=== PATIENT | male | born 1950 | race Caucasian/White ===

== ENCOUNTER → 2021-04-08 14:11 | Outpatient (BNVA) | payer OTHER, SELFPAY | PROVIDERS: PCP Family Medicine; Visit Provider Urology | DX: R35.0 Frequency of micturition (principal); N30.11 Interstitial cystitis (chronic) with hematuria; R35.1 Nocturia; N20.0 Calculus of kidney; N40.1 Benign prostatic hyperplasia with lower urinary tract symptoms; N13.8 Other obstructive and reflux uropathy; Z88.8 Allergy status to other drugs, medicaments and biological substances; Z79.899 Other long term (current) drug therapy | CPT/HCPCS: 51798; 99212 ==

== ENCOUNTER → 2021-10-10 10:49 | Outpatient (BNVA) | payer OTHER, SELFPAY | PROVIDERS: PCP Family Medicine; Visit Provider Urology ==

== ENCOUNTER → 2022-04-14 11:20 | Outpatient (BNVA) | payer OTHER, SELFPAY | PROVIDERS: PCP Family Medicine; Visit Provider Urology | DX: N40.1 Benign prostatic hyperplasia with lower urinary tract symptoms (principal); N13.8 Other obstructive and reflux uropathy; R35.0 Frequency of micturition; N20.0 Calculus of kidney; N30.11 Interstitial cystitis (chronic) with hematuria | CPT/HCPCS: 51798; 99212 ==

== ENCOUNTER → 2022-10-20 14:55 | Outpatient (BNVA) | payer OTHER, SELFPAY | PROVIDERS: PCP Family Medicine; Visit Provider Urology | DX: Z13.89 Encounter for screening for other disorder (principal) ==

== ENCOUNTER 2023-04-20 13:47 | Outpatient (AMB) | payer OTHER, SELFPAY ==
--- NOTE | 2023-04-20 13:48 | A.OFFVIS_ITS ---
Intake Intake Visit Reasons: 6m follow up/PVR Intake Note: Patient is present for Follow Up PVR Urology Med: Finasteride, Tamsulosin Antibiotic Allergy: Erythromycin, Blood Thinner: None Pharmacy: [facility] Allergies erythromycin base [ERYTHROMYCIN BASE] Allergy (Severe, Verified 04/20/23 13:54) GI UPSET hydrochlorothiazide [HYDROCHLOROTHIAZIDE] Allergy (Severe, Verified 04/20/23 13:54) PANCREATITIS zolpidem [ZOLPIDEM] Allergy (Intermediate, Verified 04/20/23 13:54) LACK OF EFFECT latex Allergy (Mild, Verified 04/20/23 13:54) Rash ibuprofen [IBUPROFEN] Adverse Reaction (Intermediate, Verified 04/20/23 13:54) LOOSE STOOLS HPI HPI Comments History of Present Illness Details David is a pleasant male. He is a patient of Dr. Mccormick. He is seen for the following urologic conditions - interstitial cystitis - lower urinary tract symptoms Bladder currently stable Does have triggers from spicy food Good response when he takes Tums and Tagamet as needed [facility] Elm[facility] Medications represcribed Six month follow-up Interstitial cystitis Longstanding Primary therapy diet modification Current therapy Pyridium and Elmiron Also takes Tums and Tagamet as needed Lower urinary tract symptoms Longstanding Response to finasteride and tamsulosin [facility]rol[facility] No stones on prior ultrasound September 2018 [facility] Medical History Interstitial cystitis (chronic) with hematuria Nocturia Renal stones Review of Systems Const Denies chills and Denies fever(s) Card Reports no additional complaints and Denies syncope Resp Denies cough GI Denies abdominal pain and Denies heartburn Reports as per HPI and Denies change in libido Neuro Denies syncope Psych Denies change in libido Endo Denies change in libido Physical Exam Const General: cooperative, healthy appearing, comfortable and no acute distress Orientation/consciousness: patient oriented x3 HEENT Face and sinus: Yes normal facial exam Mouth: moist mucous membranes Neck Neck: Yes normal visual inspection, Yes full ROM and Yes trachea midline Chest Chest palpation & inspection: normal inspection of the chest Resp Effort & Inspection: normal respiratory effort, able to speak in complete sentences and no respiratory distress GI Inspection: Yes normal to inspection Back/Spine/Pelvis Cervical Spine: normal cervical lordosis Thoracic/Lumbar Spine: thoracic and lumbar spine normal to inspection Skin General skin exam: no rashes or lesions noted Neuro General: patient oriented x3, gait normal, tone normal and moves all extremities Extrem General: Yes normal to inspection and Yes capillary refill normal Assessment & Plan Assessment & Plan (1) Interstitial cystitis (chronic) with hematuria: Code(s): N30.11 - Interstitial cystitis (chronic) with hematuria (2) Nocturia: Code(s): R35.1 - Nocturia (3) BPH w urinary obs/LUTS: Code(s): N40.1 - Benign prostatic hyperplasia with lower urinary tract symptoms; N13.8 - Other obstructive and reflux uropathy Plan Six month follow-up Orders: Orders AMB Urinalysis Automated 04/20/23 Z13.9 - Encounter for screening, unspecified AMB Post Void Residual by ultrasound 04/20/23 N40.1 - Benign prostatic hyperplasia with lower urinary tract symptoms, N13.8 - Other obstructive and reflux uropathy Medications: Refilled finasteride 5 mg PO DAILY 90 tabs 1RF 90 days N40.1 - Benign prostatic hyperplasia with lower urinary tract symptoms, N13.8 - Other obstructive and reflux uropathy tamsulosin 0.4 mg PO BEDTIME 90 caps 1RF 90 days N40.1 - Benign prostatic hyperplasia with lower urinary tract symptoms, N13.8 - Other obstructive and reflux uropathy Patient Instructions: Imaging studies, laboratory and physical exam results were discussed and reviewed in detail. No major barriers to patient understanding were identified. An opportunity to ask questions regarding the treatment plan was provided. All questions were answered. The patient expressed understanding and agreement with the above treatment plan. The patient is aware they should contact our office by phone for worsening of their current condition or the appearance of new urologic symptoms. Compliance is encouraged with any medications and followup testing that is ordered. It is a privilege to participate in the urologic care of your patient. If you have any questions or concerns regarding treatment for the above conditions, or other urologic issues, please do not hesitate to contact me. The office telephone contact is [phone]. This note is constructed using voice recognition software. While every effort has been made to ensure accuracy green building design specialist errors may have been included. Yours sincerely, Dr Daniel Brasher MD, [facility] - Urology Providers of Expert, Compassionate Care for the Genitourinary System Coding Level of Care Code Est Pt Level 3 (53882) Diagnoses Interstitial cystitis (chronic) with hematuria N30.11 Nocturia R35.1 BPH w urinary obs/LUTS N40.1; N13.8
== END 2023-04-20 14:51 | disposition home or self-care (01) ==
PROVIDERS: PCP Family Medicine; Visit Provider Urology
DX: N40.1 Benign prostatic hyperplasia with lower urinary tract symptoms (principal); N13.8 Other obstructive and reflux uropathy; N30.11 Interstitial cystitis (chronic) with hematuria; R35.1 Nocturia
CPT/HCPCS: 99213

== ENCOUNTER → 2023-04-20 13:47 | Outpatient (BNVA) | payer OTHER, SELFPAY | PROVIDERS: PCP Family Medicine; Visit Provider Urology | DX: N40.1 Benign prostatic hyperplasia with lower urinary tract symptoms (principal); N13.8 Other obstructive and reflux uropathy; N30.11 Interstitial cystitis (chronic) with hematuria; R35.1 Nocturia | CPT/HCPCS: 99212 ==

== ENCOUNTER 2023-12-09 10:45 | Outpatient (AMB) | payer OTHER, SELFPAY ==
--- NOTE | 2023-12-09 10:53 | A.OFFVIS_ITS ---
Intake Intake Visit Reasons: 6M PVR confirmed Intake Note: Patient presents today for a follow up on: PVR Meds- Finasteride, Pyridium prn, Tamsulosin, Elmiron Allergies to Antibiotic- Erytrhomycin Blood Thinner- None Post Void Residual: 27ml Tap Builder Required: No Accompanied by: Self / Same As Patient Allergies erythromycin base [ERYTHROMYCIN BASE] Allergy (Severe, Verified 12/09/23 10:55) GI UPSET hydrochlorothiazide [HYDROCHLOROTHIAZIDE] Allergy (Severe, Verified 12/09/23 10:55) PANCREATITIS zolpidem [ZOLPIDEM] Allergy (Intermediate, Verified 12/09/23 10:55) LACK OF EFFECT latex Allergy (Mild, Verified 12/09/23 10:55) Rash ibuprofen [IBUPROFEN] Adverse Reaction (Intermediate, Verified 12/09/23 10:55) LOOSE STOOLS Medication List - Last Reconciled 12/09/23 by Daniel Brasher MD cholecalciferol (vitamin D3) 1,250 mcg PO QWEEK diclofenac sodium 1% grams topical finasteride 5 mg PO DAILY 90 days fluticasone propionate 50 mcg/actuation 1 spray intranasal DAILY levothyroxine (Synthroid) 0 mcg PO qytzjn-fpayknzx-srkbnuz 6,000-19,000 -30,000 unit (Creon) caps PO oxycodone 5 mg PO TID PRN pentosan polysulfate sodium (Elmiron) 200 mg (2 x 100 mg) PO BID 90 days phenazopyridine (Pyridium) 200 mg PO TID 90 days ramipril 2.5 mg PO DAILY tamsulosin (Flomax) 0.4 mg PO BEDTIME 30 days tamsulosin 0.4 mg PO BEDTIME 90 days vitamin A 4 caps PO DAILY HPI HPI Comments History of Present Illness Details David is a pleasant male. He is a patient of Dr. Mccormick. 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 Receives prostate medications [facility] Elmiron [facility] Medications represcribed Six month follow-up Interstitial cystitis Longstanding Primary therapy diet modification Current therapy Pyridium and Elmiron Also takes Tums and Tagamet as needed Lower urinary tract symptoms Longstanding Response to finasteride and tamsulosin [facility]rol[facility] No stones on prior ultrasound September 2018 [facility] Medical History Renal stones Interstitial cystitis (chronic) with hematuria Nocturia Review of Systems Const Denies chills and Denies fever(s) Card Reports no additional complaints and Denies syncope Resp Denies cough GI Denies abdominal pain and Denies heartburn Reports as per HPI and Denies change in libido Neuro Denies syncope Psych Denies change in libido Endo Denies change in libido Physical Exam Const General: cooperative, healthy appearing, comfortable and no acute distress Orientation/consciousness: patient oriented x3 HEENT Face and sinus: Yes normal facial exam Mouth: moist mucous membranes Neck Neck: Yes normal visual inspection, Yes full ROM and Yes trachea midline Chest Chest palpation & inspection: normal inspection of the chest Resp Effort & Inspection: normal respiratory effort, able to speak in complete sentences and no respiratory distress GI Inspection: Yes normal to inspection Back/Spine/Pelvis Cervical Spine: normal cervical lordosis Thoracic/Lumbar Spine: thoracic and lumbar spine normal to inspection Skin General skin exam: no rashes or lesions noted Neuro General: patient oriented x3, gait normal, tone normal and moves all extremities Extrem General: Yes normal to inspection and Yes capillary refill normal Office Procedures Post Void Residual Post Residual Void Post Void Residual (PVR): 27 [id number]-[id number] Void Residual by ultrasound Assessment & Plan Assessment & Plan (1) Renal stones: Code(s): N20.0 - Calculus of kidney (2) BPH w urinary obs/LUTS: Code(s): N40.1 - Benign prostatic hyperplasia with lower urinary tract symptoms; N13.8 - Other obstructive and reflux uropathy (3) Interstitial cystitis (chronic) with hematuria: Code(s): N30.11 - Interstitial cystitis (chronic) with hematuria Plan Six-month follow-up office Orders: Orders AMB Post Void Residual by ultrasound Today R33.9 - Retention of urine, unspecified Medications: Refilled pentosan polysulfate sodium (Elmiron) 200 mg (2 x 100 mg) PO BID 90 days 360 caps 1RF interstitial cystitis finasteride 5 mg PO DAILY 90 days 90 tabs 1RF N13.8 - Other obstructive and r eflux uropathy, N40.1 - Benign prostatic hyperplasia with lower urinary tract symptoms tamsulosin 0.4 mg PO BEDTIME 90 days 90 caps 1RF N13.8 - Other obstructive and reflux uropathy, N40.1 - Benign prostatic hyperplasia with lower urinary tract symptoms Patient Instructions: Imaging studies, laboratory and physical exam results were discussed and reviewed in detail. No major barriers to patient understanding were identified. An opportunity to ask questions regarding the treatment plan was provided. All questions were answered. The patient expressed understanding and agreement with the above treatment plan. The patient is aware they should contact our office by phone for worsening of their current condition or the appearance of new urologic symptoms. Compliance is encouraged with any medications and followup testing that is ordered. It is a privilege to participate in the urologic care of your patient. If you have any questions or concerns regarding treatment for the above conditions, or other urologic issues, please do not hesitate to contact me. The office telephone contact is [phone]. This note is constructed using voice recognition software. While every effort has been made to ensure accuracy code enforcement supervisor errors may have been included. Yours sincerely, Dr Daniel Brasher MD, [facility] - Urology Providers of Expert, Compassionate Care for the Genitourinary System Coding Level of Care Code Est Pt Level 3 (12460) Diagnoses Renal stones N20.0 BPH w urinary obs/LUTS N40.1; N13.8 Interstitial cystitis (chronic) with hematuria N30.11 CPT Codes Post Residual Void - PVR CPT Code: 50935-Kzss Void Residual by ultrasound ([id number])
== END 2023-12-09 11:25 | disposition home or self-care (01) ==
PROVIDERS: PCP Family Medicine; Referring Provider Family Medicine; Visit Provider Urology
DX: N20.0 Calculus of kidney (principal); N40.1 Benign prostatic hyperplasia with lower urinary tract symptoms; N13.8 Other obstructive and reflux uropathy; N30.11 Interstitial cystitis (chronic) with hematuria
CPT/HCPCS: 99213

== ENCOUNTER → 2023-12-09 10:45 | Outpatient (BNVA) | payer OTHER, SELFPAY | PROVIDERS: PCP Family Medicine; Visit Provider Urology | DX: N20.0 Calculus of kidney (principal); N40.1 Benign prostatic hyperplasia with lower urinary tract symptoms; N13.8 Other obstructive and reflux uropathy; N30.11 Interstitial cystitis (chronic) with hematuria | CPT/HCPCS: 51798; 99212 ==

== ENCOUNTER 2024-06-08 10:52 | Outpatient (AMB) | payer OTHER, SELFPAY ==
--- NOTE | 2024-06-08 11:06 | MHC.OFFVIS ---
Intake Visit Reasons: 6m/PVR Intake Note: Patient is Present for PVR Urology Med: Tamsulosin, Finasteride Antibiotic Allergy:None Blood Thinner: None Last PVR: 27ml Todays PVR: 0ml Rehabilitation Engineer Required: No Accompanied by: Self / Same As Patient Allergies erythromycin base [ERYTHROMYCIN BASE] Allergy (Severe, Verified 06/08/24 11:31) GI UPSET hydrochlorothiazide [HYDROCHLOROTHIAZIDE] Allergy (Severe, Verified 06/08/24 11:31) PANCREATITIS zolpidem [ZOLPIDEM] Allergy (Intermediate, Verified 06/08/24 11:31) LACK OF EFFECT latex Allergy (Mild, Verified 06/08/24 11:31) Rash ibuprofen [IBUPROFEN] Adverse Reaction (Intermediate, Verified 06/08/24 11:31) LOOSE STOOLS Medication List - Last Reconciled 06/08/24 by Daniel Brasher MD cholecalciferol (vitamin D3) 1,250 mcg PO QWEEK diclofenac sodium 1% grams topical finasteride 5 mg PO DAILY 90 days fluticasone propionate 50 mcg/actuation 1 spray intranasal DAILY levothyroxine (Synthroid) 0 mcg PO nqszln-wzmozslz-egnosaw 6,000-19,000 -30,000 unit (Creon) caps PO oxycodone 5 mg PO TID PRN pentosan polysulfate sodium (Elmiron) 100 mg PO ONCE 90 days phenazopyridine (Pyridium) 200 mg PO TID 90 days ramipril 2.5 mg PO DAILY tamsulosin 0.4 mg PO BEDTIME 90 days vitamin A 4 caps PO DAILY HPI Comments Details: David is a pleasant male. He is a patient of Dr. Mccormick. He is seen for the following urologic conditions - interstitial cystitis - lower urinary tract symptoms Six-month bladder follow-up Bladder currently stable Does have triggers from spicy food Good response when he takes Tums and Tagamet as needed [facility] Elmiron [facility] - [facility]ide, tamsulosin Medications represcribed Six month follow-up Interstitial cystitis Longstanding Primary therapy diet modification Current therapy Pyridium and Elmiron Also takes Tums and Tagamet as needed Lower urinary tract symptoms Longstanding Response to finasteride and tamsulosin [facility] No stones on prior ultrasound September [facility] Medical History Renal stones Interstitial cystitis (chronic) with hematuria Nocturia Review of Systems Const Denies chills and Denies fever(s) Card Reports no additional complaints and Denies syncope Resp Denies cough GI Denies abdominal pain and Denies heartburn Reports as per HPI and Denies change in libido Neuro Denies syncope Psych Denies change in libido Endo Denies change in libido Physical Exam Const General: cooperative, healthy appearing, comfortable and no acute distress Orientation/consciousness: patient oriented x3 HEENT Face and sinus: Yes normal facial exam Mouth: moist mucous membranes Neck Neck: Yes normal visual inspection, Yes full ROM and Yes trachea midline Chest Chest palpation & inspection: normal inspection of the chest Resp Effort & Inspection: normal respiratory effort, able to speak in complete sentences and no respiratory distress GI Inspection: Yes normal to inspection Back/Spine/Pelvis Cervical Spine: normal cervical lordosis Thoracic/Lumbar Spine: thoracic and lumbar spine normal to inspection Skin General skin exam: no rashes or lesions noted Neuro General: patient oriented x3, gait normal, tone normal and moves all extremities Extrem General: Yes normal to inspection and Yes capillary refill normal Office Procedures Post Void Residual Post Residual Void Post Void Residual (PVR): 0 [id number]-Evdz Void Residual by ultrasound Assessment & Plan Assessment & Plan (1) Nocturia: Code(s): R35.1 - Nocturia Category: Medical (2) Interstitial cystitis (chronic) with hematuria: Code(s): N30.11 - Interstitial cystitis (chronic) with hematuria Category: Medical Plan Six-month follow-up office Orders: Orders AMB Post Void Residual by ultrasound 06/08/24 N13.8 - Other obstructive and reflux uropathy, N40.1 - Benign prostatic hyperplasia with lower urinary tract symptoms Medications: Discontinued tamsulosin Discontinued Reason: Patient Completed Course 0.4 mg PO BEDTIME 30 days 30 caps 0RF N13.8 - Other obstructive and reflux uropathy, N40.1 - Benign prostatic hyperplasia with lower urinary tract symptoms Patient Instructions: Imaging studies, laboratory and physical exam results were discussed and reviewed in detail. No major barriers to patient understanding were identified. An opportunity to ask questions regarding the treatment plan was provided. All questions were answered. The patient expressed understanding and agreement with the above treatment plan. The patient is aware they should contact our office by phone for worsening of their current condition or the appearance of new urologic symptoms. Compliance is encouraged with any medications and followup testing that is ordered. It is a privilege to participate in the urologic care of your patient. If you have any questions or concerns regarding treatment for the above conditions, or other urologic issues, please do not hesitate to contact me. The office telephone contact is [phone]. This note is constructed using voice recognition software. While every effort has been made to ensure accuracy lip reading teacher errors may have been included. Yours sincerely, Dr Daniel Brasher MD, [facility] - Urology Providers of Expert, Compassionate Care for the Genitourinary System Coding Level of Care Code Est Pt Level 3 (98215) Diagnoses Nocturia R35.1 Interstitial cystitis (chronic) with hematuria N30.11 CPT Codes Post Residual Void - PVR CPT Code: 85444-Nhca Void Residual by ultrasound ([id number])
== END 2024-06-08 11:59 | disposition home or self-care (01) ==
PROVIDERS: PCP Family Medicine; Referring Provider Family Medicine; Visit Provider Urology
DX: R35.1 Nocturia (principal); N30.11 Interstitial cystitis (chronic) with hematuria
CPT/HCPCS: 99213

== ENCOUNTER → 2024-06-08 10:52 | Outpatient (BNVA) | payer OTHER, SELFPAY | PROVIDERS: PCP Family Medicine; Visit Provider Urology | DX: N30.11 Interstitial cystitis (chronic) with hematuria (principal); N20.0 Calculus of kidney; R35.1 Nocturia | CPT/HCPCS: 51798; 99212 ==

== ENCOUNTER 2024-12-06 10:39 | Outpatient (AMB) | payer OTHER, SELFPAY ==
--- NOTE | 2024-12-06 10:52 | A.OFFVIS_ITS ---
Intake Visit Reasons: 6 month Intake Note: Patient is present for 6M F/U Urology Medication:PENTOSAN POLYSULFATE,PHENAZOPYRIDINE,TAMSULOSIN,FINASTERTIDE Antibiotic Allergy:ERYTHROMYCIN Blood Thinner:NONE Seat Cover Installer Required: No Allergies erythromycin base [ERYTHROMYCIN BASE] Allergy (Severe, Verified 12/06/24 10:53) GI UPSET hydrochlorothiazide [HYDROCHLOROTHIAZIDE] Allergy (Severe, Verified 12/06/24 10:53) PANCREATITIS zolpidem [ZOLPIDEM] Allergy (Intermediate, Verified 12/06/24 10:53) LACK OF EFFECT latex Allergy (Mild, Verified 12/06/24 10:53) Rash ibuprofen [IBUPROFEN] Adverse Reaction (Intermediate, Verified 12/06/24 10:53) LOOSE STOOLS HPI Comments Details: David is a pleasant male. He is a patient of Dr. Mccormick. He is seen for the following urologic conditions - interstitial cystitis - lower urinary tract symptoms Six-month bladder follow-up Bladder currently stable Does have triggers from spicy food Good response when he takes Tums and Tagamet as needed Receives prostate medications and Elmiron through the [place] - finasteride, tamsulosin Medications represcribed Six month follow-up Interstitial cystitis Longstanding Primary therapy diet modification Current therapy Pyridium and Elmiron Also takes Tums and Tagamet as needed Lower urinary tract symptoms Longstanding Response to finasteride and tamsulosin Medications through [place] Nephrolithiasis No stones on prior ultrasound September 2018 [facility] Medical History Renal stones Interstitial cystitis (chronic) with hematuria Nocturia Results AMB Urinalysis, Automated UA Leukoctes 0 Alphonso/uL Last Edit by JEN De León on 12/06/24 11:19 UA Nitrite Negative Last Edit by JEN De León on 12/06/24 11:19 UA Urobilinogen 0.2 mg/dL Last Edit by JEN De León on 12/06/24 11:1 9 UA Protein 15 mg/dL Last Edit by JEN De León on 12/06/24 11:19 UA pH 5.0 Last Edit by JEN De León on 12/06/24 11:19 UA Blood 0 José Miguel/uL Last Edit by JEN De León on 12/06/24 11:19 UA Specific [place] 1.030 Last Edit by JEN De León on 12/06/24 11: 19 UA Ketone Positive Last Edit by JEN De León on 12/06/24 11:19 UA Bilirubin 0 mg/dL Last Edit by JEN De León on 12/06/24 11:19 UA Glucose 0 mg/dL Last Edit by JEN De León on 12/06/24 11:19 Assessment & Plan Assessment & Plan Orders: Orders AMB Urinalysis Automated Today Z13.9 - Encounter for screening, unspecified Medications: Refilled pentosan polysulfate sodium (Elmiron) 100 mg PO DAILY 90 days 90 caps 1RF interstitial cystitis N13.8 - Other obstructive and reflux uropathy, N40.1 - Benign prostatic hyperplasia with lower urinary tract symptoms Coding
== END 2024-12-06 11:31 | disposition home or self-care (01) ==
LOC: HO.HUSH 10:40
PROVIDERS: PCP Family Medicine; Visit Provider Urology
DX: Z13.9 Encounter for screening, unspecified (principal)

== ENCOUNTER → 2024-12-06 10:39 | Outpatient (BNVA) | payer OTHER, SELFPAY | PROVIDERS: PCP Family Medicine; Visit Provider Urology | DX: N40.1 Benign prostatic hyperplasia with lower urinary tract symptoms (principal); N13.8 Other obstructive and reflux uropathy; R35.1 Nocturia; N30.11 Interstitial cystitis (chronic) with hematuria | CPT/HCPCS: 81003; 99212 ==

== ENCOUNTER 2025-06-19 11:35 | Outpatient (AMB) | payer OTHER, SELFPAY ==
--- NOTE | 2025-06-19 11:43 | MHC.OFFVIS ---
Intake Visit Reasons: 6m follow up Intake Note: Patient is present for 6M F/U Urology Medication:TAMSULOSIN,FINASTERTIDE, elmiron Blood Thinner:NONE Bunk House Worker Required: No Accompanied by: Self / Same As Patient Allergies erythromycin base (ERYTHROMYCIN BASE) Allergy (Severe, Verified 06/19/25 11:45) GI UPSET hydrochlorothiazide (HYDROCHLOROTHIAZIDE) Allergy (Severe, Verified 06/19/25 11:45) PANCREATITIS zolpidem (ZOLPIDEM) Allergy (Intermediate, Verified 06/19/25 11:45) LACK OF EFFECT latex Allergy (Mild, Verified 06/19/25 11:45) Rash ibuprofen (IBUPROFEN) Adverse Reaction (Intermediate, Verified 06/19/25 11:45) LOOSE STOOLS HPI Comments Details: David is a pleasant male. He is a patient of Dr. Mccormick. He is seen for the following urologic conditions - interstitial cystitis - lower urinary tract symptoms Six-month bladder follow-up Good response when he takes Tums and Tagamet as needed [facility] - [facility]ide, tamsulosin Interstitial cystitis Longstanding Primary therapy diet modification Current therapy Pyridium and Elmiron Also takes Tums and Tagamet as needed Lower urinary tract symptoms Longstanding Response to finasteride and tamsulosin [facility] No stones on prior ultrasound September 2018 [facility] Medical History Renal stones Interstitial cystitis (chronic) with hematuria Nocturia Review of Systems Const Denies chills and Denies fever(s) Card Reports no additional complaints and Denies syncope Resp Denies cough GI Denies abdominal pain and Denies heartburn Reports as per HPI and Denies change in libido Neuro Denies syncope Psych Denies change in libido Endo Denies change in libido Physical Exam Const General: cooperative, healthy appearing, comfortable and no acute distress Orientation/consciousness: patient oriented x3 HEENT Face and sinus: Yes normal facial exam Mouth: moist mucous membranes Neck Neck: Yes normal visual inspection, Yes full ROM and Yes trachea midline Chest Chest palpation & inspection: normal inspection of the chest Resp Effort & Inspection: normal respiratory effort, able to speak in complete sentences and no respiratory distress GI Inspection: Yes normal to inspection Back/Spine/Pelvis Cervical Spine: normal cervical lordosis Thoracic/Lumbar Spine: thoracic and lumbar spine normal to inspection Skin General skin exam: no rashes or lesions noted Neuro General: patient oriented x3, gait normal, tone normal and moves all extremities Extrem General: Yes normal to inspection and Yes capillary refill normal Assessment & Plan Assessment & Plan (1) Interstitial cystitis (chronic) with hematuria: Code(s): N30.11 - Interstitial cystitis (chronic) with hematuria Category: Medical (2) Renal stones: Code(s): N20.0 - Calculus of kidney Category: Medical Plan Six-month follow-up Patient Instructions: This note is constructed using voice recognition software. While every effort has been made to ensure accuracy cylinder press operator apprentice errors may have been included. Imaging studies, laboratory and physical exam results were discussed and reviewed in detail. No major barriers to patient understanding were identified. An opportunity to ask questions regarding the treatment plan was provided. All questions were answered. The patient expressed understanding and agreement with the above treatment plan. The patient is aware they should contact our office by phone for worsening of their current condition or the appearance of new urologic symptoms. Compliance is encouraged with any medications and followup testing that is ordered. It is a privilege to participate in the urologic care of your patient. If you have any questions or concerns regarding treatment for the above conditions, or other urologic issues, please do not hesitate to contact me. The office telephone contact is [phone]. Sincerely, Dr Daniel Brasher MD, [facility] - Urology Compassionate Specialist Care for the Genitourinary System Coding Level of Care Code Est Pt Level 3 (36478) Complex visit Add On G2211 Diagnoses Interstitial cystitis (chronic) with hematuria N30.11 Renal stones N20.0
--- OUTSIDE RECORDS SUMMARY | 2025-06-19 15:05 | XMS_ITS | Encounter Summary ---
Author Organization [facility] Address [address] [place] [address] Phone Care Team Providers Care Farm Machine Tender Name Role Phone Dung Mccormick MD Unavailable Sol Flores MD Unavailable [phone] Joe Mcpherson CHURCH BUSINESS ADMINISTRATOR Unavailable [phone] Dung Mccormick MD Primary Care Provider [phone] Geoff Ratliff DO Unavailable [phone] Lindsey Shin SOFA INSPECTOR Unavailable [phone] Sergio Fonseca MD Primary Care Provider Encounter Details Date Type Department Care Team (Latest Contact Info) Description 02/02/2018 Transcribe Orders [facility] Laboratory [address] [place], [place] [id number] Abad Xiao MD [address] [facility] [address] [place] [address] [email or web address] Anemia, unspecified type (Primary Dx); Liver cirrhosis secondary to nonalcoholic steatohepatitis (GARCIA) Social History Tobacco Use Types Packs/Day Years Used Date Smoking Tobacco: Former Cigarettes Q uit: 07/20/1997 Smokeless Tobacco: Never Alcohol Use Standard Drinks/Week Comments No 0 (1 standard drink = 0.6 oz pur e alcohol) Sex and Gender Information Value Date Recorded Sex Assigned at Male 04/16/2019 1:02 PM EDT Legal Sex Male 10:01 PM EDT Gender Identity Male 04/16/2019 1:02 PM EDT Sexual Orientation Not on file documented as of this encounter Plan of Treatment Upcoming Encounters Date Type Department Care Team (Late st Contact Info) Description 07/16/2025 1:00 PM EST Office Visit [facility] Pul[facility], Allergy [facility] Critical Care Medicine [address] [place] [address] [place] [address] Moose No MD [address] [place] [phone] documented as of this encounter Results * Miscellaneous lab test (02/02/2018 11:44 AM EDT) TESTS REQUESTED FIBROSURE [facility] SPECIMEN/TUBE TYPE RED TOP PROTECT FROM LIGHT [facility] REQUEST RECEIVED Request received. A separate order for the requested test will be generated by the laboratory. [facility] Blood 02/02/2018 11:4 4 AM EDT 02/02/2018 11:50 AM EDT us Abad Xiao MD LAB BLOOD ORDERABLES Final R esult [address] [address] * (ABNORMAL) Comprehensive metabolic panel (02/02/2018 11:44 AM EDT) SODIUM 145 133 - 146 mmol/L [facility] POTASSIUM 4.5 3.3 - 5.1 mmol/L [facility] CHLORIDE 105 96 - 108 mmol/L [facility] CO2 28 21 - 35 mmol/L [facility] BUN 16 6 - 19 mg/dL [facility] CREATININE 1.50 0.5 - 1.5 mg/dL [facility] GLUCOSE 107(H) 70 - 99 mg/dL [facility] ALBUMIN 4.6 3.9 - 4.8 g/dL [facility] TOTAL PROTEIN 7.5 6.5 - 8.0 g/dL [facility] CALCIUM 9.0 8.4 - 10.3 mg/dL [facility] ALKALINE PHOSPHATASE 160(H) 39 - 117 U/L [facility] TOTAL BILIRUBIN 0.8 0.0 - 1.2 mg/dL [facility] AST 25 0 - 37 U/L [facility] ALT 26 0 - 40 U/L [facility] GLOBULIN 2.9 1 - 4.8 g/dL [facility] EGFR 48(L) >59 mL/min/1.7 3m2 [facility] Comment:If patient is black, multiply result by 1.159. The eGFR calculation has changed from the MDRD equation to the CKD-EPI equation as of November 02, 2017. ANION GAP 17 10 - 20 mmol/L [facility] Blood 02/02/2018 11:4 4 AM EDT 02/02/2018 11:49 AM EDT us Abad Xiao MD LAB BLOOD ORDERABLES Final R esult Performing Organization Address City/State/[facility] Co de Phone Number [address] [address] * (ABNORMAL) CBC and differential (02/02/2018 11:44 AM EDT) WBC 4.64 3.40 - 11.20 K/uL [facility] RBC 4.12(L) 4.50 - 5.50 M/uL [facility] HGB 12.5(L) 13.0 - 17.0 g/dL [facility] HCT 38.8(L) 40.0 - 51.0 % [facility] PLT 121(L) 130 - 400 K/uL [facility] MCV 94.2 79.0 - 98.0 fL [facility] MCH 30.3 27.0 - 34.8 pg [facility] MCHC 32.2 31.5 - 36.0 g/dL [facility] RDW 14.4 10.8 - 14.6 % [facility] MPV 9.2(L) 9.4 - 12.4 fl [facility] NRBC 0.00 /100 WBCs [facility] ABSOLUTE NRBC 0.00 K/uL [facility] DIFF METHOD Auto [facility] NEUTS 73.1 45.30 - 77.70 % [facility] LYMPHS 18.1 12.30 - 39.70 % [facility] MONOS 5.8 4.10 - 12.80 % [facility] EOS 2.2 0 - 7.2 % [facility] BASOS 0.4 0 - 2.80 % [facility] Granulocytes, immature (%) 0.4 0.0 - 0.9 % [facility] ABSOLUTE NEUTS 3.39 1.40 - 7.70 K/uL [facility] ABSOLUTE LYMPHS 0.84 0.60 - 3.20 K/uL [facility] ABSOLUTE MONOS 0.27 0.11 - 0.59 K/uL [facility] ABSOLUTE EOS 0.10 0.01 - 0.50 K/uL [facility] ABSOLUTE BASOS 0.02 0.00 - 0.08 K/uL [facility] Granulocytes, immature 0.02 0.00 - 0.05 K/uL [facility] Blood 02/02/2018 11:4 4 AM EDT 02/02/2018 11:49 AM EDT us Abad Xiao MD LAB BLOOD ORDERABLES Final R esult [address] [address] * AFP (non-maternal specimens) (02/02/2018 11:44 AM EDT) AFP (NON-MATERNAL) 2.9 0.8 - 7.5 ng/mL [facility] Blood 02/02/2018 11:4 4 AM EDT 02/02/2018 11:49 AM EDT us Abad Xiao MD LAB BLOOD ORDERABLES Final R esult Performing Organization Address City/[facility]/ZIP Co de Phone Number [address] [address] documented in this encounter Visit Diagnoses Diagnosis Anemia, unspecified type- Primary Liver cirrhosis secondary to nonalcoholic steatohepatitis (GARCIA) documented in this encounter Care Teams Farm Machine Tender Relationship Specialty Start Date End Date Dung Mccormick MD [email or web address] PCP - General Family Medicine 07/21/17 01/03/23 Sergio Fonseca MD [address] [place] [phone] [email or web address] PCP - General Family Medicine 01/04/23 Dung Mccormick MD [email or web address] Historical LMR Provider 06/14/17 Sol Flores MD [address] [place] [phone] [email or web address] Provider 06/14/17 Joe Mcpherson CHURCH BUSINESS ADMINISTRATOR [address] [place] [phone] [email or web address] Historical LMR Provider 06/14/17 09/06/21 Geoff Ratliff DO [address] [place] [phone] [email or web address] Primary Oncologist Hematology and Oncology 09/16/17 Lindsey Shin FNP [address] [place] [address] [email or web address] Nurse Practitioner Oncology 06/11/21 documented as of this encounter Additional Source Comments The information contained in this document represents components of the legal health record. It is not the complete legal health record.[facility]
--- OUTSIDE RECORDS SUMMARY | 2025-06-19 15:05 | XMS_ITS | Clinical Summary ---
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 15 - 40 mm Aortic Valve Mean Gradient 4 mmHg Aortic Valve Time Velocity Integral 308.0 mm Aortic Valve Peak Velocity 1.4 m/s Aortic Valve Peak Gradient 7 mmHg Aortic Arch Diameter 27 mm Aortic Sinus Diameter 27 <40 mm Ascending Aorta Diameter 30 <36 mm Inferior Vena Cava Diameter 10 <21 mm Interventricular Septum Thickness 9 6 - 11 mm Left Ventricle Internal Diameter End Diastole 37 42 - 58 mm Left Ventricle Internal Diameter End Systole 19 <40 mm Left Ventricular Outflow Tract Diameter 18.0 mm LVOT VTI REST 204.0 mm Left Ventricular Outflow Tract Velocity 1.0 m/s Left Ventricular Outflow Tract Gradient at Rest 4 mmHg Left Ventricular Posterior Wall Thickness 9 6 - 11 mm Left Ventricle Ea Lateral Wave Speed 12.2 cm/s Left Ventricle Ea Septal Wave Speed 7.4 cm/s Ejection Fraction 65 50 - 75 Percent Mitral Valve Deceleration Time 201 ms Left Ventricle A Wave Speed 61.7 cm/s Left Ventricle E Wave Speed 69.4 cm/s Mitral Valve Mean Gradient 1 mmHg Mitral Valve Peak Gradient 3 mmHg Mitral Valve Area Continuity Equation 2.00 cm2 Pulmonary Valve Peak Velocity 1.6 m/s Pulmonary Valve Peak Gradient 10 mmHg Right Ventricle Basal Diameter 36 25 - 41 mm Raw LV EF% 74 % MV E/E' Tissue Velocity Lateral 5.69 Relative Wall Thickness 0.49 0.22 - 0.42 Left Ventricle indexed to BSA 56.3 g/m2 MV E/A ratio 1.1 MV E/e' septal 9.38 Left Ventricle E/e' Average 7.5 Aortic Valve Prosthetic Mean Gradient 4 mmHg Aortic Valve Sinus Index by BSA 16 mm/m2 Aorta Sinus Index by Height 1.69 cm/m Aorta Sinus CSA index by Height 3.58 cm2/m Ascending Aorta Index 17 mm/m2 Asc Aorta CSA Index by Height 4.42 cm2/m Mitral Valve Prosthetic Peak Gradient 3 mmHg Mitral Valve Prosthetic Mean Gradient 1 mmHg Pulmonic Valve Prosthetic Peak Gradient 10 mmHg MGB CV AV DIMENSIONLESS INDEX (PEAK) - STRESS ECHO DOBUT - REST 0.71 Ascending Aorta Index 17 mm Aortic Sinus Index 16 mm Ascending Aorta Diameter 17 mm Aortic Valve Sinus Index 1 16 20 - 32 mm AO ASC DIAM BSA INDEX 17.44 Echo E/Ea 9.38 Left Atrial Volume Index 19 16 - 34 mL/m2 GLS 20.6 % Right Ventricle TAPSE 27 >=17 mm Right Ventricle Pulse Doppler S Wave 11.3 >=9.5 cm/s Left Atrial Volume 33 mL Left Atrial Volume Index by Height 21 mL/m Aortic Valve Prosthetic Peak Gradient 7 mmHg Anatomical Region Laterality Modality Heart Ultrasound Narrative 05/14/2025 1:31 PM EDT Images from the original result were not included. Normal LV size and function EF 60 to 65%. Normal RV size and function. Normal left atrial size. Trace mitral regurgitation. Normal diastolic function for age. Could not get an accurate PA pressure estimation due to lack of TR jet. No clear cause for shortness of breath found on the study. Left Ventricle The left ventricle is normal in size. There is normal wall thickness. There is normal left ventricular systolic function. The LV ejection fraction is 65% (calculated via biplane measurement). Average global longitudinal strain (GLS) is -20.6% (normal), as measured on [employer] software platform. There are no wall motion abnormalities. LV diastolic function appears within normal limits for age. The E/A ratio is 1.1. The e' septal wave velocity is 7.4 cm/s. The e' lateral wave velocity is 12.2 cm/s. The average E/e' ratio is 7.5. Right Ventricle The right ventricle is normal in size. There is normal right ventricular systolic function. TAPSE is 27 mm. RV S' wave is 11.3 cm/s. Left Atrium The left atrium is normal in size. The left atrial volume index by BSA is 19 mL/m2. Right Atrium The right atrium is normal in size. The IVC is normal in size with normal inspiratory collapse. Mitral Valve The mitral valve appears normal. There is no mitral stenosis. There is trace to mild mitral regurgitation. Tricuspid Valve The tricuspid valve appears normal. There is no tricuspid stenosis. There is no tricuspid regurgitation. RV systolic pressure could not be estimated due to insufficient TR Doppler envelope. Aortic Valve The aortic valve is tricuspid. There is no aortic stenosis. The peak and mean aortic valve gradients are 7 mmHg and 4 mmHg respectively. There is no aortic regurgitation. The visualized portions of the thoracic aorta appear normal in size. Pulmonic Valve The pulmonic valve appears normal. There is no pulmonic stenosis. There is no pulmonic regurgitation. Pericardium There is no pericardial effusion. General Findings The image quality was adequate. Strain performed. Technique(s) used in the evaluation: Color flow Doppler and Spectral Doppler. The predominant rhythm during the study was sinus. Comparison Findings There are no prior studies for comparison. IAS/IVS The interatrial septum appears normal. Moose No MD CV ECHO ORDERABLES Final Res ult * CT HEAD WITHOUT CONTRAST (04/27/2025 2:27 PM EDT) MGB IMG CHAR CONVEYOR TENDER COMMENT Attending over-read: No subarachnoid hemorrhage, the questioned area is artifact. [facility] Seeo Anatomical Region Laterality Modality Head Computed Tomogra phy 04/27/2025 2:47 PM EDT Impressions 04/27/2025 3:27 PM EDT 1. No acute abnormality. 2. Subdural hygroma along the left convexity. A clinically significant result was initiated on 04/27/2025 3:00 PM, Message ID [id number]. A clinically significant result was initiated on 04/27/2025 3:27 PM, Message ID [id number]. ATTESTATION: I, Chivo Ponce as teaching physician, have reviewed the images for this case and if necessary edited the report originally created by Kody Lugo. Narrative 04/27/2025 3:[address] HEAD WITHOUT CONTRAST Referring clinician's provided indication for this examination in Epic: * Subdural hematoma TECHNIQUE: CT of the head was performed without intravenous contrast using tailored dose modulation techniques. Images were reconstructed in the axial, coronal, and sagittal planes. COMPARISON: CT FACE (SINUS) WITHOUT CONTRAST FINDINGS: Brain Parenchyma: No parenchymal hemorrhage, or evidence of acute territorial infarct. Hypodensities in the periventricular white matter, likely a manifestation of chronic small vessel disease. Ventricular System and Extra-Axial Spaces: Subdural hygroma along the left convexity, measuring up to 14 mm with associated 4 mm rightward midline shift. Trace hyperattenuation within the left frontal lobe has the appearance of artifact from the overlying prominent frontal sinus (3:98). Basal cisterns are patent. No hydrocephalus. Osseous and Extracranial Structures: No calvarial fracture. Right maxillary antrostomy, superior turbinectomy, and nasal septal resection. Mucosal thickening in the right frontal sinus, right-sided ethmoid air cells, right sphenoid sinus and bilateral maxillary sinuses, greater on the right side. No orbital abnormality. Procedure Note Chivo Ponce MD, PhD / System, Provider Not In, PhD - 04/27/2025 CT HEAD WITHOUT CONTRAST Referring clinician's provided indication for this examination in Epic: *Subdural hematoma TECHNIQUE: CT of the head was performed without intravenous contrast usingtailored dose modulation techniques. Images were reconstructed in theaxial, coronal, and sagittal planes. COMPARISON: CT FACE (SINUS) WITHOUT CONTRAST FINDINGS: Brain Parenchyma: No parenchymal hemorrhage, or evidence of acuteterritorial infarct. Hypodensities in the periventricular white matter,likely a manifestation of chronic small vessel disease. Ventricular System and Extra-Axial Spaces: Subdural hygroma along the leftconvexity, measuring up to 14 mm with associated 4 mm rightward midlineshift. Trace hyperattenuation within the left frontal lobe has theappearance of artifact from the overlying prominent frontal sinus (3:98).Basal cisterns are patent. No hydrocephalus. Osseous and Extracranial Structures: No calvarial fracture. Rightmaxillary antrostomy, superior turbinectomy, and nasal septal resection.Mucosal thickening in the right frontal sinus, right-sided ethmoid aircells, right sphenoid sinus and bilateral maxillary sinuses, greater onthe right side. No orbital abnormality. IMPRESSION: 1. No acute abnormality. 2. Subdural hygroma along the left convexity. A clinically significant result was initiated on 04/27/2025 3:00 PM,Message ID [id number]. A clinically significant result was initiated on 04/27/2025 3:27 PM,Message ID [id number]. ATTESTATION: I, Chivo Ponce as teaching physician, have reviewed theimages for this case and if necessary edited the report originally createdby Kody Lugo. us Shelley Dacosta PA-C IMG CT HEAD/NECK Edit ed Result - Final * PT-INR (04/27/2025 2:03 PM EDT) Only the most recent of2 resultswithin the time period is included. PT 12.3 10.2 - 12.9 sec [facility] INR 1.0 0.9 - 1.1 [facility] Comment:Therapeutic range fo r oral Vitamin K antagonists: 2.0-3.5 Blood 04/27/2025 2:03 PM EDT 04/27/2025 3:20 PM EDT us Shelley Dacosta PA-C LAB BLOOD ORDERABLES Final Result Performing Organization Address City/State/[facility] Co de Phone Number [address] [address] * (ABNORMAL) CBC and differential (04/27/2025 2:03 PM EDT) Only the most recent of2 resultswithin the time period is included. WBC 6.32 4.00 - 11.00 K/uL [facility] RBC 4.26(L) 4.50 - 5.90 M/uL [facility] HGB 12.4(L) 13.5 - 17.5 g/dL [facility] HCT 38.8(L) 41.0 - 53.0 % [facility] PLT 131(L) 150 - 450 K/uL [facility] MCV 91.1 80.0 - 100.0 fL [facility] MCH 29.1 27.0 - 31.0 pg [facility] MCHC 32.0 32.0 - 36.0 g/dL [facility] RDW 15.0(H) 11.5 - 14.5 % [facility] MPV 10.2 8.4 - 12.0 fL [facility] NRBC 0.00 0.00 /100 WBCs [facility] ABSOLUTE NRBC 0.00 0.00 K/uL [facility] DIFF METHOD Auto [facility] NEUTS 78.2(H) 48.0 - 76.0 % [facility] LYMPHS 11.4(L) 18.0 - 41.0 % [facility] MONOS 7.1 4.0 - 11.0 % [facility] EOS 2.5 0.0 - 5.0 % [facility] BASOS 0.5 0.0 - 1.5 % [facility] Granulocytes, immature (%) 0.3 0.0 - 0.9 % [facility] ABSOLUTE NEUTS 4.94 1.92 - 7.60 K/uL [facility] ABSOLUTE LYMPHS 0.72 0.72 - 4.10 K/uL [facility] ABSOLUTE MONOS 0.45 0.16 - 1.10 K/uL [facility] ABSOLUTE EOS 0.16 0.00 - 0.50 K/uL [facility] ABSOLUTE BASOS 0.03 0.00 - 0.15 K/uL [facility] Granulocytes, immature 0.02 0.00 - 0.09 K/uL [facility] Blood 04/27/2025 2:03 PM EDT 04/27/2025 3:20 PM EDT Shelley Dacosta PA-C LAB BLOOD ORDERABLES Final Result [address] [id number] * (ABNORMAL) Basic metabolic panel (04/27/2025 2:03 PM EDT) SODIUM 134 133 - 146 mmol/L [facility] CHLORIDE 103 96 - 108 mmol/L [facility] POTASSIUM 4.6 3.3 - 5.1 mmol/L [facility] CO2 23 21 - 35 mmol/L [facility] BUN 19 6 - 19 mg/dL [facility] CREATININE 1.50 0.5 - 1.5 mg/dL [facility] GLUCOSE 85 70 - 99 mg/dL [facility] CALCIUM 9.3 8.4 - 10.3 mg/dL [facility] EGFR 49(L) >59 mL/min/1.7 3m2 [facility] Comment:Estimated glomerular filtration rate calculated using the CKD-EPI refit equation. ANION GAP 13 10 - 20 mmol/L [facility] Blood 04/27/2025 2:03 PM EDT 04/27/2025 3:20 PM EDT Shelley Dacosta PA-C LAB BLOOD ORDERABLES Final Result [facility] [address] [place] [address] * CT FACE (SINUS) WITHOUT CONTRAST (04/26/2025 3:23 PM EDT) MGB IMG CHAR CONVEYOR TENDER COMMENT subdural collection [facility] Anatomical Region Laterality Modality Face Computed Tomogra phy 04/27/2025 10:0 4 AM EDT Impressions 04/27/2025 11:12 AM EDT 1. Prominent hypoattenuating left holohemispheric subdural collection, measuring up to 1.8 cm in coronal thickness, with mild associated rightward midline shift. This may represent a chronic subdural hematoma, but is suboptimally evaluated on this CT sinus exam. Recommend CT head for further evaluation. 2. Severe right-sided paranasal sinus disease, as detailed above. Large nasal septal defect, possibly postsurgical. A clinically significant result was initiated on 04/27/2025 11:12 AM, Message ID [id number]. Narrative 04/27/2025 11:[address] FACE (SINUS) WITHOUT CONTRAST Referring clinician's provided indication for this examination in Epic: * Sinusitis, chronic or recurrent TECHNIQUE: Multidetector-row CT of the sinuses was performed without intravenous contrast using tailored dose modulation techniques. Images were reconstructed in the axial, coronal, and sagittal planes. COMPARISON: None. FINDINGS: Frontal sinuses and frontoethmoidal junctions: The right frontal sinus is near completely opacified. Anterior and posterior ethmoid air cells: There is severe mucosal thickening involving the right ethmoid air cells. Maxillary sinuses and infundibula: Severe mucosal thickening involving right maxillary sinus. There are findings of possible right medial antrostomy. The ostium/ tiffany-ostium is narrowed by the mucosal thickening. There is mild mucosal thickening involving the left maxillary sinus. The infundibulum is opacified. Sphenoid sinuses and sphenoethmoidal recesses: Severe mucosal thickening on the right, with surrounding sclerosis. Nasal cavity: There is a large nasal septal defect, with absence of the right middle turbinate. This may be postsurgical in nature. Imaged maxillary teeth: Normal. No periapical lucencies. Mastoid air cells and middle ear cavities: Normal. Clear. Temporomandibular joints: Normal. No significant degenerative remodeling. Brain: There is a prominent hypoattenuating left holohemispheric subdural collection, measuring up to 1.8 cm in coronal thickness. There is mild associated rightward midline shift. Orbits and globes: Normal. No abnormality. Visualized upper aerodigestive tract: No mucosal abnormality. Soft tissue: Normal. Procedure Note Porter Banks MD - 04/27/2025 CT FACE (SINUS) WITHOUT CONTRAST Referring clinician's provided indication for this examination in Epic: *Sinusitis, chronic or recurrent TECHNIQUE: Multidetector-row CT of the sinuses was performed withoutintravenous contrast using tailored dose modulation techniques. Imageswere reconstructed in the axial, coronal, and sagittal planes. COMPARISON: None. FINDINGS: Frontal sinuses and frontoethmoidal junctions: The right frontal sinus isnear completely opacified. Anterior and posterior ethmoid air cells: There is severe mucosalthickening involving the right ethmoid air cells. Maxillary sinuses and infundibula: Severe mucosal thickening involvingright maxillary sinus. There are findings of possible right medialantrostomy. The ostium/ tiffany-ostium is narrowed by the mucosal thickening. There is mild mucosal thickening involving the left maxillary sinus. Theinfundibulum is opacified. Sphenoid sinuses and sphenoethmoidal recesses: Severe mucosal thickeningon the right, with surrounding sclerosis. Nasal cavity: There is a large nasal septal defect, with absence of theright middle turbinate. This may be postsurgical in nature. Imaged maxillary teeth: Normal. No periapical lucencies. Mastoid air cells and middle ear cavities: Normal. Clear. Temporomandibular joints: Normal. No significant degenerativeremodeling. Brain: There is a prominent hypoattenuating left holohemispheric subduralcollection, measuring up to 1.8 cm in coronal thickness. There is mildassociated rightward midline shift. Orbits and globes: Normal. No abnormality. Visualized upper aerodigestive tract: No mucosal abnormality. Soft tissue: Normal. IMPRESSION: 1. Prominent hypoattenuating left holohemispheric subdural collection,measuring up to 1.8 cm in coronal thickness, with mild associatedrightward midline shift. This may represent a chronic subdural hematoma,but is suboptimally evaluated on this CT sinus exam. Recommend CT head forfurther evaluation. 2. Severe right-sided paranasal sinus disease, as detailed above. Largenasal septal defect, possibly postsurgical. A clinically significant result was initiated on 04/27/2025 11:12 AM,Message ID [id number]. Moose No MD [facility] [place] HEAD/NECK Final Resul t * ANCA Vasculitis Panel (MPO and PR3) (04/12/2025 2:16 PM EDT) Pathologist [facility] MYELOPEROXIDASE AB <0.2 <0.4 (Negative) [facility] PROTEINASE 3 AB <0.2 <0.4 (Negative) [facility] Blood 04/12/2025 2:16 PM EDT 04/12/2025 2:48 PM EDT Moose No MD LAB BLOOD ORDERABLES Final R esult [facility] [address] [place] [address] * Myositis panel 3 (04/12/2025 2:16 PM EDT) Anti-Virginie-1 Ab <20 <20 units [facility] Anti-PL-7 Ab Negative Negative [facility] Comment: (NOTE) This test was developed and its performance characteristics determined by [facility]. It has not been cleared or approved by the Food and Drug Administration. Anti-PL-12 Ab Negative Negative [facility] Comment: (NOTE) This test was developed and its performance characteristics determined by [facility]. It has not been cleared or approved by the Food and Drug Administration. Anti-EJ Ab Negative Negative [facility] Comment: (NOTE) This test was developed and its performance characteristics determined by [facility]. It has not been cleared or approved by the Food and Drug Administration. Anti-OJ Ab Negative Negative [facility] Comment: (NOTE) This test was developed and its performance characteristics determined by [facility]. It has not been cleared or approved by the Food and Drug Administration. Anti-SRP Ab Negative Negative [facility] Comment: (NOTE) This test was developed and its performance characteristics determined by [facility]. It has not been cleared or approved by the Food and Drug Administration. Uolz-Lk-2-Ab Negative Negative [facility] Comment: (NOTE) This test was developed and its performance characteristics determined by [facility]. It has not been cleared or approved by the Food and Drug Administration. Ggso-[id number]-6fsgji Ab <20 <20 units [facility] Comment: (NOTE) This test was developed and its performance characteristics determined by [facility]. It has not been cleared or approved by the Food and Drug Administration. Anti-MDA-5 Ab (CADM-140) <20 <20 units [facility] Comment: (NOTE) This test was developed and its performance characteristics determined by [facility]. It has not been cleared or approved by the Food and Drug Administration. Anti-NXP-2 (P140) Ab <20 <20 units [facility] Comment: (NOTE) This test was developed and its performance characteristics determined by [facility]. It has not been cleared or approved by the Food and Drug Administration. Anti-PM/Scl-100 Ab <20 <20 units [facility] Comment: (NOTE) This test was developed and its performance characteristics determined by [facility]. It has not been cleared or approved by the Food and Drug Administration. Anti-Ku Ab Negative Negative [facility] Comment: (NOTE) This test was developed and its performance characteristics determined by [facility]. It has not been cleared or approved by the Food and Drug Administration. Anti-SS-A 52kD Ab, IgG <20 <20 units [facility] Comment: (NOTE) This test was developed and its performance characteristics determined by [facility]. It has not been cleared or approved by the Food and Drug Administration. Anti-U1 TAG MARKER Ab <20 <20 units [facility] Anti-U2 TAG MARKER Ab Negative Negative [facility] Comment: (NOTE) This test was developed and its performance characteristics determined by [facility]. It has not been cleared or approved by the Food and Drug Administration. Anti-U3 TAG MARKER (Fibrillarin) Negative Negative [facility] Comment: (NOTE) This test was developed and its performance characteristics determined by [facility]. It has not been cleared or approved by the Food and Drug Administration. Interpretation for Anti-Virginie-1, [id number], Anti-MDA-5, Anti-NXP-2, Anti-PM/Scl-100, Anti-SS-A 52 kD, Anti-U1 TAG MARKER: Negative: <20 Weak Positive: 20 - 39 Moderate Positive: 40 - 80 Strong Positive: >80 . Test Performed by: [facility] [address] [place] [address] Blood 04/12/2025 2:16 PM EDT 04/12/2025 2:38 PM EDT us Moose No MD LAB BLOOD ORDERABLES Final R esult Performing Organization Address City/[facility] Co de Phone Number [facility] * Mold panel (04/12/2025 2:16 PM EDT) MOLD PANEL <0.10 <0.70 kU/L [facility] Comment: (NOTE) Class 0 (Negative <0.10) ADDITIONAL INFORMATION Mold Panel: Penicillum notatum Cladosporium herbarum Aspergillus fumigatus Alexandra albicans Alternaria alternata Helminthosporium halodes Blood 04/12/2025 2:16 PM EDT 04/12/2025 2:48 PM EDT us Moose No MD LAB BLOOD ORDERABLES Final R esult Performing Organization Address City/[facility]/ZIP Co de Phone Number [facility] [address] [place] [address] * REI HYPERSENSITIVITY PANEL (04/12/2025 2:16 PM EDT) PIGEON DE ANTIGEN Weakly Positive [facility] PARAKEET ANTIGEN Negative [facility] COCKATIEL ANTIGEN Negative [facility] PARROT ANTIGEN Negative [facility] Comment: (NOTE) ADDITIONAL INFORMATION This result must be correlated with patients clinical response and should not solely be considered in the diagnosis. Test Performed by: [facility] [address] [place] [address] PIGEON SERA ANTIGEN Negative [facility] Blood 04/12/2025 2:16 PM EDT 04/12/2025 2:48 PM EDT us Moose No MD LAB BLOOD ORDERABLES Final R esult Performing Organization Address City/[facility] Co de Phone Number [facility] * CENTROMERE ANTIBODY (04/12/2025 2:16 PM EDT) Pathologist [facility] CENTROMERE IGG <0.2 <1.0 (Negative) U [facility] LAB MED/PATH [address] Blood 04/12/2025 2:16 PM EDT 04/12/2025 2:48 PM EDT us Moose No MD LAB BLOOD ORDERABLES Final R esult [facility] [address] [place] [address] * TAG MARKER ANTIBODY (04/12/2025 2:16 PM EDT) Pathologist [facility] TAG MARKER AB, IGG 0.6 <1.0 (Negative) U [facility] LAB MED/PATH [address] Blood 04/12/2025 2:16 PM EDT 04/12/2025 2:48 PM EDT us Moose No MD LAB BLOOD ORDERABLES Final R esult Performing Organization Address [facility] Co de Phone Number [facility] LAB MED/PATH [address] [place] [address] * (ABNORMAL) SS-A/SS-B antibodies (04/12/2025 2:16 PM EDT) ANTI-RO ANTIBODY 39.46(H) 0.00 - 19.99 OD [facility] Comment:Result checked RO INTERPRETATION Equivocal(A ) Negative [facility] ANTI-LA ANTIBODY 2.44 0.00 - 19.99 OD [facility] LA INTERPRETATION Negative Negative [facility] Blood 04/12/2025 2:16 PM EDT 04/12/2025 2:55 PM EDT us Moose No MD LAB BLOOD ORDERABLES Final R esult Performing Organization Address [facility] Co de Phone Number [address] [address] * RNA polymerase III antibody (04/12/2025 2:16 PM EDT) Pathologist [facility] RNAP3 IGG ABS <10.0 <20.0 (Negative) U [facility] LAB MED/PATH MAUNALOA Blood 04/12/2025 2:16 PM EDT 04/12/2025 2:38 PM EDT us Moose No MD LAB BLOOD ORDERABLES Final R esult Performing Organization Address City/[facility] Co de Phone Number [facility] LAB MED/PATH [address] [place] [address] * (ABNORMAL) Comprehensive metabolic panel (04/12/2025 2:16 PM EDT) Pathologist [facility] SODIUM 138 133 - 146 mmol/L [facility] POTASSIUM 4.6 3.3 - 5.1 mmol/L [facility] CHLORIDE 103 96 - 108 mmol/L [facility] CO2 22 21 - 35 mmol/L [facility] BUN 18 6 - 19 mg/dL [facility] CREATININE 1.50 0.5 - 1.5 mg/dL [facility] GLUCOSE 94 70 - 99 mg/dL [facility] ALBUMIN 4.3 3.9 - 4.8 g/dL [facility] TOTAL PROTEIN 7.6 6.5 - 8.0 g/dL [facility] CALCIUM 9.1 8.4 - 10.3 mg/dL [facility] ALKALINE PHOSPHATASE 203(H) 39 - 117 U/L [facility] TOTAL BILIRUBIN 0.5 0.0 - 1.2 mg/dL [facility] AST 23 0 - 37 U/L [facility] ALT 22 0 - 40 U/L [facility] GLOBULIN 3.3 1 - 4.8 g/dL [facility] EGFR 49(L) >59 mL/min/1.7 3m2 [facility] Comment:Estimated glomerular filtration rate calculated using the CKD-EPI refit equation. ANION GAP 18 10 - 20 mmol/L [facility] Blood 04/12/2025 2:16 PM EDT 04/12/2025 2:38 PM EDT us Moose No MD LAB BLOOD ORDERABLES Final R esult Performing Organization Address City/[facility]/ZIP Co de Phone Number [facility] [address] [place] [address] * U1RNP and Gamino antibodies (04/12/2025 2:16 PM EDT) ANTI-SM ANTIBODY 7.75 0.00 - 19.99 OD UNIT [facility] SM INTERPRETATION Negative Negative [facility] ANTI-TAG MARKER ANTIBODY 2.90 0.00 - 19.99 OD [facility]IT [facility] TAG MARKER INTERPRETATION Negative Negative [facility] Blood 04/12/2025 2:16 PM EDT 04/12/2025 2:55 PM EDT us Moose No MD LAB BLOOD ORDERABLES Final R esult [address] [address] * (ABNORMAL) TSH with reflex (04/12/2025 2:16 PM EDT) TSH 4.66(H) 0.27 - 4.20 uIU/mL [facility] Blood 04/12/2025 2:16 PM EDT 04/12/2025 2:38 PM EDT us Moose No MD LAB BLOOD ORDERABLES Final R esult [facility] [address] [place] [address] * CCP IgG antibodies (04/12/2025 2:16 PM EDT) ANTI-CCP IGG <8 0 - 16 U/mL [facility] Blood 04/12/2025 2:16 PM EDT 04/12/2025 2:55 PM EDT Moose No MD LAB BLOOD ORDERABLES Final R esult [address] [address] * Scl-70 antibody (04/12/2025 2:16 PM EDT) SCL 70 AB, IGG <0.2 <1.0 (Negative) U [facility]PATH [address] Blood 04/12/2025 2:16 PM EDT 04/12/2025 2:48 PM EDT us Moose No MD LAB BLOOD ORDERABLES Final R esult [facility] [address] [place] [address] * Virginie-1 antibody (04/12/2025 2:16 PM EDT) VIRGINIE 1 IGG <0.2 <1.0 (Negative) U [facility]PATH [address] Blood 04/12/2025 2:16 PM EDT 04/12/2025 2:48 PM EDT Moose No MD LAB BLOOD ORDERABLES Final R esult [facility]PATH [facility] [place] [address] * Double stranded DNA antibodies (04/12/2025 2:16 PM EDT) ANTI DSDNA ANTIBODY Negative at 1:10 [facility] Comment: Performing Physician, Porfirio Reese M.D., [id number] Normal: Negative at 1:10 To interpret a negative test for anti-hydaburg or double stranded DNA antibodies in a patient suspected of having systemic lupus erythematosus, the following limitation should be noted. Anti-double stranded DNA antibodies are usually detected in SLE patients with active disease, especially in those with active renal disease. Anti-DNA antibodies are usually not detected in SLE patients with spontaneous or drug-induced remissions. Blood 04/12/2025 2:16 PM EDT 04/12/2025 2:55 PM EDT Moose No MD LAB BLOOD ORDERABLES Final R esult [address] [address] * Hypersensitivity Pneumonitis Screen (04/12/2025 2:16 PM EDT) A. tenuis Ab, IgG 4.8 <12.0 MCG/ML [facility] A.fumigatis Ab, IgG 24.7 <46.0 mcg/mL [facility] A. pullulans Ab, IgG 6.1 <18.0 MCG/ML [facility] M. faeni Ab, IgG <2.0 <5.0 MCG/ML [facility] P. notatum Ab, IgG 15.9 <22.0 MCG/ML [facility] Phoma Ab, IgG 4.0 <8.0 MCG/ML [facility] T. viride Ab, IGG 2.8 <10.0 MCG/ML [facility] Comment: (NOTE) Antibody levels greater than the reference range indicate that the patient has been immunologically sensitized to the antigen. The significance of elevated IgG depends on the nature of the antigen and the patient's clinical history. The test method was the [employer] ImmunoCAP. *This test was developed and its performance characteristics determined by [employer]. It has not been cleared or approved by the U.S. Food and Drug Administration. FLAG Interpretation: A = Abnormal, H = High, L = Low Test Performed by: [employer] [id number] [address] Laceyella Sacchari IgG 11.9 <25.0 mcg/mL [facility] Blood 04/12/2025 2:16 PM EDT 04/12/2025 2:48 PM EDT Moose No MD LAB BLOOD ORDERABLES Final R esult Performing Organization Address [facility] Co de Phone Number [facility] * Anti-Neutrophil Cytoplasmic Antibody (ANCA) (04/12/2025 2:16 PM EDT) C-ANCA Negative Negative [facility] P-ANCA Negative Negative [facility] Comment: (NOTE) Negative for cANCA and pANCA patterns by immunofluorescence. ADDITIONAL INFORMATION This test was developed and its performance characteristics determined by [facility] in a manner consistent with CLIA requirements. This test has not been cleared or approved by the U.S. Food and Drug Administration. Blood 04/12/2025 2:16 PM EDT 04/12/2025 2:48 PM EDT us Moose No MD LAB BLOOD ORDERABLES Final R esult Performing Organization Address City/[facility]/ZIP Co de Phone Number [facility] LAB MED/PATH [facility] [place] [address] * Sedimentation rate (ESR) (04/12/2025 2:16 PM EDT) ESR 15 0 - 20 mm/h [facility] Blood 04/12/2025 2:16 PM EDT 04/12/2025 2:38 PM EDT us Moose No MD LAB BLOOD ORDERABLES Final R esult Performing Organization Address City/[facility]/ZIP Co de Phone Number [address] [address] * Rheumatoid factor (04/12/2025 2:16 PM EDT) RHEUMATOID FACTOR <10.0 0.0 - 14.0 IU/ml [facility] Blood 04/12/2025 2:16 PM EDT 04/12/2025 2:38 PM EDT Result Chad No MD LAB BLOOD ORDERABLES Final R esult Performing Organization Address [facility] Co de Phone Number [address] [address] * C-Reactive Protein (04/12/2025 2:16 PM EDT) C REACTIVE PROTEIN 3.2 0.0 - 4.0 mg/L [facility] Blood 04/12/2025 2:16 PM EDT 04/12/2025 2:38 PM EDT Result Chad No MD LAB BLOOD ORDERABLES Final R esult Performing Organization Address [facility]/ZIP Co de Phone Number [address] [address] * Antinuclear antibody (LALO) (04/12/2025 2:16 PM EDT) LALO SCREEN ON HEP 2 Negative Negative [facility] Blood 04/12/2025 2:16 PM EDT 04/12/2025 2:38 PM EDT Result Chad No MD LAB BLOOD ORDERABLES Final R esult Performing Organization Address City/[facility]/ZIP Co de Phone Number [address] [address] * Free T4 (04/12/2025 2:16 PM EDT) FREE T4 1.5 0.9 - 1.7 ng/dL [facility] 04/12/2025 2:16 PM EDT 04/12/2025 2:38 PM EDT us Moose No MD LAB BLOOD ORDERABLES Final R esult [address] [address] * Phosphorus (04/12/2025 2:16 PM EDT) PHOSPHORUS 2.7 2.7 - 4.5 mg/dL [facility] Blood 04/12/2025 2:16 PM EDT 04/12/2025 2:38 PM EDT us Moose No MD LAB BLOOD ORDERABLES Final R esult [address] [address] * NT-proBNP (04/12/2025 2:16 PM EDT) NT-PROBNP 319 0 - 450 pg/mL [facility] Blood 04/12/2025 2:1 6 PM EDT 04/12/2025 2:38 PM EDT us Moose No MD LAB BLOOD ORDERABLES Final R esult Performing Organization Address City/[facility]/ZIP Co de Phone Number [address] [address] * Magnesium (04/12/2025 2:16 PM EDT) MAGNESIUM 1.9 1.6 - 2.6 mg/dL [facility] Blood 04/12/2025 2:16 PM EDT 04/12/2025 2:38 PM EDT us Moose No MD LAB BLOOD ORDERABLES Final R esult Performing Organization Address City/[facility]/ZIP Co de Phone Number [address] [address] * CPK (creatine kinase) (04/12/2025 2:16 PM EDT) CREATINE KINASE 119 35 - 232 U/L [facility] Blood 04/12/2025 2:16 PM EDT 04/12/2025 2:38 PM EDT us Moose No MD LAB BLOOD ORDERABLES Final R esult Performing Organization Address [facility] Co de Phone Number [address] [address] * BD DXA SPINE AND HIP WITH FOREARM (04/09/2025 5:11 PM EDT) Anatomical Region Laterality Modality Bone Density Bone Density 04/09/2025 5:08 PM EDT Impressions 04/10/2025 5:13 PM EDT Interpretation: Osteopenia. Narrative 04/10/2025 5:13 PM EDT Referred By: CIRO BROWN Indications: Primary Hyperparathyroidism Scanner: [employer] A with serial# of [id number] located at [facility] Bone Density Scan (DXA) 04/09/25 Details of prior DXA scans are available by clicking View Full Report BMD T- Z- Skeletal Site gm/cm2 score score BMD Change Since Prior Scan ------ ----- ----- PA Spine (L1 L2 L3) 1.003 -0.60 0.40 N/A Total Hip (Left) 0.912 -0.80 0.00 N/A Femoral Neck (Left) 0.709 -1.60 -0.30 N/A Total Hip (Right) 0.911 -0.80 0.00 N/A Femoral Neck (Right) 0.724 -1.50 -0.20 N/A 1/3 Radius (Left) 0.809 -0.30 1.20 N/A ------ ----- ----- * Denotes significant change when >= 0.022 g/cm2 for the spine, 0.027 g/cm2 for the total hip, 0.029 g/cm2 for the femoral neck, 0.023 g/cm2 for the forearm (1/3 radius). Interpretation: Osteopenia. Technical Quality: Imaging of all sites was of adequate quality. FRAX: Based on FRAX(r) 3.6 ([place] White male), this patient's likelihood of hip fracture is 2.7% and major osteoporotic fracture is 9% over the next 10 years. The patient reported the following risks of fracture on a questionnaire: rheumatoid arthritis. Reviewed By: Jean Carlos Kelley MD on 04/10/2025 17:13:18 Additional Information: -World Health Organization criteria classify adults based on lowest T-score at PA spine, hip or forearm: Normal (T-score >= -1.0), Osteopenia (T-score between -1 and -2.5), or Osteoporosis (T-score <= -2.5). At [facility], T-scores are compared to peak bone density of a young white gender matched reference population. - For premenopausal women and men under the age of 50, Z-scores (comparison to age, gender, and ethnicity matched reference population) are used: Above expected range for age (Z-score >= 2.0), Within expected range of age (Z-score 1.9 to -1.9), or Below expected range for age (Z-score <= -2.0). - The Bone Health and Osteoporosis Foundation recommends that treatment be considered in men aged more than 50 years and in postmenopausal women with ANY of the following: Prior hip or vertebral fractures; T-score of <= -2.5 at the PA spine or hip; or 10 year fracture probability by FRAX of >= 3% for the hip or >= 20% for major osteoporotic fracture. - The FRAX algorithm (https://www.dewayne.ac.uk/FRAX/tool.aspx) is designed to predict 10-year fracture risk in treatment-naive adults between the ages of 40 and 90. It is not intended to be used in those receiving pharmacologic osteoporosis treatment. - The TBS is derived from the texture of the DXA spine image and has been shown to be related to bone microarchitecture and fracture risk. This data provides information independent of BMD value. It adds to fracture risk assessment with a FRAX adjusted for TBS score. If your patient had a TBS and qualified for a FRAX score, the reported FRAX score has been adjusted for TBS. TBS Score Interpretation 1.350 and greater Normal bone microarchitecture 1.200 to 1.350 Partially degraded bone microarchitecture 1.200 and less Degraded bone microarchitecture - Including race/ethnicity in the generation of T- or Z-scores or in the FRAX calculation is complicated, and currently undergoing active review to ensure that we can give patients the best information on their risk of fracture. - Some prior studies may not be compatible with our comparison software. - Click on View Full Report to see subsequent pages with images and prior bone density results. Procedure Note Jean Carlos Kelley MD - 04/10/2025 Referred By: CIRO BROWN Indications: Primary Hyperparathyroidism Scanner: [employer] A with serial# of [id number] located at [facility] Bone Density Scan (DXA) 04/09/25 Details of prior DXA scans are available by clicking View Full Report BMD T- Z- Skeletal Site gm/cm2 score score BMD Change Since Prior Scan ------ ----- PA Spine (L1 L2 L3) 1.003 -0.60 0.40 N/A Total Hip (Left) 0.912 -0.80 0.00 N/A Femoral Neck (Left) 0.709 -1.60 -0.30 N/A Total Hip (Right) 0.911 -0.80 0.00 N/A Femoral Neck (Right) 0.724 -1.50 -0.20 N/A 1/3 Radius (Left) 0.809 -0.30 1.20 N/A ------ ----- * Denotes significant change when >= 0.022 g/cm2 for the spine, 0.027g/cm2 for the total hip, 0.029 g/cm2 for the femoral neck, 0.023 g/cm2 for the forearm (1/3 radius). Interpretation: Osteopenia. Technical Quality: Imaging of all sites was of adequate quality. FRAX: Based on FRAX(r) 3.6 ([place] White male), this patient's likelihood of hip fracture is 2.7% and major osteoporotic fracture is 9% over the next10 years. The patient reported the following risks of fracture on a questionnaire: rheumatoid arthritis. Reviewed By: Jean Carlos Kelley MD on 04/10/2025 17:13:18 Additional Information: -World Health Organization criteria classify adults based on lowestT-score at PA spine, hip or forearm: Normal (T-score >= -1.0), Osteopenia (T-score between -1 and -2.5), or Osteoporosis (T-score <= -2.5). At [facility], T-scores are compared to peak bone density of a young white gender matched reference population. - For premenopausal women and men under the age of 50, Z-scores(comparison to age, gender, and ethnicity matched reference population) are used:Above expected range for age (Z-score >= 2.0), Within expected range of age (Z-score 1.9 to -1.9), or Below expected range for age (Z-score <= -2.0). - The Bone Health and Osteoporosis Foundation recommends that treatment be considered in men aged more than 50 years and in postmenopausal women with ANY of the following: Prior hip or vertebral fractures; T-score of <= -2.5 at the PA spine or hip; or 10 year fracture probability by FRAX of >= 3%for the hip or >= 20% for major osteoporotic fracture. - The FRAX algorithm (https://www.dewayne.ac.uk/FRAX/tool.aspx) is designed to predict 10-year fracture risk in treatment-naive adultsbetween the ages of 40 and 90. It is not intended to be used in those receiving pharmacologic osteoporosis treatment. - The TBS is derived from the texture of the DXA spine image and has been shown to be related to bone microarchitecture and fracture risk. This data provides information independent of BMD value. It adds to fracture risk assessment with a FRAX adjusted for TBS score. If your patient had a TBSand qualified for a FRAX score, the reported FRAX score has been adjusted for TBS. TBS Score Interpretation 1.350 and greater Normal bone microarchitecture 1.200 to 1.350 Partially degraded bone microarchitecture 1.200 and less Degraded bone microarchitecture - Including race/ethnicity in the generation of T- or Z-scores or in the FRAX calculation is complicated, and currently undergoing active review to ensure that we can give patients the best information on their risk of fracture. - Some prior studies may not be compatible with our comparison software. - Click on View Full Report to see subsequent pages with images andprior bone density results. IMPRESSION: Interpretation: Osteopenia. us Ciro ARRIAGA BD BONE DENSITY DEXA Fin al Result * US ABDOMEN LIMITED RIGHT UPPER QUADRANT (03/19/2025 11:27 AM EDT) Anatomical Region Laterality Modality Abdomen Ultrasound 03/19/2025 12:4 7 PM EDT Impressions 03/19/2025 12:54 PM EDT 1. Limited examination due to bowel gas artifact and rib shadowing. 2. Heterogeneous echotexture of liver suggesting diffuse hepatocellular process. Portions of the liver not well seen due to bowel gas artifact and rib shadowing. No new focal hepatic lesions identified in the visualized portions of the liver. 3. Right renal cyst Narrative 03/19/2025 12:54 PM EDT US ABDOMEN LIMITED RIGHT UPPER QUADRANT Referring clinician's provided indication for this examination in [facility]: Outside Radiology Order; cirrhosis surveillance element TECHNIQUE: US Abdominal limited right upper quadrant. COMPARISON: 07/05/2024 FINDINGS: Limited examination due to some bowel gas artifact. Liver: Portions of the liver are not well seen due to bowel gas artifact and rib shadowing. The visualized portion of the liver demonstrate no new focal hepatic masses. The liver parenchyma appears diffusely heterogeneous. Main Portal Vein: Patent with normal direction of flow. Gallbladder: Normal. No gallstones or gallbladder wall thickening. Laguerre's Sign: Negative. Biliary: Normal. No intrahepatic or extrahepatic biliary ductal dilatation. The common bile duct measures 3 mm. Right Kidney: Right kidney measures 9.4 cm in length. No shadowing stones or hydronephrosis. There is a small 7 mm cyst in the right mid kidney previously 8 mm. Procedure Note Jean Carlos Kelley MD - 03/19/2025 US ABDOMEN LIMITED RIGHT UPPER QUADRANT Referring clinician's provided indication for this examination in Epic:Outside Radiology Order; cirrhosis surveillance element TECHNIQUE: US Abdominal limited right upper quadrant. COMPARISON: 07/05/2024 FINDINGS: Limited examination due to some bowel gas artifact. Liver: Portions of the liver are not well seen due to bowel gas artifactand rib shadowing. The visualized portion of the liver demonstrate no newfocal hepatic masses. The liver parenchyma appears diffuselyheterogeneous. Main Portal Vein: Patent with normal direction of flow. Gallbladder: Normal. No gallstones or gallbladder wall thickening. Laguerre's Sign: Negative. Biliary: Normal. No intrahepatic or extrahepatic biliary ductaldilatation. The common bile duct measures 3 mm. Right Kidney: Right kidney measures 9.4 cm in length. No shadowing stonesor hydronephrosis. There is a small 7 mm cyst in the right mid kidneypreviously 8 mm. IMPRESSION: 1. Limited examination due to bowel gas artifact and rib shadowing. 2. Heterogeneous echotexture of liver suggesting diffuse hepatocellularprocess. Portions of the liver not well seen due to bowel gas artifact andrib shadowing. No new focal hepatic lesions identified in the visualizedportions of the liver. 3. Right renal cyst Abad Mcdermott MD IMG US ABDOMEN Final Result * Hepatitis C antibody, qualitative (07/02/2022 12:05 PM EDT) HCV NON-REACTIV E NON-REACTI VE [facility] Blood 07/02/2022 12:0 5 PM EDT 07/02/2022 12:14 PM EDT Abad Mcdermott MD LAB BLOOD ORDERABLES Final R esult Performing Organization Address City/State/[facility] Co de Phone Number [address] [address] * CT ABDOMEN/PELVIS WITH CONTRAST (04/16/2019 2:38 PM EDT) Anatomical Region Laterality Modality Abdomen, Pelvis Computed Tomogra phy 04/16/2019 2:58 PM EDT Impressions 04/16/2019 3:44 PM EDT 1. Mild RIGHT hydroureteronephrosis and delayed RIGHT renal enhancement. No visible obstructing ureteral calculus. Findings can be seen with pyelonephritis or from a calculus which has recently passed. 2. Splenomegaly, spleen measuring a maximum of 14.1 cm, increased compared with the prior CT. 3. Sequela from chronic pancreatitis: Pancreatic atrophy, numerous pancreatic macrocalcifications and chronically dilated pancreatic duct. No evidence for pancreatic mass. 4. 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 Varices and gastric rugal thickening increased compared with the prior CT. NOTIFICATION: Findings were communicated to ANA ROSA SINGH M.D. on 04/16/2019 at 3:21 PM via the [employer] messaging system. TOTAL CTDIvol: 6.20 mGy POS - [id number] Edited by: Orin Sanchez on 04/16/2019 3:39 PM Narrative 04/16/2019 3:44 PM EDT EXAM: CT ABDOMEN/PELVIS WITH CONTRAST HISTORY: *Abdominal pain, unspecified. Diffuse abd pain, worse in RLQ. TECHNIQUE: CT imaging of the abdomen and pelvis. Helical axial images obtained with reconstructed coronal and sagittal images. IV contrast: 100 mL of Omnipaque 240 contrast. Oral contrast: None. Radiation dose control: Exam performed with automated exposure control or iterative reconstruction to minimize radiation exposure. COMPARISON: 12/01/[address] ABDOMEN/PELVIS FINDINGS: Visualized lower chest: Lung bases are clear. No lung base pleural effusion. The imaged heart is normal in size. Liver: Mildly decreased density of the liver, not as dense as on the prior CT. Minimal macronodular surface in the LEFT hepatic lobe. Spleen: Enlarged measuring a maximum of 14.1 cm. Gallbladder: Normal. No calcified gallstones. No gallbladder wall thickening. Biliary tree: Normal. No biliary ductal dilatation. Pancreas: Diffuse pancreatic atrophy, diffuse pancreatic ductal dilatation and innumerable macrocalcifications, from chronic pancreatitis. No peripancreatic fat stranding or mass. Kidneys/ureters: There is mild RIGHT hydroureteronephrosis. There is no visible obstructing ureteral calculus. There is delayed enhancement of the kidney when compared with the LEFT. There are no intrarenal calculi. Adrenal glands: Normal. No adrenal nodules. Gastrointestinal tract: Extensive rugal gastric fold thickening, with innumerable gastric wall varices. No bowel obstruction. Normal appendix. There is sigmoid colonic diverticulosis. Vasculature: Normal diameter of the abdominal aorta. Minimal arterial calcification. Normal enhancement of the portal veins, SMV and splenic vein. No evidence for venous thrombosis. There are innumerable large upper abdominal varices including large gastric varices, splenic varices and mesenteric varices. The varices have increased in size and number compared with the prior CT. Peritoneum/retroperitoneum: No abdominal or pelvic ascites. There is no free air. Lymph nodes: No retroperitoneal, mesenteric, pelvic sidewall or inguinal adenopathy. Bladder: Mildly distended and within normal limits. Reproductive: Normal prostate gland size. Abdominal and pelvic wall: Very small LEFT inguinal hernia containing fat. Bones: No suspicious lytic or blastic bone lesions. There are multilevel degenerative spondylitic changes. Chronic pars defects at L5 with grade 1 L5 on S1 anterolisthesis. Procedure Note Fern Sylvester MD - 04/16/2019 EXAM: CT ABDOMEN/PELVIS WITH CONTRAST HISTORY: *Abdominal pain, unspecified. Diffuse abd pain, worse in RLQ. TECHNIQUE: CT imaging of the abdomen and pelvis. Helical axial images obtained withreconstructed coronal and sagittal images. IV contrast: 100 mL of Omnipaque 240 contrast. Oral contrast: None. Radiation dose control: Exam performed with automated exposure control oriterative reconstruction to minimize radiation exposure. COMPARISON: 12/01/[address] ABDOMEN/PELVIS FINDINGS: Visualized lower chest: Lung bases are clear. No lung base pleuraleffusion. The imaged heart is normal in size. Liver: Mildly decreased density of the liver, not as dense as on the priorCT. Minimal macronodular surface in the LEFT hepatic lobe. Spleen: Enlarged measuring a maximum of 14.1 cm. Gallbladder: Normal. No calcified gallstones. No gallbladder wallthickening. Biliary tree: Normal. No biliary ductal dilatation. Pancreas: Diffuse pancreatic atrophy, diffuse pancreatic ductal dilatationand innumerable macrocalcifications, from chronic pancreatitis. Noperipancreatic fat stranding or mass. Kidneys/ureters: There is mild RIGHT hydroureteronephrosis. There is novisible obstructing ureteral calculus. There is delayed enhancement of thekidney when compared with the LEFT. There are no intrarenal calculi. Adrenal glands: Normal. No adrenal nodules. Gastrointestinal tract: Extensive rugal gastric fold thickening, withinnumerable gastric wall varices. No bowel obstruction. Normal appendix.There is sigmoid colonic diverticulosis. Vasculature: Normal diameter of the abdominal aorta. Minimal arterialcalcification. Normal enhancement of the portal veins, SMV and splenicvein. No evidence for venous thrombosis. There are innumerable large upperabdominal varices including large gastric varices, splenic varices andmesenteric varices. The varices have increased in size and number comparedwith the prior CT. Peritoneum/retroperitoneum: No abdominal or pelvic ascites. There is nofree air. Lymph nodes: No retroperitoneal, mesenteric, pelvic sidewall or inguinaladenopathy. Bladder: Mildly distended and within normal limits. Reproductive: Normal prostate gland size. Abdominal and pelvic wall: Very small LEFT inguinal hernia containingfat. Bones: No suspicious lytic or blastic bone lesions. There are multileveldegenerative spondylitic changes. Chronic pars defects at L5 with grade 1L5 on S1 anterolisthesis. IMPRESSION: 1. Mild RIGHT hydroureteronephrosis and delayed RIGHT renal enhancement.No visible obstructing ureteral calculus. Findings can be seen withpyelonephritis or from a calculus which has recently passed. 2. Splenomegaly, spleen measuring a maximum of 14.1 cm, increasedcompared with the prior CT. 3. Sequela from chronic pancreatitis: Pancreatic atrophy, numerouspancreatic macrocalcifications and chronically dilated pancreatic duct. Noevidence for pancreatic mass. 4. 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 Varices and gastricrugal thickening increased compared with the prior CT. NOTIFICATION: Findings were communicated to ANA ROSA SINGH M.D. on04/16/2019 at 3:21 PM via the [employer] system. TOTAL CTDIvol: 6.20 mGy POS - [id number] Edited by: Orin Sanchez on 04/16/2019 3:39 PM us Ana Rosa Singh MD, PhD IMG CT ABD/PELVIS F inal Result * Fecal occult blood, multiple (08/09/2017 12:59 PM EST) FECAL OCC BLD 1 DATE 121,117 [facility] Occult bld, stool, #1 Negative Negative [facility] Stool (Stool) 08/09/2017 12: 59 PM EST 08/09/2017 1:31 PM EST us Abad Mcdermott MD BODY FLUIDS AND STOOLS ORDER STARR Final Result [facility] [address] [address] * ENDOSCOPY, COLON (07/28/2017 12:42 PM EST) Narrative Transcriptions Abad Mcdermott MD - 07/28/2017 12:42 PM EST Patient Name: David Emma Attending MD:: ABAD MCDERMOTT MD Procedure Date: 07/28/2017 12:42PM Date of : 1950 Age: 67 Admit Type: Outpatient Gender: Male Room: [place] [address] Referring MD: Unknown Unknown, VICKI MCCORMICK MD Exam Type: Colonoscopy Indications: Iron deficiency anemia Medications: Monitored Anesthesia Care Procedure: Informed consent was obtained from the patient after discussion of the indications, limitations,alternatives, benefits, and risks of the procedure. Risksspecifically discussed include but are not limited to medication reactions, missed lesions, bleeding, perforation, orthe need for emergent surgery. Throughout the procedure, the patient's blood pressure, pulse, end-tidal CO2, and oxygen saturations were monitored continuously. The Olympus adult variable colonoscope CF-PP776L #1 was introduced through the anus and advanced to theterminal ileum. The colonoscopy was performed withoutdifficulty. The patient tolerated the procedure well. The qualityof the bowel preparation was good. Complications: No immediate complications. Estimated blood loss:None. Findings: The perianal and digital rectal examinations werenormal. A few small-mouthed diverticula were found in thesigmoid colon. The rectum, recto-sigmoid colon, sigmoid colon,descending colon, splenic flexure, transverse colon, hepaticflexure, ascending colon, cecum, appendiceal orifice, ileocecal valve, ileum, rectum (on retroflexion) and ascendingcolon (on retroflexion) appeared normal. Biopsies were taken with a cold forceps for histology. Impression: - Diverticulosis in the sigmoid colon. - The rectum, recto-sigmoid colon, sigmoid colon, descending colon, splenic flexure, transverse colon, hepatic flexure, ascending colon, cecum, appendiceal orifice, ileocecal valve and terminal ileum arenormal. - No specimens collected. Recommendation: - Discharge patient to home. - High fiber diet. - Continue present medications. - Await pathology results. - Repeat colonoscopy in 10 years for surveillance. - Return to my office at appointment to be scheduled. ABAD MCDERMOTT MD 07/28/2017 1:10:52 PM This report has been signed electronically. Number of Addenda: 0 Note Initiated On: 07/28/2017 12:42 PM Procedure Code(s): --- Professional --- 45355, Colonoscopy, flexible; with biopsy, single or multiple --- Technical --- 65226, Colonoscopy, flexible; with biopsy, single or multiple Diagnosis Code(s): --- Professional --- D50.9, Iron deficiency anemia, unspecified K57.30, Diverticulosis of large intestine without perforation orabscess without bleeding --- Technical --- D50.9, Iron deficiency anemia, unspecified K57.30, Diverticulosis of large intestine without perforation orabscess without bleeding CPT copyright 2016 [employer]. All rights reserved. The codes documented in this report are preliminary and upon cullet crusher reviewmay be revised to meet current compliance requirements. [address] [place] [address] us Unknown Unknown GI PROCEDURE ORDERABLES Final Result from Last 3 Months or Most Recently Relevant to Health Maintenance Insurance [facility] Member Subscriber Plan / Payer (Ef fective 2015-Present) Name:David Carter Relation to Subscriber:Self Name:David Carter Payer ID:[id number] (NAIC) Group ID:[id number] Type:PPO Address: [address] [place] [address] [facility] Member Subscriber Plan / Payer (Ef fective 2022-Present) Name:Asher Cartershira Curran Relation to Subscriber:Self Name:David Carter Payer ID:[id number] (NAIC) Type:Indemnity Address: [facility] [address] [place] [address] [facility] Member Subscriber Plan / Payer (Ef fective 2015-Present) Name:David Carter Relation to Subscriber:Self Name:Emma David D Payer ID:[id number] (NAIC) Group ID:[id number] Type:PPO Address: [address] [place] [address] [facility] Member Subscriber Plan / Payer (Ef fective 2015-Present) Name:David Carter Relation to Subscriber:Self Name:David Carter Payer ID:[id number] (NAIC) Group ID:[id number] Type:O Address: [address] [place] [address] MEDICARE A [facility] Member Subscriber Plan / Payer ( fective 2015-Present) Name:Emma David Curran Relation to Subscriber:Self Name:David Carter Bina Payer ID:[id number] (NAIC) Group ID:[id number] Type:PPO Address: [id number] [place] [address] MEDICARE A [facility] Member Subscriber Plan / Payer ( fective 2015-) Name:David Carter Relation to Subscriber:Self Name:Asher Cartershira Curran Payer ID:[id number] (NAIC) Group ID:[id number] Type:PPO Address: [address] [place] [address] [facility] Member Subscriber Plan / Payer (Ef fective 2015-Present) Name:Miguel AheavenAsherDavid D Relation to Subscriber:Self Name:David Carter Payer ID:[id number] (NAIC) Group ID:[id number] Type:O Address: [address] [place] [address] MEDICARE A [facility] Member Subscriber Plan / Payer (Ef fective 2015-Present) Name:David Carter Relation to Subscriber:Self Name:David Carter Payer ID:[id number] (NAIC) Group ID:[id number] Type:PPO Address: [address] [place] [address] [facility] Member Subscriber Plan / Payer ( fective 2022-) Name:Asher Cartershira Curran Relation to Subscriber:Self Name:David Carter Payer ID:[id number] (NAIC) Type:Indemnity Address: [facility] [phone] [place] [id number] [facility] Member Subscriber Plan / Payer (Ef fective 2015-Present) Name:David Carter Bina Relation to Subscriber:Self Name:David Carter Payer ID:[id number] (NAIC) Group ID:[id number] Type:PPO Address: [address] [place], [place] [id number] MEDICARE [facility] Member Subscriber Plan / Payer (Ef fective 2015-Present) Name:Asher Cartershira Curran Relation to Subscriber:Self Name:David Carter Payer ID:[id number] (NAIC) Group ID:[id number] Type:[facility] Address: [address] [place] [address] [facility] Care Teams Winery Cellar Hand Relationship Specialty Start Date End Date Sergio Fonseca MD [address] [place] [phone] [email or web address] PCP - General Family Medicine 01/04/23 Vicki Mccormick MD [email or web address] Historical LMR Provider 06/14/17 Geoff Ratliff DO [address] [place] [address] [email or web address] Primary Oncologist Hematology and Oncology 09/16/17 Lindsey Shin FNP [address] [place] [address] [email or web address] Nurse Practitioner Oncology 06/11/21 Additional Source Comments The information contained in this document represents components of the legal health record. It is not the complete legal health record.[facility]
--- OUTSIDE RECORDS SUMMARY | 2025-06-19 15:05 | XMS_ITS | Encounter Summary ---
Author Organization [facility] Address [address] [place] [address] Phone Care Team Providers Care Herpetology Teacher Name Role Phone Dung Mccormick MD Unavailable Dung Mccormick MD Primary Care Provider [phone] Geoff Ratliff DO Unavailable Lindsey Shin INSTRUCTOR WEAVING Unavailable [phone] Sergio Fonseca MD Primary Care Provider [phone] Encounter Details Date Type Department Care Team (Latest Contact Info) Description 07/02/2022 Transcribe Orders Virtual Department [address] [place] [address] Abad Xiao MD [address] [place] [phone] [email or web address] Alcoholic cirrhosis, unspecified whether ascites present (Primary Dx); Chronic pancreatitis, unspecified pancreatitis type Social History Tobacco Use Types Packs/Day Years [...] and Critical Care Medicine [address] [place] [address] Moose No MD [address] [place] [address] documented as of this encounter Results * US ABDOMEN LIMITED RIGHT UPPER QUADRANT (07/14/2022 10:46 AM EST) Anatomical Region Laterality Modality Abdomen Ultrasound 07/14/2022 10:5 4 AM EST Impressions 07/14/2022 10:55 AM EST No focal liver lesions. Narrative 07/14/2022 10:55 AM EST US ABDOMEN LIMITED RIGHT UPPER QUADRANT TECHNIQUE: US Abdominal limited right upper quadrant. COMPARISON: 01/31/2022 FINDINGS: Liver: Cirrhotic morphology. No focal lesions. Main Portal Vein: Patent with normal direction of flow. Gallbladder: Normal. No gallstones or gallbladder wall thickening. Biliary: Normal. No intrahepatic or extrahepatic biliary ductal dilatation. The common bile duct measures 5 mm. Procedure Note Kings Conner MD, OMAR - 07/14/2022 US ABDOMEN LIMITED RIGHT UPPER QUADRANT TECHNIQUE: US Abdominal limited right upper quadrant. COMPARISON: 01/31/2022 FINDINGS: Liver: Cirrhotic morphology. No focal lesions. Main Portal Vein: Patent with normal direction of flow. Gallbladder: Normal. No gallstones or gallbladder wall thickening. Biliary: Normal. No intrahepatic or extrahepatic biliary ductaldilatation. The common bile duct measures 5 mm. IMPRESSION: No focal liver lesions. Abad Xiao MD IMG US ABDOMEN Final Result documented in this encounter Visit Diagnoses Diagnosis Alcoholic cirrhosis, unspecified whether ascites present- Primary Chronic pancreatitis, unspecified pancreatitis type Alcoholic cirrhosis, unspecified whether ascites present Chronic pancreatitis, unspecified pancreatitis type documented in this encounter Care Teams Herpetology Teacher Relationship Specialty Start Date End Date Dung Mccormick MD [email or web address] PCP - General Family Medicine 07/21/17 01/03/23 Sergio Fonseca MD [address] [place] [phone] [email or web address] PCP - General Family Medicine 01/04/23 Dung Mccormick MD [email or web address] Historical LMR Provider 06/14/17 Geoff Ratliff DO [address] [place] [address] [email or web address] Primary Oncologist Hematology and Oncology 09/16/17 Lindsey Shin FNP [address] [place] [address] [email or web address] Nurse Practitioner Oncology 06/11/21 documented as of this encounter Additional Source Comments The information contained in this document represents components of the legal health record. It is not the complete legal health record.[facility]
--- OUTSIDE RECORDS SUMMARY | 2025-06-19 15:05 | XMS_ITS | Encounter Summary ---
Author Organization [facility] Address [address] [place] [address] Phone Care Team Providers Care Paper Control Clerk Name Role Phone Dung Mccormick MD Unavailable Sol Flores MD Unavailable [phone] Joe Mcpherson MEDICAL SOCIAL CONSULTANT Unavailable [phone] Dung Mccormick MD Primary Care Provider [phone] Geoff Ratliff DO Unavailable [phone] Lindsey Shin CONTINUOUS IMPROVEMENT COACH Unavailable [phone] Sergio Fonseca MD Primary Care Provider Encounter Details Date Type Department Care Team (Late st Contact Info) Description 09/23/2018 Ancillary Orders Virtual Department [address] [place] [address] Abad Xiao MD [address] [place] [phone] [email or web address] Hepatic cirrhosis, unspecified hepatic cirrhosis type, unspecified whether ascites present Social History Tobacco Use Types Packs/Day Years [...] Description 07/16/2025 1:00 PM EST Office Visit CD Pulmonary, Allergy and Critical Care Medicine [address] [place] [address] Moose No MD [address] [place] [address] documented as of this encounter Results * US ABDOMEN LIMITED RIGHT UPPER QUADRANT (11/01/2018 11:50 AM EST) Anatomical Region Laterality Modality Abdomen Ultrasound 11/01/2018 5:33 PM EST Impressions 11/01/2018 5:39 PM EST Decreasing hepatic steatosis. No mass detected. Stable mild splenomegaly. Chronic pancreatic ductal dilatation in a severely atrophic pancreas with chronic calcifications as seen on the CT. POS [id number] Narrative 11/01/2018 5:39 PM EST COMPARISON: 10/22/2017, 12/01/2016 CT abdomen FINDINGS: Liver: Degree of steatosis is less. No focal lesion detected. Gallbladder/Biliary Tree: Gallbladder lumen appears clear without wall thickening or pericholecystic fluid. No intra or extrahepatic biliary ductal dilatation.The common bile duct measures 0.2 cm. Pancreas: Pancreas is known to be atrophic with extensive calcifications from chronic pancreatitis. Partially imaged dilated duct in the body measures up to 0.8 cm, not significantly changed since prior exams. Right kidney: No hydronephrosis on limited imaging. Spleen: Stable splenomegaly measuring 14 cm in craniocaudad extent and stable bulbous appearance. No focal splenic abnormality. Upper abdominal aorta/IVC: No abnormality within the visualized IVC and visualized mid and distal aorta. Hepatopedal flow observed within the main portal vein. Procedure Note Nena Mendoza MD - 11/01/2018 COMPARISON: 10/22/2017, 12/01/2016 CT abdomen FINDINGS: Liver: Degree of steatosis is less. No focal lesion detected. Gallbladder/Biliary Tree: Gallbladder lumen appears clear without wallthickening or pericholecystic fluid. No intra or extrahepatic biliaryductal dilatation.The common bile duct measures 0.2 cm. Pancreas: Pancreas is known to be atrophic with extensive calcificationsfrom chronic pancreatitis. Partially imaged dilated duct in the bodymeasures up to 0.8 cm, not significantly changed since prior exams. Right kidney: No hydronephrosis on limited imaging. Spleen: Stable splenomegaly measuring 14 cm in craniocaudad extent andstable bulbous appearance. No focal splenic abnormality. Upper abdominal aorta/IVC: No abnormality within the visualized IVC andvisualized mid and distal aorta. Hepatopedal flow observed within themain portal vein. IMPRESSION: Decreasing hepatic steatosis. No mass detected. Stable mild splenomegaly. Chronic pancreatic ductal dilatation in a severely atrophic pancreas withchronic calcifications as seen on the CT. POS [id number] Abad Xiao MD IM US ABDOMEN Final Result documented in this encounter Visit Diagnoses Diagnosis Hepatic cirrhosis, unspecified hepatic cirrhosis type, unspecified whether ascites present Hepatic cirrhosis, unspecified hepatic cirrhosis type, unspecified whether ascites present documented in this encounter Care Teams Paper Control Clerk Relationship Specialty Start Date End Date Dung Mccormick MD [email or web address] PCP - General Family Medicine 07/21/17 01/03/23 Sergio Fonseca MD [address] [place] [phone] [email or web address] - General [email or web address] 01/04/23 Dung Mccormick MD Historical LMR Provider 06/14/17 Sol Flores MD [address] [place] [address], [address] [place] [address] [email or web address] Historical LMR Provider 06/14/17 Joe Mcpherson MEDICAL SOCIAL CONSULTANT [address] [place] [address], [address] [place] [address] Historical LMR Provider 06/14/17 09/06/21 Geoff Ratliff DO [address] [place] [phone] [email or web address] Primary Oncologist Hematology and Oncology 09/16/17 Lindsey Shin FNP [address] [place] [address] [email or web address] Nurse Practitioner Oncology 06/11/21 documented as of this encounter Additional Source Comments The information contained in this document represents components of the legal health record. It is not the complete legal health record.[facility]
--- OUTSIDE RECORDS SUMMARY | 2025-06-19 15:06 | XMS_ITS | Encounter Summary ---
Author Organization [facility] Address [address] [place] [address] Phone Care Team Providers Care Supply And Distribution Manager Name Role Phone Dung Mccormick MD Unavailable Geoff Ratliff DO Unavailable Lindsey Shni SEA CAPTAIN Unavailable Sergio Fonseca MD Primary Care Provider Encounter Details Date Type Department Care Team (Latest Contact Info) Description 03/13/2024 Transcribe Orders Virtual Department [address] [place], [place] [phone] Abad Xiao MD [address] [place] [phone] [email or web address] Hepatic cirrhosis, unspecified hepatic cirrhosis type, unspecified whether ascites present (Primary Dx) Social History Tobacco Use Types Packs/Day Years Used Date Smoking Tobacco: Former Cigarettes Q uit: 07/20/1997 Smokeless Tobacco: Never Alcohol Use Standard Drinks/Week Comments No 0 (1 standard drink = 0.6 oz pur e alcohol) Education Answer Date Recorded Are you interested in more education? Not on lesley e 12/25/2022 Are you concerned about learning? Not on file 12/25/2022 No 12/25/2022 No 12/25/2022 Digital Access Answer Date Recorded No 01/25/2023 No 01/25/2023 Reliable internet access at home? Not on file 01/25/2023 Device with a working camera? Not on file Sex and Gender Information Value Date Recorded [...] and Critical Care Medicine [address] [place] [address] Moose No MD [address] [place] [address] documented as of this encounter Results * US ABDOMEN LIMITED RIGHT UPPER QUADRANT (07/05/2024 9:54 AM EST) Anatomical Region Laterality Modality Abdomen Ultrasound 07/05/2024 12:1 2 PM EST Impressions 07/05/2024 12:14 PM EST Heterogeneous appearance of the hepatic parenchyma. No focal hepatic lesion demonstrated sonographically. Narrative 07/05/2024 12:14 PM EST US ABDOMEN LIMITED RIGHT UPPER QUADRANT Referring clinician's provided indication for this examination in Epic: Outside Radiology Order; cirrhosis TECHNIQUE: US Abdominal limited right upper quadrant. COMPARISON: US ABDOMEN LIMITED RIGHT UPPER QUADRANT ; US ABDOMEN LIMITED RIGHT UPPER QUADRANT FINDINGS: Evaluation limited by overlying bowel gas. Liver: Diffusely heterogeneous appearance of the hepatic parenchyma. No focal hepatic lesion demonstrated sonographically Main Portal Vein: Patent with normal direction of flow. Gallbladder: No gallstones or gallbladder wall thickening. Laguerre's Sign: Negative. Biliary: No intrahepatic or extrahepatic biliary ductal dilatation. The common bile duct measures 3 mm. Right Kidney: No stones or hydronephrosis. There is a 8mm exophytic simple appearing cyst at the right mid kidney, similar Procedure Note Latonya Rahman MD - 07/05/2024 US ABDOMEN LIMITED RIGHT UPPER QUADRANT Referring clinician's provided indication for this examination in Epic:Outside Radiology Order; cirrhosis TECHNIQUE: US Abdominal limited right upper quadrant. COMPARISON: US ABDOMEN LIMITED RIGHT UPPER QUADRANT ; USABDOMEN LIMITED RIGHT UPPER QUADRANT FINDINGS: Evaluation limited by overlying bowel gas. Liver: Diffusely heterogeneous appearance of the hepatic parenchyma. Nofocal hepatic lesion demonstrated sonographically Main Portal Vein: Patent with normal direction of flow. Gallbladder: No gallstones or gallbladder wall thickening. Laguerre's Sign: Negative. Biliary: No intrahepatic or extrahepatic biliary ductal dilatation. The common bile duct measures 3 mm. Right Kidney: No stones or hydronephrosis. There is a 8mm exophytic simpleappearing cyst at the right mid kidney, similar IMPRESSION: Heterogeneous appearance of the hepatic parenchyma. No focal hepaticlesion demonstrated sonographically. us Abad Xiao MD IMG US ABDOMEN Final Result documented in this encounter Visit Diagnoses Diagnosis Hepatic cirrhosis, unspecified hepatic cirrhosis type, unspecified whether ascites present- Primary Hepatic cirrhosis, unspecified hepatic cirrhosis type, unspecified whether ascites present documented in this encounter Care Teams Supply And Distribution Manager Relationship Specialty Start Date End Date Sergio Fonseca MD [address] [place] [phone] [email or web address] PCP - General Family Medicine 01/04/23 Dung Mccormick MD [email or web address] Historical LMR Provider 06/14/17 Geoff Ratliff DO [address] [place] [address] [email or web address] Primary Oncologist Hematology and Oncology 09/16/17 Lindsey Shin FNP [address] [place] [address] (work) [email or web address] Nurse Practitioner Oncology 06/11/21 documented as of this encounter Additional Source Comments The information contained in this document represents components of the legal health record. It is not the complete legal health record.[facility]
--- OUTSIDE RECORDS SUMMARY | 2025-06-19 15:06 | XMS_ITS | Encounter Summary ---
Author Organization [facility] Address [address] [place] [address] Phone Care Team Providers Care Zoning Engineer Name Role Phone Dung Mccormick MD Unavailable Geoff Ratliff DO Unavailable [phone] Lindsey Shin PRINT INSPECTOR Unavailable [phone] Sergio Fonseca MD Primary Care Provider Reason for Referral * MRI/CAT Scan - Closed Specialty Diagnoses / Procedures Referred By Contac t Referred To Contact Radiology Diagnoses Interstitial pulmonary disease, unspecified Procedures CT Chest Srini Adams PA [address] [place] [address] Phone: tel: fax: Referral ID Status Reason Start Date Expiration Date Visits Re quested Visits Authorized [id number] Closed 12/11/2024 12/11/2025 1 1 Encounter Details Date Type Department Care Team (Latest Contact Info) Description 12/11/2024 Transcribe Orders Virtual Department [address] [place] [address] Srini Adams PA [address] [place] [address] Interstitial pulmonary disease, unspecified (Primary Dx) Social History Tobacco Use Types [...] Upcoming Encounters Date Type Department Care Team ([facility] st Contact Info) Description 07/16/2025 1:00 PM EST Office Visit [facility] Pulmonary, Allergy and Critical Care Medicine 10 [facility] [place] [address] Moose No MD [address] [place] [address] documented as of this encounter Results * CT CHEST (HIGH RESOLUTION) WITHOUT CONTRAST (12/18/2024 5:50 PM EDT) Anatomical Region Laterality Modality Chest Computed Tomogra phy 12/19/2024 2:29 PM EDT Impressions 12/19/2024 2:59 PM EDT Fibrotic interstitial lung disease. Given the pattern of distribution, may be related to an autoimmune or connective tissue disease (CTD-ILD), and should be correlated with clinical features and laboratory tests. Differential includes fibrotic NSIP and chronic hypersensitivity pneumonitis. Narrative 12/19/2024 2:[address] CHEST (HIGH RESOLUTION) WITHOUT CONTRAST Referring clinician's provided indication for this examination in Epic: Outside Radiology Order; ILD TECHNIQUE: Multidetector CT of the chest was performed without intravenous contrast using tailored dose modulation techniques. Thin inspiratory, expiratory and inspiratory prone images were obtained as part of a high-resolution chest CT protocol. COMPARISON: CT ABDOMEN/PELVIS WITH CONTRAST FINDINGS: Devices/Tubes/Lines: None. Lungs: Subpleural and peribronchovascular reticulation, faint groundglass, traction bronchiectasis and likely focal areas of honeycombing notably involving the anterolateral upper lobes and posterior superior segment of lower lobes. No significant air trapping. Pleura: No pleural effusion or pneumothorax. Mediastinum: The thyroid gland is atrophic or absent. Heart and pericardium are normal. Mild amount of coronary calcifications. Lymph Nodes: No enlarged supraclavicular, axillary, mediastinal, or hilar lymph nodes. Upper Abdomen: Similar multifocal calcifications in the atrophic pancreas, likely cystic, chronic pancreatitis. Absence of intravenous contrast limits sensitivity for detecting solid organ findings. Chest Wall: Normal. No chest wall mass. Bones: Normal. No suspicious lytic or blastic lesions. Procedure Note Juliet Jacobsen MD - 12/19/2024 CT CHEST (HIGH RESOLUTION) WITHOUT CONTRAST Referring clinician's provided indication for this examination in Epic:Outside Radiology Order; ILD TECHNIQUE: Multidetector CT of the chest was performed without intravenouscontrast using tailored dose modulation techniques. Thin inspiratory,expiratory and inspiratory prone images were obtained as part of ahigh-resolution chest CT protocol. COMPARISON: CT ABDOMEN/PELVIS WITH CONTRAST FINDINGS: Devices/Tubes/Lines: None. Lungs: Subpleural and peribronchovascular reticulation, faint groundglass,traction bronchiectasis and likely focal areas of honeycombing notablyinvolving the anterolateral upper lobes and posterior superior segment oflower lobes. No significant air trapping. Pleura: No pleural effusion or pneumothorax. Mediastinum: The thyroid gland is atrophic or absent. Heart andpericardium are normal. Mild amount of coronary calcifications. Lymph Nodes: No enlarged supraclavicular, axillary, mediastinal, or hilarlymph nodes. Upper Abdomen: Similar multifocal calcifications in the atrophic pancreas,likely cystic, chronic pancreatitis. Absence of intravenous contrastlimits sensitivity for detecting solid organ findings. Chest Wall: Normal. No chest wall mass. Bones: Normal. No suspicious lytic or blastic lesions. IMPRESSION: Fibrotic interstitial lung disease. Given the pattern of distribution, maybe related to an autoimmune or connective tissue disease (CTD-ILD), andshould be correlated with clinical features and laboratory tests.Differential includes fibrotic NSIP and chronic hypersensitivitypneumonitis. Srini MUNOZ IMG CT CHEST Final Re sult documented in this encounter Visit Diagnoses Diagnosis Interstitial pulmonary disease, unspecified- Primary Interstitial pulmonary disease, unspecified documented in this encounter Care Teams Zoning Engineer Relationship Specialty Start Date End Date Sergio Fonseca MD [address] [place] [phone] [email or web address] PCP - General Family Medicine 01/04/23 Dung Mccormick MD [email or web address] Historical LMR Provider 06/14/17 Geoff Ratliff DO [address] [place] [address] [email or web address] Primary Oncologist Hematology and Oncology 09/16/17 Lindsey Shin FNP [address] [place] [address] [email or web address] Nurse Practitioner Oncology 06/11/21 documented as of this encounter Additional Source Comments The information contained in this document represents components of the legal health record. It is not the complete legal health record.[facility]
--- OUTSIDE RECORDS SUMMARY | 2025-06-19 15:06 | XMS_ITS | Encounter Summary ---
Author Organization [facility] Address [address] [address] Phone Care Team Providers Care General Store Manager Name Role Phone Dung Mccormick MD Unavailable Geoff Ratliff DO Unavailable Lindsey Shin HORSE TREKKING GUIDE Unavailable [phone] Sergio Fonseca MD Primary Care Provider Encounter Details Date Type Department Care Team (Latest Contact Info) Description 12/01/2024 Transcribe Orders Virtual Department 30 [place] [address] Ciro Brown MD [address] [place] [address] [email or web address] Hyperparathyroidism, unspecified (Primary Dx) Social History Tobacco Use [...] Pulmonary, Allergy and Critical Care Medicine 10 [place] [address] Moose No MD [address] [place] [address] documented as of this encounter Results * BD DXA SPINE AND HIP WITH FOREARM (04/09/2025 5:11 PM EDT) Anatomical Region Laterality Modality Bone Density Bone Density 04/09/2025 5:08 PM EDT Impressions 04/10/2025 5:13 PM EDT Interpretation: Osteopenia. Narrative 04/10/2025 5:13 PM EDT Referred By: CIRO BROWN Indications: Primary Hyperparathyroidism Scanner: [employer] with serial# of [id number] located at [facility] Bone Density Scan (DXA) 04/09/25 Details [...] -2.5), or Osteoporosis (T-score <= -2.5). At [facility], T-scores are compared to peak bone density [...] By: CIRO BROWN Indications: Primary Hyperparathyroidism Scanner: [employer] A with serial# of [id number] located at [facility] Bone Density Scan (DXA) 04/09/25 Details [...] -2.5), or Osteoporosis (T-score <= -2.5). At [facility], T-scores are compared to peak bone density [...] andprior bone density results. IMPRESSION: Interpretation: Osteopenia. Ciro Brown MD IM BD BONE DENSITY DEXA Fin al Result documented in this encounter Visit Diagnoses Diagnosis Hyperparathyroidism, unspecified- Primary Hyperparathyroidism, unspecified documented in this encounter Care Teams General Store Manager Relationship Specialty Start Date End Date Sergio Fonseca MD [address] [place] [phone] [email or web address] PCP - General Family Medicine 01/04/23 Dung Mccormick MD [email or web address] Historical LMR Provider 06/14/17 Geoff Ratliff DO [address] [place] [address] [email or web address] Primary Oncologist Hematology and Oncology 09/16/17 Lindsey Shin FNP [address] [place] [address] [email or web address] Nurse Practitioner Oncology 06/11/21 documented as of this encounter Additional Source Comments The information contained in this document represents components of the legal health record. It is not the complete legal health record.[facility]
--- OUTSIDE RECORDS SUMMARY | 2025-06-19 15:06 | XMS_ITS | Encounter Summary ---
Author Organization [facility] Address [facility] [employer] [facility] [address] [place] [address] Phone Care Team Providers Care Triple Valve Mechanic Name Role Phone Dung Mccormick MD Unavailable Geoff Ratliff DO Unavailable Lindsey Shin FAMILY PSYCHOLOGIST Unavailable [phone] Sergio Fonseca MD Primary Care Provider [phone] Encounter Details Date Type Department Care Team (Late st Contact Info) Description 04/27/2025 Procedure Pass [facility], Ct Scan - [address] [address] Social History Tobacco Use Types Packs/Day Years [...] got money to buy more. Never True 04/27/2025 Within the past 6 months the food we bought just didn't last and we didn't have enough money to get more. Never True Residential Stability Answer Date Recor ded What is your housing situation today? I have marty stephens 04/27/2025 How many times have you move d in the past 12 months? Zero (I did not move) 04/27/2025 Paying for Meds Answer Date Recorded Do you have trouble paying for medicines? No 04/27/2025 Paying Utility Bills Answer Date Record ed Do you have trouble paying your heating or elect ricity bill? No 04/27/2025 Transportation Answer Date Recorded Has the lack of transportati on kept you from medical appointments or from getting medications? No 04/27/2025 Digital Access Answer Date Recorded No 04/27/2025 Yes 04/27/2025 Do you have reliable internet access at home? Ye s 04/27/2025 Do you have a device (e.g., phone, tablet, computer) with a working camera? Yes 04/27/2025 Intimate Partner Violence Answer Date R ecorded [...] on file documented as of this encounter Functional Status * Calculated C-SSRS Risk Score (Lifetime/Recent) Answer Date of Assessment Author No Risk Indicated 04/27/2025 1:12 PM EDT Lyudmila Hayes RN * [place] Suicide Severity Rating Scale (Screener/Recent Self-Report) Question Answer Date of Assessment Author 1. Wish to be (Past 1 Month) No 025 1:12 PM EDT Lydia Hayes, JUAN M 2. Non-Specific Active Suici alena Thoughts (Past 1 Month) No 04/27/2025 1:12 PM EDT Lydia Hayes JUAN M 6. Suicidal Behavior (Lifetime) No 1:12 PM EDT Lydia Hayes RN documented as of this encounter Plan of Treatment Upcoming Encounters Date Type Department Care Team (Late st Contact Info) Description 07/16/2025 1:00 PM EST Office Visit [facility] Pulmonary, Allergy and Critical Care Medicine 10 [place] [address] Moose No MD [address] [place] [address] [email or web address] documented as of this encounter Visit Diagnoses Not on filedocumented in this encounter Care Teams Triple Valve Mechanic Relationship Specialty Start Date End Date Sergio Fonseca MD [address] [place] [address] [email or web address] PCP - General Family Medicine 01/04/23 Dung Mccormick MD [email or web address] Historical LMR Provider 06/14/17 Geoff Ratliff DO [address] [place] [address] [email or web address] Primary Oncologist Hematology and Oncology 09/16/17 Lindsey Shin FNP [address] [place] [address] [email or web address] Nurse Practitioner Oncology 06/11/21 documented as of this encounter Additional Source Comments The information contained in this document represents components of the legal health record. It is not the complete legal health record.[facility]
--- OUTSIDE RECORDS SUMMARY | 2025-06-19 15:06 | XMS_ITS | Encounter Summary ---
Author Organization [facility] Address [address] [place] [address] Phone Care Team Providers Care Play Therapist Name Role Phone Dung Mccormick MD Unavailable Geoff Ratliff DO Unavailable Lindsey Shin TAR POT MAN Unavailable Sergio Fonseca MD Primary Care Provider Encounter Details Date Type Department Care Team (Latest Contact Info) Description 03/08/2025 Transcribe Orders [facility] [address] Floor [place], [place] [id number] Abad Xiao MD [address] [facility] 2 [place], [place] [id number] [email or web address] Hepatic cirrhosis, unspecified hepatic cirrhosis type, unspecified whether ascites present (Primary Dx); Diarrhea, unspecified type Social History Tobacco Use Types Packs/Day [...] Pulmonary, Allergy and Critical Care Medicine 10 [place] [address] Moose No MD [address] [place] [address] [email or web address] Scheduled Orders Name Type Priority Associated Diagnoses Orde r Schedule AFP (non-maternal specimens) Lab Routine Hepatic cirrhosis, unspecified hepatic cirrhosis type, unspecified whether ascites present Diarrhea, unspecified type Other for 3 Occurrences starting 03/08/2025 until 03/08/2026, 1 completed CBC Lab Routine Hepatic cirrhosis, unspecified hepatic cirrhosis type, unspecified whether ascites present Diarrhea, unspecified type Every 6 months for 3 Occurrences starting 03/08/2025 until 03/08/2026, 1 completed Comprehensive metabolic panel Lab Routine Hepatic cirrhosis, unspecified hepatic cirrhosis type, unspecified whether ascites present Diarrhea, unspecified type Every 6 months for 3 Occurrences starting 03/08/2025 until 03/08/2026, 1 completed documented as of this encounter Results * (ABNORMAL) Comprehensive metabolic panel (03/08/2025 12:04 PM EDT) SODIUM 142 133 - 146 mmol/L [facility] POTASSIUM 4.5 3.3 - 5.1 mmol/L [facility] CHLORIDE 107 96 - 108 mmol/L [facility] CO2 27 21 - 35 mmol/L [facility] BUN 16 6 - 19 mg/dL [facility] CREATININE 1.30 0.5 - 1.5 mg/dL [facility] GLUCOSE 71 70 - 99 mg/dL [facility] ALBUMIN 4.2 3.9 - 4.8 g/dL [facility] TOTAL PROTEIN 7.6 6.5 - 8.0 g/dL [facility] CALCIUM 9.5 8.4 - 10.3 mg/dL [facility] ALKALINE PHOSPHATASE 192(H) 39 - 117 U/L [facility] TOTAL BILIRUBIN 0.4 0.0 - 1.2 mg/dL [facility] AST 22 0 - 37 U/L [facility] ALT 21 0 - 40 U/L [facility] GLOBULIN 3.4 1 - 4.8 g/dL [facility] EGFR 58(L) >59 mL/min/1.7 3m2 [facility] Comment:Estimated glomerular filtration rate calculated using the CKD-EPI refit equation. ANION GAP 13 10 - 20 mmol/L [facility] Blood 03/08/2025 12:0 4 PM EDT 03/08/2025 12:05 PM EDT us Abad Xiao MD LAB BLOOD ORDERABLES Final R esult Performing Organization Address City/State/[facility] Co de Phone Number [facility] [address] [place] [address] * (ABNORMAL) CBC (03/08/2025 12:04 PM EDT) WBC 5.77 4.00 - 11.00 K/uL [facility] RBC 4.50 4.50 - 5.90 M/uL [facility] HGB 12.9(L) 13.5 - 17.5 g/dL [facility] HCT 40.5(L) 41.0 - 53.0 % [facility] PLT 143(L) 150 - 450 K/uL [facility] MCV 90.0 80.0 - 100.0 fL [facility] MCH 28.7 27.0 - 31.0 pg [facility] MCHC 31.9(L) 32.0 - 36.0 g/dL [facility] RDW 15.4(H) 11.5 - 14.5 % [facility] MPV 10.0 8.4 - 12.0 fL [facility] NRBC 0.00 0.00 /100 WBCs [facility] ABSOLUTE NRBC 0.00 0.00 K/uL [facility] Blood 03/08/2025 12:0 4 PM EDT 03/08/2025 12:05 PM EDT us Abad Xiao MD LAB BLOOD ORDERABLES Final R esult Performing Organization Address [facility]/ZIP Co de Phone Number [address] [address] * AFP (non-maternal specimens) (03/08/2025 12:04 PM EDT) AFP (NON-MATERNAL) 2.7 <7.9 ng/mL [facility] Comment: Test Methodology Jori [id number] Patient results determined by assays using different manufacturers or methods may not be comparable. Blood 03/08/2025 12:0 4 PM EDT 03/08/2025 12:05 PM EDT us Abad Xiao MD LAB BLOOD ORDERABLES Final R esult Performing Organization Address [facility] Co de Phone Number [address] [address] documented in this encounter Visit Diagnoses Diagnosis Hepatic cirrhosis, unspecified hepatic cirrhosis type, unspecified whether ascites present- Primary Diarrhea, unspecified type documented in this encounter Care Teams Play Therapist Relationship Specialty Start Date End Date Sergio Fonseca MD [address] [place] [phone] [email or web address] - General Family Medicine 01/04/23 Dung Mccormick MD [email or web address] Historical LMR Provider 06/14/17 Geoff Ratliff DO [address] [place] [address] [email or web address] Primary Oncologist Hematology and Oncology 09/16/17 Lindsey Shin FNP [address] [place] [address] [email or web address] Nurse Practitioner Oncology 06/11/21 documented as of this encounter Additional Source Comments The information contained in this document represents components of the legal health record. It is not the complete legal health record.[facility]
--- OUTSIDE RECORDS SUMMARY | 2025-06-19 15:06 | XMS_ITS | Encounter Summary ---
Author Organization [facility] Address [address] [place] [address] Phone Care Team Providers Care Car Whacker Name Role Phone Dung Mccormick MD Unavailable Sol Flores MD Unavailable [phone] Joe Mcpherson BARREL TESTER AND DRAINER Unavailable [phone] Dung Mccormick MD Primary Care Provider [phone] Geoff Ratliff DO Unavailable Lindsey Shin HUMIDIFIER OPERATOR Unavailable [phone] Sergio Fonseca MD Primary Care Provider [phone] Encounter Details Date Type Department Care Team (Latest Contact Info) Description 04/29/2018 Transcribe Orders [facility] 30 [place] [address] Geoff Ratliff DO 30 [place] [address] [email or web address] Screening for condition (Primary Dx) Social History Tobacco Use Types [...] Pulmonary, Allergy and Critical Care Medicine 10 [place] [address] Moose No MD [address] [place] [address] [email or web address] documented as of this encounter Results * Chemistry Hold (04/29/2018 11:35 AM EDT) Blood 04/29/2018 11:3 5 AM EDT 04/29/2018 11:42 AM EDT us Tellez W Gaudencio DO LAB BLOOD ORDERABLES Final Result Performing Organization Address City/State/[facility] Co de Phone Number [email or web address] documented in this encounter Visit Diagnoses Diagnosis Screening for condition- Primary Screening for unspecified condition documented in this encounter Care Teams Car Whacker Relationship Specialty Start Date End Date Dung Mccormick MD PCP - General Family Medicine 07/21/17 01/03/23 Sergio Fonseca MD 70 [place] [address] [email or web address] - General Family Medicine 01/04/23 Dugn Mccormick MD Historical LMR Provider 06/14/17 Sol Flores MD 15 [facility], 2nd [place] [address] [email or web address] Historical LMR Provider 06/14/17 Joe Mcpherson BARREL TESTER AND DRAINER [address] [place] [address], [address] [place] [address] [email or web address] Historical LMR Provider 06/14/17 09/06/21 Geoff Ratliff DO [address] [place] [address] [email or web address] Primary Oncologist Hematology and Oncology 09/16/17 Lindsey Shin FNP [address] [place] [address] [email or web address] Nurse Practitioner Oncology 06/11/21 documented as of this encounter Additional Source Comments The information contained in this document represents components of the legal health record. It is not the complete legal health record.[facility]
--- OUTSIDE RECORDS SUMMARY | 2025-06-19 15:06 | XMS_ITS | Encounter Summary ---
Author Organization [facility] Address [address] [place] [address] Phone Care Team Providers Care Income Tax Advisor Name Role Phone Dung Mccormick MD Unavailable Sol Flores MD Unavailable [phone] Joe Mcpherson RETURN AGENT Unavailable [phone] Dung Mccormick MD Primary Care Provider [phone] GaudencioGeoff garcia Delroy DO Unavailable Lindsey Shin ASPHALT PAVER Unavailable [phone] Sergio Fonseca MD Primary Care Provider [phone] Encounter Details Date Type Department Care Team (Latest Contact Info) Description 02/03/2018 Transcribe Orders [facility] [address] [place] [address] Abad Xiao MD [address] [place] [address] Elevated alkaline phosphatase level (Primary Dx) Social History Tobacco Use Types [...] Pulmonary, Allergy and Critical Care Medicine 10 [facility] [place] [address] Moose No MD 30 [place] [address] [email or web address] documented as of this encounter Results * (ABNORMAL) 25-OH vitamin D (02/03/2018 10:57 AM EDT) 25 OH VIT D (TOTAL) 25(L) 30 - 1,000 ng/mL [facility] Blood 02/03/2018 10:5 7 AM EDT 02/03/2018 11:47 AM EDT us Abad Xiao MD LAB BLOOD ORDERABLES Final R esult [address] [address] documented in this encounter Visit Diagnoses Diagnosis Elevated alkaline phosphatase level- Primary documented in this encounter Care Teams Income Tax Advisor Relationship Specialty Start Date End Date Dung Mccormick MD PCP - General Family Medicine 07/21/17 01/03/23 Sergio Fonseca MD [address] [place] [address] [email or web address] - General Family Medicine 01/04/23 Dung Mccormick MD Historical LMR Provider 06/14/17 Sol Flores MD [address] [address] [email or web address] Historical LMR Provider 06/14/17 Joe Mcpherson CNP [address] [place] [address] [email or web address] Historical LMR Provider 06/14/17 09/06/21 Geoff Ratliff DO [address] [place] [address] [email or web address] Primary Oncologist Hematology and Oncology 09/16/17 Lindsey Shin FNP [address] [place] [address] [email or web address] Nurse Practitioner Oncology 06/11/21 documented as of this encounter Additional Source Comments The information contained in this document represents components of the legal health record. It is not the complete legal health record.[facility]
--- OUTSIDE RECORDS SUMMARY | 2025-06-19 15:06 | XMS_ITS | Encounter Summary ---
Author Organization [facility] Address [address] [place] [address] [place] [address] Phone Care Team Providers Care Voltage Inspector Name Role Phone Dung Mccormick MD Unavailable Geoff Ratliff DO Unavailable Lindsey Shin UTILITY OPERATOR Unavailable [phone] Sergio Fonseca MD Primary Care Provider Encounter Details Date Type Department Care Team (Late st Contact Info) Description 04/12/2025 Procedure Pass [facility] [place], Ct Scan - [address] [address] Social History Tobacco Use Types Packs/Day Years [...] Critical Care Medicine [address] [place] [address] Moose No MD 30 [place] [address] [email or web address] documented as of this encounter Visit Diagnoses Not on filedocumented in this encounter Care Teams Voltage Inspector Relationship Specialty Start Date End Date Sergio Fonseca MD [address] [place] [address] [email or web address] PCP - General Family Medicine 01/04/23 Dung Mccormick MD Historical LMR Provider 06/14/17 Geoff Ratliff DO [address] [place] [address] [email or web address] Primary Oncologist Hematology and Oncology 09/16/17 Lindsey Shin FNP [address] [place] [address] [email or web address] Nurse Practitioner Oncology 06/11/21 documented as of this encounter Additional Source Comments The information contained in this document represents components of the legal health record. It is not the complete legal health record.[facility]
--- OUTSIDE RECORDS SUMMARY | 2025-06-19 15:06 | XMS_ITS | Encounter Summary ---
Author Organization [facility] Address [address] [place] [address] Phone Care Team Providers Care Paper Bag Maker Name Role Phone Dung Mccormick MD Unavailable Geoff Ratliff DO Unavailable [phone] Lindsey Shin HELICOPTER DISPATCHER Unavailable [phone] Sergio Fonseca MD Primary Care Provider [phone] Reason for Referral * MRI/CAT Scan - Closed Specialty Diagnoses / Procedures Referred By Khushbu cardona Referred To Contact Radiology Diagnoses Other abnormal findings on diagnostic imaging of central nervous system Procedures CT Head Sergio Fonseca MD [address] [place] [address] Phone: tel: fax: [email or web address] Referral ID Status Reason Start Date Expiration Date Visits Re quested Visits Authorized [id number] Closed 05/02/2025 05/02/2026 1 1 Encounter Details Date Type Department Care Team (Latest Contact Info) Description 05/02/2025 Transcribe Orders [facility] Department [address] [place] [address] Sergio Fonseca MD [address] [place], [place] [phone] [email or web address] Other abnormal findings on diagnostic imaging of central nervous system (Primary Dx) Social History Tobacco Use Types [...] housing situation today? I have marty sing 04/27/2025 How many times have you move [...] and Critical Care Medicine [address] [place] [address] Moose No MD [address] [place] [address] [email or web address] documented as of this encounter Results * CT HEAD WITHOUT CONTRAST (05/25/2025 12:15 [...] clinician's provided indication for this examination in [facility]: Outside Radiology Order; abnormal CT BRAIN TECHNIQUE: [...] shift. 3. No new acute intracranial abnormality. Sergio Fonseca MD G CT HEAD/NECK Final Result documented in this encounter Visit Diagnoses Diagnosis Other abnormal findings on diagnostic imaging of central nervous system- Primary Other abnormal findings on diagnostic imaging of central nervous system documented in this encounter Care Teams Paper Bag Maker Relationship Specialty Start Date End Date Sergio Fonseca MD [address] [place] [phone] [email or web address] PCP - General Family Medicine 01/04/23 Dung Mccormick MD [email or web address] Historical LMR Provider 06/14/17 Geoff Ratliff DO [address] [place] [address] [email or web address] Primary Oncologist Hematology and Oncology 09/16/17 Lindsey Shin FNP [address] [place] [address] [email or web address] Nurse Practitioner Oncology 06/11/21 documented as of this encounter Additional Source Comments The information contained in this document represents components of the legal health record. It is not the complete legal health record.[facility]
--- OUTSIDE RECORDS SUMMARY | 2025-06-19 15:06 | XMS_ITS | Encounter Summary ---
Author Organization [facility] Address [address] [place] [address] Phone Care Team Providers Care Stone Unloader Name Role Phone Dung Mccormick MD Unavailable Sol Flores MD Unavailable [phone] Joe Mcpherson FRUIT FARMWORKER Unavailable [phone] Dung Mccormick MD Primary Care Provider [phone] Geoff Ratliff DO Unavailable Lindsey Shin INVESTOR RELATIONS SPECIALIST Unavailable [phone] Sergio Fonseca MD Primary Care Provider [phone] Encounter Details Date Type Department Care Team (Latest Contact Info) Description 08/04/2017 Transcribe Orders [facility] Laboratory [address] [place], [place] [phone] Abad Xiao MD [address] [facility] 2 [place] [address] Anemia, unspecified type (Primary Dx) Social History Tobacco Use Types [...] Pulmonary, Allergy and Critical Care Medicine 10 [place] [address] Moose No MD [address] [place] [address] [email or web address] documented as of this encounter Results * (ABNORMAL) Urinalysis (08/04/2017 12:19 PM EST) COLOR VERENICE(A) Yellow [facility] CLARITY TURBID [facility] GLUCOSE Negative Negative [facility] BILI Negative Negative [facility] KETONES Negative Negative [facility] SPECIFIC GRAVITY >1.030 1.005 - 1.030 [facility] BLOOD Negative Negative [facility] PH 5.5 5.0 - 8.0 [facility] Protein-UA Negative Negative [facility] NITRITE Negative Negative [facility] Leukocyte esterase, ur Negative Negative [facility] Urine (Urine) 08/04/2017 12: 19 PM EST 08/04/2017 4:59 PM EST us Abad Xiao MD URINE ORDERABLES Final Resul t [address] [address] * Vitamin K (08/04/2017 12:18 PM EST) VITAMIN K1 0.23 0.10 - 2.20 ng/mL [facility] Comment: (NOTE) ADDITIONAL INFORMATION This test was developed and its performance characteristics determined by [facility] in a manner consistent with CLIA requirements. This test has not been cleared or approved by the U.S. Food and Drug Administration. Blood 08/04/2017 12:1 8 PM EST 08/04/2017 12:27 PM EST Abad Xiao MD LAB BLOOD ORDERABLES Final R esult Performing Organization Address [facility] Co de Phone Number [facility] [address] [place] [address] * Vitamin E (08/04/2017 12:18 PM EST) [facility] VIT E, A-TOCOPHEROL 6.6 5.5 - 17.0 mg/L [facility] Comment: (NOTE) ADDITIONAL INFORMATION This test was developed and its performance characteristics determined by [facility] in a manner consistent with CLIA requirements. This test has not been cleared or approved by the U.S. Food and Drug Administration. Blood 08/04/2017 12:1 8 PM EST 08/04/2017 12:27 PM EST Abad Xiao MD LAB BLOOD ORDERABLES Final [facility] Performing Organization Address [facility] de Phone Number [facility] [address] [place] [address] * (ABNORMAL) 25-OH vitamin D (08/04/2017 12:18 PM EST) [facility] 25 [place] VIT D (TOTAL) 29(L) 30 - 1,000 ng/mL [facility] Blood 08/04/2017 12:1 8 PM EST 08/04/2017 12:26 PM EST Result [facility] Abad Xiao MD LAB BLOOD ORDERABLES Final R esult Performing Organization Address [facility] Co de Phone Number [facility] [address] [place] [address] * Vitamin A (08/04/2017 12:18 PM EST) Pathologist [facility] VITAMIN A 46.7 32.5 - 78.0 mcg/dL [facility] Comment: (NOTE) ADDITIONAL INFORMATION This test was developed and its performance characteristics determined by [facility] in a manner consistent with CLIA requirements. This test has not been cleared or approved by the U.S. Food and Drug Administration. Blood 08/04/2017 12:1 8 PM EST 08/04/2017 12:27 PM EST Abad Xiao MD LAB BLOOD ORDERABLES Final R esult Performing Organization Address City/[facility]/ZIP Co de Phone Number [facility] [address] [place] [address] * Vitamin B12 (08/04/2017 12:18 PM EST) Pathologist [facility] VITAMIN B12 350 243 - 894 pg/mL [facility] Blood 08/04/2017 12:1 8 PM EST 08/04/2017 12:26 PM EST Abad Xiao MD LAB BLOOD ORDERABLES Final R esult Performing Organization Address City/[facility]/ZIP Co de Phone Number [address] [phone] * (ABNORMAL) CBC and differential (08/04/2017 12:18 PM EST) Pathologist [facility] WBC 3.20(L) 3.40 - 11.20 K/uL [facility] RBC 4.19(L) 4.50 - 5.50 M/uL [facility] HGB 11.2(L) 13.0 - 17.0 g/dL [facility] HCT 35.6(L) 40.0 - 51.0 % [facility] PLT 115(L) 130 - 400 K/uL [facility] MCV 85.0 79.0 - 98.0 fL [facility] MCH 26.7(L) 27.0 - 34.8 pg [facility] MCHC 31.5 31.5 - 36.0 g/dL [facility] RDW 15.9(H) 10.8 - 14.6 % [facility] MPV 9.8 9.4 - 12.4 fl [facility] NRBC 0.00 /100 WBCs [facility] ABSOLUTE NRBC 0.00 K/uL [facility] DIFF METHOD Auto [facility] NEUTS 64.7 45.30 - 77.70 % [facility] LYMPHS 23.4 12.30 - 39.70 % [facility] MONOS 8.8 4.10 - 12.80 % [facility] EOS 2.5 0 - 7.2 % [facility] BASOS 0.3 0 - 2.80 % [facility] Granulocytes, immature (%) 0.3 0.0 - 0.9 % [facility] ABSOLUTE NEUTS 2.07 1.40 - 7.70 K/uL [facility] ABSOLUTE LYMPHS 0.75 0.60 - 3.20 K/uL [facility] ABSOLUTE MONOS 0.28 0.11 - 0.59 K/uL [facility] ABSOLUTE EOS 0.08 0.01 - 0.50 K/uL [facility] ABSOLUTE BASOS 0.01 0.00 - 0.08 K/uL [facility] Granulocytes, immature 0.01 0.00 - 0.05 K/uL [facility] Blood 08/04/2017 12:1 8 PM EST 08/04/2017 12:26 PM EST us Abad Xiao MD LAB BLOOD ORDERABLES Final R esult [facility] 30 [place] [address] documented in this encounter Visit Diagnoses Diagnosis Anemia, unspecified type- Primary documented in this encounter Care Teams Stone Unloader Relationship Specialty Start Date End Date Dung Mccormick MD PCP - General Family Medicine 07/21/17 01/03/23 Sergio Fonseca MD [address] [place] [phone] [email or web address] PCP - General Family Medicine 01/04/23 Dung Mccormick MD Historical LMR Provider 06/14/17 Sol Flores MD [address] [place] [address] Historical LMR Provider 06/14/17 Joe Mcpherson CNP [address] [place] [address] Historical LMR Provider 06/14/17 09/06/21 Geoff Ratliff DO [address] [place] [address] [email or web address] Primary Oncologist Hematology and Oncology 09/16/17 Lindsey Shin FNP [address] [place] [address] Nurse Practitioner Oncology 06/11/21 documented as of this encounter Additional Source Comments The information contained in this document represents components of the legal health record. It is not the complete legal health record.[facility]
--- OUTSIDE RECORDS SUMMARY | 2025-06-19 15:06 | XMS_ITS | Encounter Summary ---
Author Organization [facility] Address [address] [place] [address] Phone Care Team Providers Care Blindstitch Lining Feller Name Role Phone Dung Mccormick MD Unavailable Sol Flores MD Unavailable [phone] Joe Mcpherson SPIRITUAL MINISTER Unavailable [phone] Dung Mccormick MD Primary Care Provider [phone] Geoff Ratliff DO Unavailable [phone] Lindsey Shin BINDING END STITCHER Unavailable [phone] Sergio Fonseca MD Primary Care Provider [phone] Encounter Details Date Type Department Care Team (Late st Contact Info) Description 07/28/2017 Procedure Pass [facility] Endoscopy Admitting Dept Virtual Department [address] [place] [address] Social History Tobacco Use Types Packs/Day Years [...] Encounters Date Type Department Care Team (Late Contact Info) Description 07/16/2025 1:00 PM EST Office Visit [facility] Pulmonary, Allergy and Critical Care Medicine 10 [place] [address] Moose No MD 30 [place] [address] [email or web address] documented as of this encounter Visit Diagnoses Not on filedocumented in this encounter Care Teams Blindstitch Lining Feller Relationship Specialty Start Date End Date Dung Mccormick MD [email or web address] PCP - General Family Medicine 07/21/17 01/03/23 Sergio Fonseca MD 70 [place] [address] [email or web address] PCP - General Family Medicine 01/04/23 Dung Mccormick MD [email or web address] Historical LMR Provider 06/14/17 Sol Flores MD [address] [place] [address] [email or web address] Historical LMR Provider 06/14/17 Joe Mcpherson CNP [address] [place] [address] Historical LMR Provider 06/14/17 09/06/21 Geoff Ratliff DO [address] [place] [address] [email or web address] Primary Oncologist Hematology and Oncology 09/16/17 Lindsey Shin FNP [address] [place] [address] [email or web address] Nurse Practitioner Oncology 06/11/21 documented as of this encounter Additional Source Comments The information contained in this document represents components of the legal health record. It is not the complete legal health record.[facility]
--- OUTSIDE RECORDS SUMMARY | 2025-06-19 15:06 | XMS_ITS | Encounter Summary ---
Author Organization [facility] Address [address] [place] [address] Phone Care Team Providers Care Airplane Tester Name Role Phone Dung Mccormick MD Unavailable Sol Flores MD Unavailable [phone] Joe Mcpherson ICE SELLER Unavailable [phone] Dung Mccormick MD Primary Care Provider [phone] Geoff Ratliff DO Unavailable Lindsey Shin BENEFIT AUTHORIZER Unavailable [phone] Sergio Fonseca MD Primary Care Provider [phone] Encounter Details Date Type Department Care Team (Latest Contact Info) Description 08/09/2017 Transcribe Orders [facility] Laboratory 30 [place] [address] Abad Xiao MD [address] [phone] [email or web address] Anemia, unspecified type (Primary Dx) Social History [...] Critical Care Medicine [address] [place] [address] Moose No MD [address] [place] [address] documented as of this encounter Results * (ABNORMAL) Stool fat/fiber exam (08/09/2017 12:59 PM EST) FATTY ACID INCREASED(A ) NORMAL [facility] Neutral Fat, stool NORMAL NORMAL [facility] Stool (Stool) 08/09/2017 12: 59 PM EST 08/09/2017 1:31 PM EST us Abad Xiao MD BODY FLUIDS AND STOOLS ORDER STARR Final Result [address] [address] * Fecal occult blood, multiple (08/09/2017 12:59 PM EST) FECAL OCC BLD 1 DATE 121,117 [facility] Occult bld, stool, #1 Negative Negative [facility] Stool (Stool) 08/09/2017 12: 59 PM EST 08/09/2017 1:31 PM EST us Abad Xiao MD BODY FLUIDS AND STOOLS ORDER STARR Final Result [address] [address] * Miscellaneous lab test (08/09/2017 12:59 PM EST) TESTS REQUESTED ALPHA 1 ANTITRYPSIN, RANDOM, FECES (MARSH CODE: [id number]) [facility] SPECIMEN/TUBE TYPE STOOL [facility] REQUEST RECEIVED Request received. A separate order for the requested test will be generated by the laboratory. [facility] Blood 08/09/2017 12:5 9 PM EST 08/09/2017 1:31 PM EST us Abad Xiao MD LAB BLOOD ORDERABLES Final R esult [address] [address] documented in this encounter Visit Diagnoses Diagnosis Anemia, unspecified type- Primary documented in this encounter Care Teams Airplane Tester Relationship Specialty Start Date End Date Dung Mccormick MD PCP - General Family Medicine 07/21/17 01/03/23 Sergio Fonseca MD [address] [place] [phone] [email or web address] PCP - General Family Medicine 01/04/23 Dung Mccormick MD Historical LMR Provider 06/14/17 Sol Flores MD [address] [place] [address] Historical LMR Provider 06/14/17 Joe Mcpherson ICE SELLER [address] [place] [address] Historical LMR Provider 06/14/17 09/06/21 Geoff Ratliff DO [address] [place] [address] [email or web address] Primary Oncologist Hematology and Oncology 09/16/17 Lindsey Shin FNP [address] [place] [address] [email or web address] Nurse Practitioner Oncology 06/11/21 documented as of this encounter Additional Source Comments The information contained in this document represents components of the legal health record. It is not the complete legal health record.[facility]
--- OUTSIDE RECORDS SUMMARY | 2025-06-19 15:06 | XMS_ITS | Encounter Summary ---
Author Organization [facility] Address [address] [place] [address] Phone Care Team Providers Care Metal Punch Press Operator Name Role Phone Dung Mccormick MD Unavailable Sol Flores MD Unavailable [phone] Joe Mcpherson GAS TURBINE ASSEMBLER Unavailable [phone] Dugn Mccormick MD Primary Care Provider [phone] Geoff Ratliff DO Unavailable Lindsey Shin SCALING MACHINE OPERATOR Unavailable [phone] Sergio Fonseca MD Primary Care Provider Encounter Details Date Type Department Care Team (Latest Contact Info) Description 10/31/2019 Transcribe Orders Virtual Department 30 [place] [address] Abad Xiao MD [address] [place] [phone] [email or web address] Pancreatic insufficiency (Primary Dx); Hepatic cirrhosis, unspecified hepatic cirrhosis type, unspecified [...] Upcoming Encounters Date Type Department Care Team ([facility] st Contact Info) Description 07/16/2025 1:00 PM EST Office Visit [facility] Pulmonary, Allergy and Critical Care Medicine 10 [place] [address] Moose No MD [address] [place] [address] [email or web address] documented as of this encounter Visit Diagnoses Diagnosis Pancreatic insufficiency- Primary Other specified disease of pancreas Hepatic cirrhosis, unspecified hepatic cirrhosis type, unspecified whether ascites present documented in this encounter Care Teams Metal Punch Press Operator Relationship Specialty Start Date End Date Dung Mccormick MD PCP - General Family Medicine 07/21/17 01/03/23 Sergio Fonseca MD [address] [place] [address] [email or web address] PCP - General Family Medicine 01/04/23 Dung Mccormick MD Historical LMR Provider 06/14/17 Sol Flores MD [address] [address] Historical LMR Provider 06/14/17 Joe Mcpherson CNP [address] [address] Historical LMR Provider 06/14/17 09/06/21 Geoff Ratliff DO 30 [place] [address] [email or web address] Primary Oncologist Hematology and Oncology 09/16/17 Lindsey Shin FNP [address] [place] [address] [email or web address] Nurse Practitioner Oncology 06/11/21 documented as of this encounter Additional Source Comments The information contained in this document represents components of the legal health record. It is not the complete legal health record.[facility]
--- OUTSIDE RECORDS SUMMARY | 2025-06-19 15:06 | XMS_ITS | Encounter Summary ---
Author Organization [facility] Address [address] [place] [address] Phone Care Team Providers Care Precinct I Police Sergeant Name Role Phone Dung Mccormick MD Unavailable Sol Flores MD Unavailable [phone] Joe Mcpherson DIVISION HUMAN RESOURCES MANAGER Unavailable [phone] Dung Mccormick MD Primary Care Provider [phone] Geoff Ratliff DO Unavailable Lindsey Shin STUDENT EDUCATION SPECIALIST Unavailable [phone] Sergio Fonseca MD Primary Care Provider [phone] Encounter Details Date Type Department Care Team (Latest Contact Info) Description 06/21/2019 Transcribe Orders [facility] Laboratory 30 [place] [address] Geoff Ratliff DO 30 [place] [address] [email or web address] Screening for unspecified condition (Primary Dx) Social History Tobacco Use [...] Upcoming Encounters Date Type Department Care Team ([facility] st Contact Info) Description 07/16/2025 1:00 PM EST Office Visit [facility] Pulmonary, Allergy and Critical Care Medicine 10 [place] [address] Moose No MD [address] [place] [address] documented as of this encounter Visit Diagnoses Diagnosis Screening for unspecified condition- Primary documented in this encounter Care Teams Precinct I Police Sergeant Relationship Specialty Start Date End Date Dung Mccormick MD PCP - General Family Medicine 07/21/17 01/03/23 Sergio Fonseca MD [address] [place] [phone] [email or web address] PCP - General Family Medicine 01/04/23 Dung Mccormick MD Historical LMR Provider 06/14/17 Sol Flores MD [address] [place] [address] Historical LMR Provider 06/14/17 Joe Mcpherson CNP [address] [place] [address] Historical LMR Provider 06/14/17 09/06/21 Geoff Ratliff DO 30 [place] [address] [email or web address] Primary Oncologist Hematology and Oncology 09/16/17 Lindsey Shin FNP 30 [place] [address] [email or web address] Nurse Practitioner Oncology 06/11/21 documented as of this encounter Additional Source Comments The information contained in this document represents components of the legal health record. It is not the complete legal health record.[facility]
--- OUTSIDE RECORDS SUMMARY | 2025-06-19 15:06 | XMS_ITS | Encounter Summary ---
Author Organization [facility] Address [address] [place] [address] [place] [address] Phone Care Team Providers Care Fruit Press Operator Name Role Phone Dung Mccormick MD Unavailable Geoff Ratliff DO Unavailable Lindsey Shin HOT PLATE [employer] PRESS LABORER Unavailable [phone] Sergio Fonseca MD Primary Care Provider [phone] Encounter Details Date Type Department Care Team (Late st Contact Info) Description 12/11/2024 Procedure Pass [facility], Ct Scan - [address] [address] Social History Tobacco Use Types Packs/Day Years [...] Critical Care Medicine [address] [place] [address] Moose No MD 30 [place] [address] [email or web address] documented as of this encounter Visit Diagnoses Not on filedocumented in this encounter Care Teams Fruit Press Operator Relationship Specialty Start Date End Date Sergio Fonseca MD [address] [place] [address] [email or web address] PCP - General Family Medicine 01/04/23 Dung Mccormick MD Historical LMR Provider 06/14/17 Geoff Ratliff DO [address] [place] [address] [email or web address] [email or web address] Primary Oncologist Hematology and Oncology 09/16/17 Lindsey Shin FNP 30 [place] [address] [email or web address] Nurse Practitioner Oncology 06/11/21 documented as of this encounter Additional Source Comments The information contained in this document represents components of the legal health record. It is not the complete legal health record.[facility]
--- OUTSIDE RECORDS SUMMARY | 2025-06-19 15:06 | XMS_ITS | Encounter Summary ---
Author Organization [facility] Address [address] [address] Phone Care Team Providers Care Vacuum Caster Name Role Phone Dung Mccormick MD Unavailable Geoff Ratliff DO Unavailable [phone] Lindsey Shin OWNER OPERATOR TANKER TRUCK DRIVER Unavailable [phone] Sergio Fonseca MD Primary Care Provider [phone] Encounter Details Date Type Department Care Team (Latest Contact Info) Description 05/04/2024 Transcribe Orders Virtual Department 30 [place] [address] Ciro Brown MD [address] [place] [address] [email or web address] Hyperparathyroidism, unspecified (Primary Dx) Social History Tobacco [...] Pulmonary, Allergy and Critical Care Medicine 10 [facility] [place] [address] Moose No MD 30 [place] [address] [email or web address] documented as of this encounter Visit Diagnoses Diagnosis Hyperparathyroidism, unspecified- Primary documented in this encounter Care Teams Vacuum Caster Relationship Specialty Start Date End Date Sergio Fonseca MD 70 [place] [phone] [email or web address] PCP - General Family Medicine 01/04/23 Dung Mccormick MD [email or web address] Historical LMR Provider 06/14/17 Geoff Ratliff DO [address] [place] [address] [email or web address] Primary Oncologist Hematology and Oncology 09/16/17 Lindsey Shin FNP 30 [place] [address] [email or web address] Nurse Practitioner Oncology 06/11/21 documented as of this encounter Additional Source Comments The information contained in this document represents components of the legal health record. It is not the complete legal health record.[facility]
--- OUTSIDE RECORDS SUMMARY | 2025-06-19 15:07 | XMS_ITS | Encounter Summary ---
Author Organization [facility] Address [address] [place] [address] Phone Care Team Providers Care Operations Team Leader Name Role Phone Dung Mccormick MD Unavailable Dung Mccormick MD Primary Care Provider [phone] Geoff Ratliff DO Unavailable Lindsey Shin VP DATA Unavailable [phone] Sergio Fonseca MD Primary Care Provider [phone] Encounter Details Date Type Department Care Team (Latest Contact Info) Description 12/09/2022 Transcribe Orders Virtual Department 30 [place] [address] Abad Xiao MD [address] [place] [address] [email or web address] Alcoholic cirrhosis, unspecified whether ascites present (Primary [...] Critical Care Medicine [address] [place] [address] Moose No MD 30 [place] [address] documented as of this encounter Results * US ABDOMEN LIMITED RIGHT UPPER QUADRANT (01/04/2023 10:47 AM EDT) Anatomical Region Laterality Modality Abdomen Ultrasound 01/04/2023 10:4 9 AM EDT Impressions 01/04/2023 10:50 AM EDT No focal liver lesions. Narrative 01/04/2023 10:50 AM EDT US ABDOMEN LIMITED RIGHT UPPER QUADRANT TECHNIQUE: US Abdominal limited right upper quadrant. COMPARISON: 07/14/2022 FINDINGS: Liver: Cirrhotic morphology. No focal lesions. Main Portal Vein: Patent with normal direction of flow. Gallbladder: Normal. No gallstones or gallbladder wall thickening. Biliary: Normal. No intrahepatic or extrahepatic biliary ductal dilatation. The common bile duct measures 2 mm. Procedure Note Kings Conner MD, OMAR - 01/04/2023 US ABDOMEN LIMITED RIGHT UPPER QUADRANT TECHNIQUE: US Abdominal limited right upper quadrant. COMPARISON: 07/14/2022 FINDINGS: Liver: Cirrhotic morphology. No focal lesions. Main Portal Vein: Patent with normal direction of flow. Gallbladder: Normal. No gallstones or gallbladder wall thickening. Biliary: Normal. No intrahepatic or extrahepatic biliary ductaldilatation. The common bile duct measures 2 mm. IMPRESSION: No focal liver lesions. Abad Xiao MD IMG US ABDOMEN Final Result documented in this encounter Visit Diagnoses Diagnosis Alcoholic cirrhosis, unspecified whether ascites present- Primary Chronic pancreatitis, unspecified pancreatitis type Alcoholic cirrhosis, unspecified whether ascites present Chronic pancreatitis, unspecified pancreatitis type documented in this encounter Care Teams Operations Team Leader Relationship Specialty Start Date End Date Dung Mccormick MD [email or web address] PCP - General Family Medicine 07/21/17 01/03/23 Sergio Fonseca MD [address] [place] [phone] [email or web address] PCP - General Family Medicine 01/04/23 Dung Mccormick MD [email or web address] Historical LMR Provider 06/14/17 Geoff Ratliff DO [address] [place] [address] [email or web address] Primary Oncologist Hematology and Oncology 09/16/17 Lindsey Shin FNP [address] [place] [address] [email or web address] Nurse Practitioner Oncology 06/11/21 documented as of this encounter Additional Source Comments The information contained in this document represents components of the legal health record. It is not the complete legal health record.[facility]
--- OUTSIDE RECORDS SUMMARY | 2025-06-19 15:07 | XMS_ITS | Encounter Summary ---
Author Organization [facility] Address [address] [place] [address] Phone Care Team Providers Care Facility Maintenance Mechanic Name Role Phone Dung Mccormick MD Unavailable Sol Flores MD Unavailable [phone] Joe Mcpherson WAREHOUSE ASSEMBLY WORKER Unavailable [phone] Dung Mccormick MD Primary Care Provider [phone] Geoff Ratliff DO Unavailable Lindsey Shin COIL MACHINE SUPERVISOR Unavailable [phone] Sergio Fonseca MD Primary Care Provider [phone] Encounter Details Date Type Department Care Team (Latest Contact Info) Description 11/10/2017 Transcribe Orders [facility] [address] [place] [address] Geoff Ratliff DO 30 [place] [address] [email or web address] [email or web address] Diagnosis unknown (Primary Dx) Social History Tobacco Use Types [...] Critical Care Medicine [address] [place] [address] Moose No MD 30 [place] [address] documented as of this encounter Results * (ABNORMAL) CBC and differential (12/07/2017 10:59 AM EDT) WBC 3.11(L) 3.40 - 11.20 K/uL [facility] RBC 3.96(L) 4.50 - 5.50 M/uL [facility] HGB 11.6(L) 13.0 - 17.0 g/dL [facility] HCT 36.6(L) 40.0 - 51.0 % [facility] PLT 110(L) 130 - 400 K/uL [facility] MCV 92.4 79.0 - 98.0 fL [facility] MCH 29.3 27.0 - 34.8 pg [facility] MCHC 31.7 31.5 - 36.0 g/dL [facility] RDW 14.4 10.8 - 14.6 % [facility] MPV 10.5 9.4 - 12.4 fl [facility] NRBC 0.00 /100 WBCs [facility] ABSOLUTE NRBC 0.00 K/uL [facility] DIFF METHOD Auto [facility] NEUTS 67.6 45.30 - 77.70 % [facility] LYMPHS 19.9 12.30 - 39.70 % [facility] MONOS 5.8 4.10 - 12.80 % [facility] EOS 5.8 0 - 7.2 % [facility] BASOS 0.6 0 - 2.80 % [facility] Granulocytes, immature (%) 0.3 0.0 - 0.9 % [facility] ABSOLUTE NEUTS 2.10 1.40 - 7.70 K/uL [facility] ABSOLUTE LYMPHS 0.62 0.60 - 3.20 K/uL [facility] ABSOLUTE MONOS 0.18 0.11 - 0.59 K/uL [facility] ABSOLUTE EOS 0.18 0.01 - 0.50 K/uL [facility] ABSOLUTE BASOS 0.02 0.00 - 0.08 K/uL [facility] Granulocytes, immature 0.01 0.00 - 0.05 K/uL [facility] Blood 12/07/2017 10:5 9 AM EDT 12/07/2017 11:08 AM EDT Geoff Ratliff DO LAB BLOOD ORDERABLES Final Result Performing Organization Address City/[facility]/ZIP Co de Phone Number [address] [address] * LDH (12/07/2017 10:59 AM EDT) LDH 229 118 - 273 U/L [facility] Blood 12/07/2017 10:5 9 AM EDT 12/07/2017 11:08 AM EDT Geoff Ratliff LAB BLOOD ORDERABLES Final Result Performing Organization Address [facility]/ZIP Co de Phone Number [address] [address] * Haptoglobin (12/07/2017 10:59 AM EDT) HAPTOGLOBIN 117 30 - 200 mg/dL [facility] DPT OF LAB MED AND PAT+ Blood 12/07/2017 10:5 9 AM EDT 12/07/2017 11:08 AM EDT Geoff Jordanome DO LAB BLOOD ORDERABLES Final Result [facility] DPT OF LAB MED AND PAT+ [address] [place] [address] * Copper, blood (12/07/2017 10:59 AM EDT) COPPER 1.00 0.75 - 1.45 mcg/mL [facility]PER[facility] Comment: (NOTE) ADDITIONAL INFORMATION This test was developed and its performance characteristics determined by [facility] in a manner consistent with CLIA requirements. This test has not been cleared or approved by the U.S. Food and Drug Administration. Blood 12/07/2017 10:5 9 AM EDT 12/07/2017 11:08 AM EDT us Geoff W Gaudencio DO LAB BLOOD ORDERABLES Final Result [facility] [address] [place] [address] documented in this encounter Visit Diagnoses Diagnosis Diagnosis unknown- Primary documented in this encounter Care Teams Facility Maintenance Mechanic Relationship Specialty Start Date End Date Dung Mccormick MD [email or web address] PCP - General Family Medicine 07/21/17 01/03/23 Sergio Fonseca MD [address] [place] [phone] [email or web address] PCP - General Family Medicine 01/04/23 Dung Mccormick MD [email or web address] Historical LMR Provider 06/14/17 Sol Flores MD [address] [place] [address] [email or web address] Historical LMR Provider 06/14/17 Joe Mcpherson, BUD [address] [place] [address] [email or web address] Historical LMR Provider 06/14/17 09/06/21 Geoff Ratliff DO [address] [place] [address] [email or web address] [email or web address] Primary Oncologist Hematology and Oncology 09/16/17 Lindsey Shin FNP [address] [place] [address] [email or web address] Nurse Practitioner Oncology 06/11/21 documented as of this encounter Additional Source Comments The information contained in this document represents components of the legal health record. It is not the complete legal health record.[facility]
--- OUTSIDE RECORDS SUMMARY | 2025-06-19 15:07 | XMS_ITS | Encounter Summary ---
Author Organization [facility] Address [address] [place] [address] Phone Care Team Providers Care Principal Strategist Name Role Phone Dung Mccormick MD Unavailable Sol Flores MD Unavailable [phone] Joe Mcpherson CHEMIC MANGLER Unavailable [phone] Dung Mccormick MD Primary Care Provider [phone] Geoff Ratliff DO Unavailable Lindsey Shin TALENT DEVELOPMENT MANAGER Unavailable [phone] Sergio Fonseca MD Primary Care Provider [phone] Encounter Details Date Type Department Care Team (Latest Contact Info) Description 11/10/2017 Transcribe Orders [facility] [address] [place] [address] Michelle Grey PA [address] [place] [address] Alaina (Primary Dx) Social History Tobacco Use Types [...] Critical Care Medicine [address] [place] [address] Moose No MD [address] [place] [address] documented as of this encounter Procedures Procedure Name Priority Date/Time Associated Diagnosis Comments CBC Routine 11/10/2017 10:52 AM EDT Kwashiorkor documented in this encounter Results * (ABNORMAL) CBC (11/10/2017 10:52 AM EDT) WBC 3.05(L) 3.40 - 11.20 K/uL [facility] RBC 3.50(L) 4.50 - 5.50 M/uL [facility] HGB 10.6(L) 13.0 - 17.0 g/dL [facility] HCT 33.1(L) 40.0 - 51.0 % [facility] PLT 93(L) 130 - 400 K/uL [facility] Comment:Consistent with prev ious results MCV 94.6 79.0 - 98.0 fL [facility] MCH 30.3 27.0 - 34.8 pg [facility] MCHC 32.0 31.5 - 36.0 g/dL [facility] RDW 14.5 10.8 - 14.6 % [facility] MPV 9.7 9.4 - 12.4 fl [facility] NRBC 0.00 /100 WBCs [facility] ABSOLUTE NRBC 0.00 K/uL [facility] Blood 11/10/2017 10:5 2 AM EDT 11/10/2017 10:56 AM EDT us Michelle MUNOZ LAB BLOOD ORDERABLES Final Result [address] [address] documented in this encounter Visit Diagnoses Diagnosis Kwashiorkor- Primary documented in this encounter Care Teams Principal Strategist Relationship Specialty Start Date End Date Dung Mccormick MD [email or web address] PCP - General Family Medicine 07/21/17 01/03/23 Sergio Fonseca MD [address] [place] [phone] [email or web address] PCP - General Family Medicine 01/04/23 Dung Mccormick MD [email or web address] Historical LMR Provider 06/14/17 Sol Flores MD [address] [place] [address] [email or web address] Historical LMR Provider 06/14/17 Joe Mcpherson CNP [address] [place] [address] [email or web address] Historical LMR Provider 06/14/17 09/06/21 Geoff Ratliff DO [address] [place] [address] [email or web address] Primary Oncologist Hematology and Oncology 09/16/17 Lindsey Shin, TALENT DEVELOPMENT MANAGER [address] [place] [address] [email or web address] Nurse Practitioner Oncology 06/11/21 documented as of this encounter Additional Source Comments The information contained in this document represents components of the legal health record. It is not the complete legal health record.[facility]
--- OUTSIDE RECORDS SUMMARY | 2025-06-19 15:07 | XMS_ITS | Encounter Summary ---
Author Organization [facility] Address [facility] [employer] [facility] [address] [place] [address] Phone Care Team Providers Care Appraiser Name Role Phone Dung Mccormick MD Unavailable Geoff Ratliff DO Unavailable [phone] Lindsey Shin PAD HAND Unavailable [phone] Sergio Fonseca MD Primary Care Provider [phone] Encounter Details Date Type Department Care Team (Late st Contact Info) Description 05/02/2025 Procedure Pass [facility], Ct Scan - [address] [id number] Social History Tobacco Use Types Packs/Day Years [...] Pulmonary, Allergy and Critical Care Medicine 10 [place] [address] Moose No MD 30 [place] [address] documented as of this encounter Visit Diagnoses Not on filedocumented in this encounter Care Teams Appraiser Relationship Specialty Start Date End Date Sergio Fonseca MD [address] [place] [phone] [email or web address] PCP - General Family Medicine 01/04/23 Dung Mccormick MD [email or web address] Historical LMR Provider 06/14/17 Geoff Ratliff DO [address] [place] [address] [email or web address] Primary Oncologist Hematology and Oncology 09/16/17 Lindsey Shin FNP [address] [place] [address] [email or web address] Nurse Practitioner Oncology 06/11/21 documented as of this encounter Additional Source Comments The information contained in this document represents components of the legal health record. It is not the complete legal health record.[facility]
--- OUTSIDE RECORDS SUMMARY | 2025-06-19 15:07 | XMS_ITS | Encounter Summary ---
Author Organization [facility] Address [address] [place] [address] Phone Care Team Providers Care Outdoor Advertising Leasing Agent Name Role Phone Dung Mccormick MD Unavailable Sol Flores MD Unavailable [phone] Joe Mcpherson GEOCHEMICAL MANAGER Unavailable [phone] Dung Mccormick MD Primary Care Provider [phone] Geoff Ratliff DO Unavailable [phone] Lindsey Shin TAPE FOLDING MACHINE OPERATOR Unavailable [phone] Sergio Fonseca MD Primary Care Provider [phone] Reason for Referral * Outpatient Procedure - Closed Specialty Diagnoses / Procedures Referred By Contac t Referred To Contact Diagnoses Atypical chest pain Procedures Stress Test Exercise Dung Mccormick MD Phone: tel: fax: mailto:[email or web address] Referral ID Status Reason Start Date Expiration Date Visits Re quested Visits Authorized [id number] Closed 09/14/2018 09/14/2019 1 1 Encounter Details Date Type Department Care Team (Late st Contact Info) Description 09/14/2018 Ancillary Orders [facility] Department [address] [place] [address] Dung Mccormick MD [address] [place] [address] [phone] [email or web address] Atypical chest pain Social History Tobacco Use Types Packs/Day Years [...] CD Pulmonary, Allergy and Critical Care Medicine [address] [place] [address] Moose No MD [address] [place] [address] [email or web address] documented as of this encounter Results * Stress Test Exercise (09/22/2018 11:51 AM EST) Max BP Systolic 190 mmHg [facility] Max BP Diastolic 80 mmHg [facility] Max HR 137 BPM [facility] Resting HR 81 BPM [facility] Resting BP Systolic 130 mmHg [facility] Resting BP Diastolic 78 mmHg [facility] Peak METS 8.5 METS [facility] Peak HR 134 BPM [facility] Anatomical Region Laterality Modality Heart Other 09/22/2018 10:5 6 AM EST 09/22/2018 11:50 AM EST Addenda Addendum by Randy Gallegos MD on 09/22/2018 3:44 PM EST Response to Stress The patient exercised for minutes seconds, achieving 8.5 METS at peak exercise. Baseline blood pressure was 130/78 mmHg, and baseline heart rate was 81 bpm. The patient achieved a peak heart rate of 134 bpm, which is% of their maximum predicted heart rate. Exercise Stress Test Report: Reason for testing: atypical CP Reason for termination: fatigue Summary: Resting ECG: SR HR 70 BPM, RSR', TWI III Chest pain at rest: none Arrhythmias at baseline: none Conclusion: Patient exercised for 6:30 minutes on a standard Ramon protocol achieving 89% MPHR and 8.5 METS. Test terminated due to fatigue. Summary: 1. EKG: Exaggeration of T wave inversions in lead III during exercise, T wave inversions late in recovery in V5 and V6, aVF, but not meeting criteria for ischemia. 2. Symptoms: No exertional chest pain or symptoms concerning for angina 3. Exercise physiology: Normal heart rate and BP response to exercise. Max HR 137 BPM with normal HR recovery. Max BP 190/80 from baseline BP of 130/78. 02 sat 93-95% and stable throughout the procedure. Average functional capacity for age. See attached stress report for full details. 4. Arrhythmia: occasional PVC in recovery 5. Burkett Treadmill Score = 6, low risk for cardiac event Conclusion: Normal ETT. No EKG changes meeting criteria for ischemia. Burkett treadmill score of 6 indicating low risk for cardiac event. Vital signs at baseline at time of discharge from the lab. EKG reviewed with Dr. Gallegos. Monserrat Meadows, SEJAL, MPH . us Dung Mccormick MD CV STRESS ORDERABLES Edited Resu lt - Final documented in this encounter Visit Diagnoses Diagnosis Atypical chest pain Other chest pain Atypical chest pain Other chest pain documented in this encounter Care Teams Outdoor Advertising Leasing Agent Relationship Specialty Start Date End Date Dung Mccormick MD [email or web address] PCP - General Family Medicine 07/21/17 01/03/23 Sergio Fonseca MD [address] [place] [phone] [email or web address] PCP - General Family Medicine 01/04/23 Dung Mccormick MD Historical LMR Provider 06/14/17 Sol Flores MD [address] [address] [email or web address] Historical LMR Provider 06/14/17 Joe Mcpherson CNP [address] [place] [address] [email or web address] Historical LMR Provider 06/14/17 09/06/21 Geoff Ratliff DO [address] [place] [address] [email or web address] Primary Oncologist Hematology and Oncology 09/16/17 Lindsey Shin FNP [address] [place] [address] [email or web address] Nurse Practitioner Oncology 06/11/21 documented as of this encounter Additional Source Comments The information contained in this document represents components of the legal health record. It is not the complete legal health record.[facility]
--- OUTSIDE RECORDS SUMMARY | 2025-06-19 15:07 | XMS_ITS | Encounter Summary ---
Author Organization [facility] Address [address] [place] [address] Phone Care Team Providers Care Quality Assurance Intern Name Role Phone Dung Mccormick MD Unavailable Geoff Ratliff DO Unavailable [phone] Lindsey Shin LICENSED CLINICIAN Unavailable [phone] Sergio Fonseca MD Primary Care Provider Encounter Details Date Type Department Care Team (Late st Contact Info) Description 04/12/2025 Procedure Pass [facility] Echo Lab [address] [place], [place] [id number] Social History Tobacco Use Types Packs/Day Years [...] Allergy and Critical Care Medicine [address] [facility] [address] Moose No MD [address] [place] [address] [email or web address] documented as of this encounter Visit Diagnoses Not on filedocumented in this encounter Care Teams Quality Assurance Intern Relationship Specialty Start Date End Date Sergio Fonseca MD 70 [place] [address] [email or web address] PCP - General Family Medicine 01/04/23 Dung Mccormick MD [email or web address] Historical LMR Provider 06/14/17 Geoff Ratliff DO [address] [place] [address] [email or web address] Primary Oncologist Hematology and Oncology 09/16/17 Lindsey Shin FNP [address] [place] [address] [email or web address] Nurse Practitioner Oncology 06/11/21 documented as of this encounter Additional Source Comments The information contained in this document represents components of the legal health record. It is not the complete legal health record.[facility]
--- OUTSIDE RECORDS SUMMARY | 2025-06-19 15:07 | XMS_ITS | Encounter Summary ---
Author Organization [facility] Address [address] [place] [address] Phone Care Team Providers Care Hockey Player Name Role Phone Dung Mccormick MD Unavailable Geoff Ratliff DO Unavailable Lindsey Shin XEROX MACHINE MECHANIC Unavailable [phone] Sergio Fonseca MD Primary Care Provider [phone] Encounter Details Date Type Department Care Team (Latest Contact Info) Description 05/18/2023 Transcribe Orders [facility] Laboratory [address] [place], [place] [phone] Abad Xiao MD 10 [facility] 2 [place], [place] [phone] [email or web address] Hepatic cirrhosis, unspecified hepatic cirrhosis type, unspecified whether ascites present (Primary Dx); Alcoholic cirrhosis, unspecified whether ascites present Social History Tobacco [...] Pulmonary, Allergy and Critical Care Medicine 10 [place] [address] Moose No MD 30 [place] [address] [email or web address] documented as of this encounter Results * (ABNORMAL) Comprehensive metabolic panel (05/20/2023 10:36 AM EDT) SODIUM 143 133 - 146 mmol/L [facility] POTASSIUM 4.0 3.3 - 5.1 mmol/L [facility] CHLORIDE 106 96 - 108 mmol/L [facility] CO2 29 21 - 35 mmol/L [facility] BUN 14 6 - 19 mg/dL [facility] CREATININE 1.40 0.5 - 1.5 mg/dL [facility] GLUCOSE 169(H) 70 - 99 mg/dL [facility] ALBUMIN 3.8(L) 3.9 - 4.8 g/dL [facility] TOTAL PROTEIN 6.8 6.5 - 8.0 g/dL [facility] CALCIUM 8.7 8.4 - 10.3 mg/dL [facility] ALKALINE PHOSPHATASE 257(H) 39 - 117 U/L [facility] TOTAL BILIRUBIN <0.2 0.0 - 1.2 mg/dL [facility] AST 27 0 - 37 U/L [facility] ALT 48(H) 0 - 40 U/L [facility] GLOBULIN 3.0 1 - 4.8 g/dL [facility] EGFR 53(L) >59 mL/min/1.7 3m2 [facility] Comment:Estimated glomerular filtration rate calculated using the CKD-EPI refit equation. ANION GAP 12 10 - 20 mmol/L [facility] Blood 05/20/2023 10:3 6 AM EDT 05/20/2023 10:38 AM EDT us Abad Xiao MD LAB BLOOD ORDERABLES Final R esult Performing Organization Address City/[facility]/ZIP Co de Phone Number [address] [address] * (ABNORMAL) CBC (05/20/2023 10:36 AM EDT) WBC 5.49 4.00 - 11.00 K/uL [facility] RBC 4.35 3.90 - 5.69 M/uL [facility] HGB 12.6 12.4 - 17.3 g/dL [facility] HCT 39.9 37.0 - 51.0 % [facility] PLT 113(L) 140 - 430 K/uL [facility] MCV 91.7 78.0 - 97.0 fL [facility] MCH 29.0 25.0 - 33.0 pg [facility] MCHC 31.6(L) 32.0 - 36.0 g/dL [facility] RDW 14.0 11.0 - 15.0 % [facility] MPV 9.8 8.4 - 12.8 fl [facility] Blood 05/20/2023 10:3 6 AM EDT 05/20/2023 10:38 AM EDT us Abad Xiao MD LAB BLOOD ORDERABLES Final R esult Performing Organization Address City/[facility]/ZIP Co de Phone Number [address] [address] * AFP (non-maternal specimens) (05/20/2023 10:36 AM EDT) AFP (NON-MATERNAL) 1.8 <7.9 ng/mL [facility] Comment: Test Methodology Jori [id number] Patient results determined by assays using different manufacturers or methods may not be comparable. Blood 05/20/2023 10:3 6 AM EDT 05/20/2023 10:38 AM EDT us Abad Xiao MD LAB BLOOD ORDERABLES Final R esult [facility] [address] [place] [address] documented in this encounter Visit Diagnoses Diagnosis Hepatic cirrhosis, unspecified hepatic cirrhosis type, unspecified whether ascites present- Primary Alcoholic cirrhosis, unspecified whether ascites present documented in this encounter Care Teams Hockey Player Relationship Specialty Start Date End Date Sergio Fonseca MD [address] [place] [phone] [email or web address] PCP - General Family Medicine 01/04/23 Dung Mccormick MD [email or web address] Historical LMR Provider 06/14/17 Geoff Ratliff DO [address] [place] [address] [email or web address] Primary Oncologist Hematology and Oncology 09/16/17 Lindsey Shin FNP [address] [place] [address] [email or web address] Nurse Practitioner Oncology 06/11/21 documented as of this encounter Additional Source Comments The information contained in this document represents components of the legal health record. It is not the complete legal health record.[facility]
--- OUTSIDE RECORDS SUMMARY | 2025-06-19 15:07 | XMS_ITS | Encounter Summary ---
Author Organization [facility] Address [address] [place] [address] Phone Care Team Providers Care Aviation Neuropsychologist Name Role Phone Dung Mccormick MD Unavailable Geoff Ratliff DO Unavailable Lindsey Shin RURAL SOCIOLOGIST Unavailable [phone] Sergio Fonseca MD Primary Care Provider Encounter Details Date Type Department Care Team (Latest Contact Info) Description 03/04/2023 Transcribe Orders Virtual Department [address] [place], [place] [phone] Abad Xiao MD [address] [place] [address] [phone] [email or web address] Hepatic cirrhosis, unspecified hepatic cirrhosis type, unspecified [...] Allergy and Critical Care Medicine [address] [place] [address] [place] [address] Moose No MD 30 [place] [address] [email or web address] documented as of this encounter Results * US ABDOMEN LIMITED RIGHT UPPER QUADRANT (06/30/2023 12:14 PM EDT) Anatomical Region Laterality Modality Abdomen Ultrasound 06/30/2023 5:44 PM EDT Impressions 07/01/2023 6:09 AM EDT No focal hepatic lesion. Narrative 07/01/2023 6:09 AM EDT US ABDOMEN LIMITED RIGHT UPPER QUADRANT TECHNIQUE: US Abdominal limited right upper quadrant. COMPARISON: US ABDOMEN LIMITED RIGHT UPPER QUADRANT ; CT ABDOMEN/PELVIS WITH CONTRAST FINDINGS: Liver: No focal lesions. Main Portal Vein: Patent with normal direction of flow. Gallbladder: No gallstones or gallbladder wall thickening. Laguerre's Sign: Negative. Biliary: No intrahepatic or extrahepatic biliary ductal dilatation. The common bile duct measures 3 mm. Procedure Note Tre Larsen MD - 07/01/2023 US ABDOMEN LIMITED RIGHT UPPER QUADRANT TECHNIQUE: US Abdominal limited right upper quadrant. COMPARISON: US ABDOMEN LIMITED RIGHT UPPER QUADRANT ; CTABDOMEN/PELVIS WITH CONTRAST FINDINGS: Liver: No focal lesions. Main Portal Vein: Patent with normal direction of flow. Gallbladder: No gallstones or gallbladder wall thickening. Laguerre's Sign: Negative. Biliary: No intrahepatic or extrahepatic biliary ductal dilatation. The common bile duct measures 3 mm. IMPRESSION: No focal hepatic lesion. Abad Xiao MD IMG US ABDOMEN Final Result documented in this encounter Visit Diagnoses Diagnosis Hepatic cirrhosis, unspecified hepatic cirrhosis type, unspecified whether ascites present- Primary Hepatic cirrhosis, unspecified hepatic cirrhosis type, unspecified whether ascites present documented in this encounter Care Teams Aviation Neuropsychologist Relationship Specialty Start Date End Date Sergio Fonseca MD [address] [place] [phone] [email or web address] PCP - General Family Medicine 01/04/23 Dung Mccormick MD [email or web address] Historical LMR Provider 06/14/17 Geoff Ratliff DO [address] [place] [address] [email or web address] Primary Oncologist Hematology and Oncology 09/16/17 Lindsey Shin FNP [address] [place] [address] [email or web address] Nurse Practitioner Oncology 06/11/21 documented as of this encounter Additional Source Comments The information contained in this document represents components of the legal health record. It is not the complete legal health record.[facility]
--- OUTSIDE RECORDS SUMMARY | 2025-06-19 15:07 | XMS_ITS | Encounter Summary ---
Author Organization [facility] Address [address] [place] [address] Phone Care Team Providers Care Healthcare Consulting Manager Name Role Phone Dung Mccormick MD Unavailable Dung Mccormick MD Primary Care Provider [phone] Geoff Ratliff DO Unavailable [phone] Lindsey Shin MOLD WASHER Unavailable [phone] Sergio Fonseca MD Primary Care Provider Encounter Details Date Type Department Care Team ([facility] Contact Info) Description 10/31/2021 Procedure Pass [facility] Endoscopy Admitting Dept Virtual Department [address] [place] [address] Social History Tobacco Use Types Packs/Day Years [...] Upcoming Encounters Date Type Department Care Team ([facility] Contact Info) Description 07/16/2025 1:00 PM EST Office Visit [facility] Pulmonary, Allergy and Critical Care Medicine 10 [facility] [place], [place] [phone] Moose No MD 30 [place] [address] [email or web address] documented as of this encounter Visit Diagnoses Not on filedocumented in this encounter Care Teams Healthcare Consulting Manager Relationship Specialty Start Date End Date Dung Mccormick MD [email or web address] PCP - General Family Medicine 07/21/17 01/03/23 Sergio Fonseca MD [address] [place] [phone] [email or web address] PCP - General Family Medicine 01/04/23 Dung Mccorimck MD [email or web address] Historical LMR Provider 06/14/17 Geoff Ratliff DO [address] [place] [address] [email or web address] Primary Oncologist Hematology and Oncology 09/16/17 Lindsey Shin FNP 30 [place] [address] [email or web address] Nurse Practitioner Oncology 06/11/21 documented as of this encounter Additional Source Comments The information contained in this document represents components of the legal health record. It is not the complete legal health record.[facility]
--- OUTSIDE RECORDS SUMMARY | 2025-06-19 15:07 | XMS_ITS | Encounter Summary ---
Author Organization [facility] Address [address] [place] [address] Phone Care Team Providers Care Paleologist Name Role Phone Dung Mccormick MD Unavailable Dung Mccormick MD Primary Care Provider [phone] Geoff Ratliff DO Unavailable Lindsey Shin DRUG COUNSELOR Unavailable [phone] Sergio Fonseca MD Primary Care Provider [phone] Encounter Details Date Type Department Care Team (Latest Contact Info) Description 01/22/2022 Transcribe Orders Virtual Department 30 [place] [address] Abad Xiao MD [address] [place] [phone] [email or web address] Hepatoma (Primary Dx) Social History Tobacco Use Types [...] Critical Care Medicine [address] [place] [address] Moose No MD [address] [place] [phone] documented as of this encounter Results * US LIVER WITH ELASTOGRAPHY (02/20/2022 11:12 AM EDT) Anatomical Region Laterality Modality Abdomen Ultrasound 02/20/2022 5:12 PM EDT Impressions 02/23/2022 10:31 AM EDT The median estimated Young's modulus is greater than 13 kPa, which is suggestive of compensated advanced chronic liver disease. SOCIETY OF RADIOLOGISTS IN ULTRASOUND CONSENSUS: In the setting of elevated liver function tests, nonfasting, vascular congestion, etc., the stage of liver fibrosis may be overestimated. In some patients with NAFLD, the cut-off values for compensated advanced chronic liver disease may be lower. In causes other than viral hepatitis and NAFLD, the cut-off values are not well established. Andrews RG, Vito SR, Ridge D, Rodolfo-Francie G, Karine G. Update to the Society of Radiologists in Ultrasound Liver Elastography Consensus Statement. Radiology. 2020 Mar;296(2):263-274. doi: 10.1148/radiol.8580710804. Epub 2019Feb 05. PMID: 29739759. Narrative 02/23/2022 10:31 AM EDT US LIVER WITH ELASTOGRAPHY History: Hepatoma surveillance TECHNIQUE: US Liver Elastography. COMPARISON: Abdominal sonography 11/01/2018 FINDINGS: Liver: There is normal hepatic echogenicity when compared with the right kidney. The hepatic parenchyma is mildly heterogeneous. Main Portal Vein: Patent with normal direction of flow. Gallbladder: Normal. No gallstones or gallbladder wall thickening. Biliary: Normal. No intrahepatic or extrahepatic biliary ductal dilatation. The common bile duct measures 4 mm. Pancreas: Incompletely visualized. Aorta: Normal, where visualized sonographically. IVC: Normal intrahepatic segment. Elastography: Findings: Median estimated Young's modulus: 16.7 kPa. IQR to median ratio: 6.9% Procedure Note Latonya Rahman MD - 02/23/2022 US LIVER WITH ELASTOGRAPHY History: Hepatoma surveillance TECHNIQUE: US Liver Elastography. COMPARISON: Abdominal sonography 11/01/2018 FINDINGS: Liver: There is normal hepatic echogenicity when compared with the rightkidney. The hepatic parenchyma is mildly heterogeneous. Main Portal Vein: Patent with normal direction of flow. Gallbladder: Normal. No gallstones or gallbladder wall thickening. Biliary: Normal. No intrahepatic or extrahepatic biliary ductaldilatation. The common bile duct measures 4 mm. Pancreas: Incompletely visualized. Aorta: Normal, where visualized sonographically. IVC: Normal intrahepatic segment. Elastography: Findings: Median estimated Young's modulus: 16.7 kPa. IQR to median ratio:6.9% IMPRESSION: The median estimated Young's modulus is greater than 13 kPa, which issuggestive of compensated advanced chronic liver disease. SOCIETY OF RADIOLOGISTS IN ULTRASOUND CONSENSUS: In the setting of elevated liver function tests, nonfasting, vascularcongestion, etc., the stage of liver fibrosis may be overestimated. Insome patients with NAFLD, the cut-off values for compensated advancedchronic liver disease may be lower. In causes other than viral hepatitisand NAFLD, the cut-off values are not well established. Andrews RG, Vito SR, Ridge D, Rodolfo-Francie G, Karine G. Update to theSociety of Radiologists in Ultrasound Liver Elastography ConsensusStatement. Radiology. 2020 Mar;296(2):263-274. doi:10.1148/radiol.0931409659. Epub 2019Feb 05. PMID: [id number]. us Abad Xiao MD IMG US ABDOMEN Final Result documented in this encounter Visit Diagnoses Diagnosis Hepatoma- Primary Malignant neoplasm of liver, primary Hepatoma Malignant neoplasm of liver, primary documented in this encounter Care Teams Paleologist Relationship Specialty Start Date End Date Dung Mccormick MD PCP - General Family Medicine 07/21/17 01/03/23 Sergio Fonseca MD [address] [place] [phone] [email or web address] PCP - General Family Medicine 01/04/23 Dung Mccormick MD [email or web address] Historical LMR Provider 06/14/17 Geoff Ratliff DO [address] [place] [address] [email or web address] Primary Oncologist Hematology and Oncology 09/16/17 Lindsey Shin FNP [address] [place] [address] [email or web address] Nurse Practitioner Oncology 06/11/21 documented as of this encounter Additional Source Comments The information contained in this document represents components of the legal health record. It is not the complete legal health record.[facility]
--- OUTSIDE RECORDS SUMMARY | 2025-06-19 15:07 | XMS_ITS | Encounter Summary ---
Author Organization [facility] Address [address] [place] [address] Phone Care Team Providers Care Forestry Engineer Name Role Phone Dung Mccormick MD Unavailable Sol Flores MD Unavailable [phone] Joe Mcpherson ROTARY DRILL RIG OPERATOR Unavailable [phone] Dung Mccormick MD Primary Care Provider [phone] Geoff Ratliff DO Unavailable [phone] Lindsey Shin PAYLOADER OPERATOR Unavailable [phone] Sergio Fonseca MD Primary Care Provider Reason for Referral * Outpatient Procedure - Closed Specialty Diagnoses / Procedures Referred By Contac t Referred To Contact Radiology Diagnoses Anemia, unspecified type Chronic pancreatitis, unspecified pancreatitis type Procedures NM Liver Spleen Scan Abad Xiao MD Phone: tel: fax: [email or web address] Referral ID Status Reason Start Date Expiration Date Visits Re quested Visits Authorized [id number] Closed 11/01/2017 11/01/2018 1 1 Encounter Details Date Type Department Care Team (Latest Contact Info) Description 11/01/2017 Ancillary Orders [facility] Department [address] [place] [address] Abad Xiao MD 10 [facility] 2 [place] [address] [email or web address] Anemia, unspecified type; Chronic pancreatitis, unspecified pancreatitis type Social History [...] Pulmonary, Allergy and Critical Care Medicine 10 [facility] [place] [address] Moose No MD 30 [place] [address] [email or web address] documented as of this encounter Results * NM Liver Spleen Scan (11/08/2017 1:27 PM EDT) Anatomical Region Laterality Modality Liver, Abdomen Nuclear Medicine 11/08/2017 1:34 PM EDT Impressions 11/08/2017 1:37 PM EDT Mild increased activity evident in the marrow which could be related to mild hepatocellular disease. No hepatomegaly is seen with mild prominence in splenic size evident. No focal hepatic pathology is seen. S/S: Anemia, chronic pancreatitis POS - [id number] Narrative 11/08/2017 1:37 PM EDT DOSE: 6.1 mCi technetium 9M labeled sulfur colloid COMPARISON: Abdominal ultrasound October 22, 2017 FINDINGS: The liver is not enlarged. The spleen is minimally prominent in size. There is minor activity evident in the marrow which is a non-specific finding but could be related to some mild hepatocellular disease. No focal hepatic mass lesion is evident. Procedure Note Ant Navarro MD - 11/08/2017 DOSE: 6.1 mCi technetium 9M labeled sulfur colloid COMPARISON: Abdominal ultrasound October 22, 2017 FINDINGS: The liver is not enlarged. The spleen is minimally prominent in size. There is minor activity evident in the marrow which is a non-specificfinding but could be related to some mild hepatocellular disease. No focal hepatic mass lesion is evident. IMPRESSION: Mild increased activity evident in the marrow which could be related tomild hepatocellular disease. No hepatomegaly is seen with mild prominencein splenic size evident. No focal hepatic pathology is seen. S/S: Anemia, chronic pancreatitis POS - [id number] Abad Xiao MD IMG NM ABDOMEN Final Result documented in this encounter Visit Diagnoses Diagnosis Anemia, unspecified type Chronic pancreatitis, unspecified pancreatitis type Anemia, unspecified type Chronic pancreatitis, unspecified pancreatitis type documented in this encounter Care Teams Forestry Engineer Relationship Specialty Start Date End Date Dung Mccormick MD [email or web address] PCP - General Family Medicine 07/21/17 01/03/23 Sergio Fonseca MD [address] [place] [phone] [email or web address] PCP - General Family Medicine 01/04/23 Dung Mccormick MD [email or web address] Historical LMR Provider 06/14/17 Sol Flores MD [address] [place] [address], [address] [place] [address] [email or web address] Historical LMR Provider 06/14/17 Joe Mcpherson, ROTARY DRILL RIG OPERATOR 15 [facility], [address] [place] [address] [email or web address] Historical LMR Provider 06/14/17 09/06/21 Geoff Ratliff DO [address] [place] [phone] [email or web address] Primary Oncologist Hematology and Oncology 09/16/17 Lindsey Shin FNP [address] [place] [address] [email or web address] Nurse Practitioner Oncology 06/11/21 documented as of this encounter Additional Source Comments The information contained in this document represents components of the legal health record. It is not the complete legal health record.[facility]
--- OUTSIDE RECORDS SUMMARY | 2025-06-19 15:07 | XMS_ITS | Encounter Summary ---
Author Organization [facility] Address [address] [place] [address] Phone Care Team Providers Care Mechanical Specialist Name Role Phone Dung Mccormick MD Unavailable Dung Mccormick MD Primary Care Provider [phone] Geoff Ratliff DO Unavailable [phone] Lindsey Shin CODING QUALITY COORDINATOR Unavailable [phone] Sergio Fonseca MD Primary Care Provider [phone] Encounter Details Date Type Department Care Team (Latest Contact Info) Description 07/02/2022 Transcribe Orders [facility] [address] 2[address] [place], [place] [id number] Abad Xiao MD 10 [facility] 2 [place] [address] [email or web address] Alcoholic cirrhosis, unspecified whether ascites present (Primary Dx); Chronic pancreatitis, unspecified pancreatitis type; Exocrine pancreatic insufficiency Social History Tobacco Use Types Packs/Day Years [...] Pulmonary, Allergy and Critical Care Medicine 10 [facility] [place] [address] Moose No MD [address] [place] [address] documented as of this encounter Results * Ferritin (07/02/2022 12:05 PM EDT) FERRITIN 75 30 - 400 ug/L [facility] Blood 07/02/2022 12:0 5 PM EDT 07/02/2022 12:14 PM EDT us Abad Xiao MD LAB BLOOD ORDERABLES Final R esult [address] [address] * Iron and iron binding capacity (07/02/2022 12:05 PM EDT) IRON 129 45 - 160 ug/dL [facility] IRON BINDING CAPACITY 422 228 - 428 ug/dL [facility] TRANSFERRIN SATURAT. 31 20 - 55 % [facility] Blood 07/02/2022 12:0 5 PM EDT 07/02/2022 12:14 PM EDT us Abad Xiao MD LAB BLOOD ORDERABLES Final R esult [address] [address] * Hepatitis C antibody, qualitative (07/02/2022 12:05 PM EDT) HCV NON-REACTIV E NON-REACTI VE [facility] Blood 07/02/2022 12:0 5 PM EDT 07/02/2022 12:14 PM EDT us Abad Xiao MD LAB BLOOD ORDERABLES Final R esult Performing Organization Address City/[facility]/ZIP Co de Phone Number [address] [address] * Hepatitis B surface antigen (07/02/2022 12:05 PM EDT) HBV SURFACE ANTIGEN NON-REACTI VE NON-REACTI VE [facility] Blood 07/02/2022 12:0 5 PM EDT 07/02/2022 12:14 PM EDT us Abad Xiao MD LAB BLOOD ORDERABLES Final R esult Performing Organization Address [facility] Co de Phone Number [address] [address] * Hepatitis B surface antibody (07/02/2022 12:05 PM EDT) HBV SURFACE ANTIBODY Negative [facility] Comment: Unvaccinated: Negative Vaccinated: Positive Blood 07/02/2022 12:0 5 PM EDT 07/02/2022 12:14 PM EDT us Abad Xiao MD LAB BLOOD ORDERABLES Final R esult Performing Organization Address City/[facility]/ZIP Co de Phone Number [address] [address] * Hepatitis B core antibody, total (07/02/2022 12:05 PM EDT) HEP B CORE AB, TOT NON-REACTI VE NON-REACTI VE [facility] Blood 07/02/2022 12:0 5 PM EDT 07/02/2022 12:14 PM EDT us Abad Xiao MD LAB BLOOD ORDERABLES Final R esult [address] [place] [address] * HEPATITIS A ANTIBODY, TOTAL (07/02/2022 12:05 PM EDT) HAV TOTAL AB NON-REACTI VE NON-REACTI VE [facility] Blood 07/02/2022 12:0 5 PM EDT 07/02/2022 12:14 PM EDT us Abad Xiao MD LAB BLOOD ORDERABLES Final R esult [facility] 30 [place] [address] * (ABNORMAL) Comprehensive metabolic panel (07/02/2022 12:05 PM EDT) SODIUM 141 133 - 146 mmol/L [facility] POTASSIUM 4.4 3.3 - 5.1 mmol/L [facility] CHLORIDE 105 96 - 108 mmol/L [facility] CO2 27 21 - 35 mmol/L [facility] BUN 17 6 - 19 mg/dL [facility] CREATININE 1.60(H) 0.5 - 1.5 mg/dL [facility] GLUCOSE 58(L) 70 - 99 mg/dL [facility] ALBUMIN 4.5 3.9 - 4.8 g/dL [facility] TOTAL PROTEIN 8.0 6.5 - 8.0 g/dL [facility] CALCIUM 9.5 8.4 - 10.3 mg/dL [facility] ALKALINE PHOSPHATASE 221(H) 39 - 117 U/L [facility] TOTAL BILIRUBIN 0.5 0.0 - 1.2 mg/dL [facility] AST 34 0 - 37 U/L [facility] ALT 31 0 - 40 U/L [facility] GLOBULIN 3.5 1 - 4.8 g/dL [facility] EGFR 46(L) >59 mL/min/1.7 3m2 [facility] Comment:Estimated glomerular filtration rate calculated using the CKD-EPI refit equation. ANION GAP 13 10 - 20 mmol/L [facility] Blood 07/02/2022 12:0 5 PM EDT 07/02/2022 12:14 PM EDT Abad Xiao MD LAB BLOOD ORDERABLES Final R esult Performing Organization Address [facility] Co de Phone Number [address] [address] * Smooth Muscle Antibody (07/02/2022 12:05 PM EDT) SMOOTH MUSCLE AB POSITIVE AT 1:160 [facility] Comment: Performing Physician, Porfirio Reese M.D., [id number] Normal: Negative at 1:20 Blood 07/02/2022 12:0 5 PM EDT 07/02/2022 12:14 PM EDT Abad Xiao MD LAB BLOOD ORDERABLES Final R esult Performing Organization Address [facility] Co de Phone Number [address] [address] * (ABNORMAL) Antinuclear antibody (LALO) (07/02/2022 12:05 PM EDT) LALO SCREEN ON HEP 2 Positive(A ) Negative [facility] Comment:An LALO Titer has bee n reflexed. The results will follow. Blood 07/02/2022 12:0 5 PM EDT 07/02/2022 12:14 PM EDT Abad Xiao MD LAB BLOOD ORDERABLES Final R esult Performing Organization Address City/[facility] Co de Phone Number [address] [address] * AFP (non-maternal specimens) (07/02/2022 12:05 PM EDT) AFP (NON-MATERNAL) 2.4 <7.9 ng/mL [facility] Blood 07/02/2022 12:0 5 PM EDT 07/02/2022 12:14 PM EDT us Abad Xiao MD LAB BLOOD ORDERABLES Final R esult [address] [address] documented in this encounter Visit Diagnoses Diagnosis Alcoholic cirrhosis, unspecified whether ascites present- Primary Chronic pancreatitis, unspecified pancreatitis type Exocrine pancreatic insufficiency Other specified disease of pancreas documented in this encounter Care Teams Mechanical Specialist Relationship Specialty Start Date End Date Dung Mccormick MD [email or web address] PCP - General Family Medicine 07/21/17 01/03/23 Sergio Fonseca MD [address] [place] [phone] [email or web address] PCP - General Family Medicine 01/04/23 Dung Mccormick MD [email or web address] Historical LMR Provider 06/14/17 Geoff Ratliff DO [address] [place] [address] [email or web address] Primary Oncologist Hematology and Oncology 09/16/17 Lindsey Shin FNP [address] [place] [address] [email or web address] Nurse Practitioner Oncology 06/11/21 documented as of this encounter Additional Source Comments The information contained in this document represents components of the legal health record. It is not the complete legal health record.[facility]
--- OUTSIDE RECORDS SUMMARY | 2025-06-19 15:07 | XMS_ITS | Encounter Summary ---
Author Organization [facility] Address [address] [place] [address] Phone Care Team Providers Care Post Tensioning Ironworker Helper Name Role Phone Dung Mccormick MD Unavailable Geoff Ratliff DO Unavailable Lindsey Shin WELT SEWER Unavailable [phone] Sergio Fonseca MD Primary Care Provider [phone] Encounter Details Date Type Department Care Team (Latest Contact Info) Description 05/18/2023 Transcribe Orders [facility] [address] [id number] Michelle Grey, PA 10 [place], [place] [id number] Hepatic cirrhosis, unspecified hepatic cirrhosis type, unspecified [...] Critical Care Medicine [address] [place] [address] Moose No MD [address] [place] [address] documented as of this encounter Results * Ova and parasites, stool (05/20/2023 10:00 AM EDT) Parasitic exam FINAL 3 1089 [facility] DPT OF LAB MED AND PAT+ Comment: (NOTE) SOURCE: STOOL, STLP OVA AND PARASITE, MICROSCOPY, F FINAL No parasites seen. Cryptosporidium, Cyclospora, and microsporidia are not readily detected by this method. Single negative specimen does not rule out parasitic infection. Stool (Stool) 05/20/2023 10: 00 AM EDT 05/20/2023 10:46 AM EDT Michelle MUNOZ MICROBIOLOGY - GENERAL VIKTOR CAIN Final Result [facility] DPT OF LAB MED AND PAT+ [address] [place] [address] * Giardia antigen screen (05/20/2023 10:00 AM EDT) ST GIARDIA ANTIGEN Negative Negative [facility] DPT OF LAB MED AND PAT+ Comment: (NOTE) ADDITIONAL INFORMATION Test Performed by Enzyme Immunoassay. Stool (Stool) 05/20/2023 10: 00 AM EDT 05/20/2023 10:46 AM EDT Michelle MUNOZ MICROBIOLOGY - GENERAL ORDTigre CAIN Final Result Performing Organization Address [facility]/State/ZIP Co de Phone Number [facility] DPT OF LAB MED AND PAT+ [address] [place] [address] * (ABNORMAL) Pancreatic Elastase, Stool (05/20/2023 10:00 AM EDT) Pancreatic Elastase, Feces <40(L) >200 (Normal) mcg/g [facility] LAB MED/[facility] Comment: (NOTE) Interpretation: Abnormal (<100 mcg/g); Consistent with pancreatic insufficiency Stool (Stool) 05/20/2023 10: 00 AM EDT 05/20/2023 10:46 AM EDT Michelle MUNOZ BODY FLUIDS AND STOOLS ORDTigre CAIN Final Result Performing Organization Address [facility] [[email or web address]] de Phone Number [facility] LAB MED/[facility] [address] [address] [place] [address] * Calprotectin, stool (05/20/2023 10:00 AM EDT) STOOL CALPROTECTIN 78 mcg/g [facility] Comment: (NOTE) Reference Range: <50 Normal 50-120 Borderline >120 Elevated Calprotectin in Crohn's disease and ulcerative colitis can be five to several thousand times above the reference population (50 mcg/g or less). Levels are usually 50 mcg/g or less in healthy patients and with irritable bowel syndrome. Repeat testing in 4-6 weeks is suggested for borderline values. Stool (Stool) 05/20/2023 10: 00 AM EDT 05/20/2023 10:46 AM EDT Michelle MUNOZ BODY FLUIDS AND STOOLS ORDE RABCARLOZ Final Result Performing Organization Address City/[facility]/ZIP Co de Phone Number [facility] [address] [place] [phone], [facility] [phone] * Stool culture (05/20/2023 10:00 AM EDT) Special Requests None 05/20/2023 10:43 AM EDT [facility] Stool Culture NO SALMONELLA, SHIGELLA OR CAMPYLOBACTER ISOLATED 05/21/2023 12:54 PM EDT [facility] Stool (Stool) 05/20/2023 10: 00 AM EDT 05/20/2023 10:46 AM EDT Michelle MUNOZ MICROBIOLOGY - GENERAL ORDE ANT Final Result [facility] [address] [place] [address] * Ova and parasites, stool (05/19/2023 9:00 AM EDT) Parasitic exam FINAL 3 1500 [facility] DPT OF LAB MED AND PAT+ Comment: (NOTE) SOURCE: STOOL, STLP OVA AND PARASITE, MICROSCOPY, F FINAL No parasites seen. Cryptosporidium, Cyclospora, and microsporidia are not readily detected by this method. Single negative specimen does not rule out parasitic infection. Stool (Stool) 05/19/2023 9:0 0 AM EDT 05/20/2023 10:45 AM EDT Michelle MUNOZ MICROBIOLOGY - GENERAL ORDE ANT Final Result [facility] DPT OF LAB MED AND PAT+ [address] [place] [address] * (ABNORMAL) Lipase (05/18/2023 1:50 PM EDT) LIPASE 6(L) 16 - 63 U/L [facility] Blood 05/18/2023 1:50 PM EDT 05/18/2023 2:07 PM EDT Michelle MUNOZ LAB BLOOD ORDERABLES Final Result [address] [address] * (ABNORMAL) Comprehensive metabolic panel (05/18/2023 1:50 PM EDT) SODIUM 142 133 - 146 mmol/L [facility] POTASSIUM 4.4 3.3 - 5.1 mmol/L [facility] CHLORIDE 105 96 - 108 mmol/L [facility] CO2 28 21 - 35 mmol/L [facility] BUN 14 6 - 19 mg/dL [facility] CREATININE 1.30 0.5 - 1.5 mg/dL [facility] GLUCOSE 159(H) 70 - 99 mg/dL [facility] ALBUMIN 4.2 3.9 - 4.8 g/dL [facility] TOTAL PROTEIN 7.3 6.5 - 8.0 g/dL [facility] CALCIUM 8.7 8.4 - 10.3 mg/dL [facility] ALKALINE PHOSPHATASE 300(H) 39 - 117 U/L [facility] TOTAL BILIRUBIN 0.5 0.0 - 1.2 mg/dL [facility] AST 42(H) 0 - 37 U/L [facility] ALT 67(H) 0 - 40 U/L [facility] GLOBULIN 3.1 1 - 4.8 g/dL [facility] EGFR 58(L) >59 mL/min/1.7 3m2 [facility] Comment:Estimated glomerular filtration rate calculated using the CKD-EPI refit equation. ANION GAP 13 10 - 20 mmol/L [facility] Blood 05/18/2023 1:50 PM EDT 05/18/2023 2:07 PM EDT us Michelle MUNOZ LAB BLOOD ORDERABLES Final Result [address] [address] * (ABNORMAL) CBC and differential (05/18/2023 1:50 PM EDT) WBC 6.12 4.00 - 11.00 K/uL [facility] RBC 4.66 3.90 - 5.69 M/uL [facility] HGB 13.4 12.4 - 17.3 g/dL [facility] HCT 42.6 37.0 - 51.0 % [facility] PLT 123(L) 140 - 430 K/uL [facility] MCV 91.4 78.0 - 97.0 fL [facility] MCH 28.8 25.0 - 33.0 pg [facility] MCHC 31.5(L) 32.0 - 36.0 g/dL [facility] RDW 14.2 11.0 - 15.0 % [facility] MPV 9.6 8.4 - 12.8 fl [facility] DIFF METHOD Auto [facility] NEUTS 68.4 43.0 - 75.0 % [facility] LYMPHS 19.6 18.2 - 47.4 % [facility] MONOS 6.2 4.00 - 11.00 % [facility] EOS 4.6 0.0 - 8.0 % [facility] BASOS 0.7 0.0 - 2.0 % [facility] Granulocytes, immature (%) 0.5 0.0 - 0.9 % [facility] ABSOLUTE NEUTS 4.19 1.80 - 7.70 K/uL [facility] ABSOLUTE LYMPHS 1.20 1.00 - 3.10 K/uL [facility] ABSOLUTE MONOS 0.38 0.20 - 0.80 K/uL [facility] ABSOLUTE EOS 0.28 0.00 - 0.80 K/uL [facility] ABSOLUTE BASOS 0.04 0.00 - 0.09 K/uL [facility] Granulocytes, immature 0.03 0.00 - 0.05 K/uL [facility] Blood 05/18/2023 1:50 PM EDT 05/18/2023 2:07 PM EDT us Michelle MUNOZ LAB BLOOD ORDERABLES Final Result [facility] [address] [place] [address] * AFP (non-maternal specimens) (05/18/2023 1:50 PM EDT) AFP (NON-MATERNAL) <1.8 <7.9 ng/mL [facility] Comment: Test Methodology Jori [id number] Patient results determined by assays using different manufacturers or methods may not be comparable. Blood 05/18/2023 1:50 PM EDT 05/18/2023 2:07 PM EDT Michelle MUNOZ LAB BLOOD ORDERABLES Final Result [facility] [address] [place] [address] * Ova and parasites, stool (05/18/2023 10:42 AM EDT) Parasitic exam FINAL 3 1250 [facility] DPT OF LAB MED AND PAT+ Comment: (NOTE) SOURCE: STOOL, STLP OVA AND PARASITE, MICROSCOPY, F FINAL No parasites seen. Red blood cells present. Cryptosporidium, Cyclospora, and microsporidia are not readily detected by this method. Single negative specimen does not rule out parasitic infection. Stool (Stool) 05/18/2023 10: 42 AM EDT 05/20/2023 10:45 AM EDT us Michelle MUNOZ MICROBIOLOGY - GENERAL VIKTOR CAIN Final Result [facility] DPT OF LAB MED AND PAT+ [address] [place] [address] documented in this encounter Visit Diagnoses Diagnosis Hepatic cirrhosis, unspecified hepatic cirrhosis type, unspecified whether ascites present- Primary Diarrhea, unspecified type documented in this encounter Care Teams Post Tensioning Ironworker Helper Relationship Specialty Start Date End Date Sergio Fonseca MD [address] [place] [phone] [email or web address] PCP - General Family Medicine 01/04/23 Dung Mccormick MD [email or web address] Historical LMR Provider 06/14/17 Geoff Ratliff DO [address] [place] [address] [email or web address] Primary Oncologist Hematology and Oncology 09/16/17 Lindsey Shin FNP [address] [place] [address] [email or web address] Nurse Practitioner Oncology 06/11/21 documented as of this encounter Additional Source Comments The information contained in this document represents components of the legal health record. It is not the complete legal health record.[facility]
== END 2025-06-19 12:59 | disposition home or self-care (01) ==
LOC: HO.HUSH 11:36
PROVIDERS: Visit Provider Urology
DX: N30.11 Interstitial cystitis (chronic) with hematuria (principal); N20.0 Calculus of kidney
CPT/HCPCS: 99213; G2211

== ENCOUNTER → 2025-06-19 11:35 | Outpatient (BNVA) | payer OTHER, SELFPAY | PROVIDERS: Visit Provider Urology | DX: N30.11 Interstitial cystitis (chronic) with hematuria (principal); N20.0 Calculus of kidney | CPT/HCPCS: 99212 ==